=== PATIENT | female | born 1955 | race Caucasian/White ===

== ENCOUNTER 2020-08-07 12:29 | Inpatient (IN) | payer MEDICAID ==
[2020-08-07] MEDS ORDERED: SODIUM CHLORIDE 0.9% 1,000 ML IV STA (12:50)
[2020-08-07 13:15] LABS: Basophils # (A) 0.1 k/uL (0-0.2); Basophils % (A) 1 %; Eosinophils # (A) 0.2 k/uL (0-0.7); Eosinophils % (A) 2 %; HCT 49.2 % (34.0-46.0); HGB 16.9 gm/dL (11.4-16.0); Lymphocytes # (A) 3.3 k/uL (1.0-4.8); Lymphocytes % (A) 33 %; MCH 30.6 pg (25.0-35.0); MCHC 34.4 g/dL (31.0-37.0); MCV 88.9 fL (80.0-100.0); Monocytes # (A) 0.4 k/uL (0-1.0); Monocytes % (A) 4 %; Neutrophils # (A) 6.1 k/uL (1.3-7.7); Neutrophils % (A) 60 %; Platelet Count 272 k/uL (150-450); RBC 5.53 m/uL (3.80-5.40); RDW 12.4 % (11.5-15.5); WBC 10.2 k/uL (3.8-10.6)
[2020-08-07 13:31] LABS: ALT 33 U/L (4-34); AST 26 U/L (14-36); African American GFR (CKD) >90 (>60 ml/min/1.73 sqM); Albumin 4.5 g/dL (3.5-5.0); Alkaline Phosphatase 103 U/L (38-126); Anion Gap 8 mmol/L; Blood Urea Nitrogen 23 mg/dL (7-17); Calcium 9.8 mg/dL (8.4-10.2); Carbon Dioxide 28 mmol/L (22-30); Chloride 100 mmol/L (98-107); Creatine Kinase 73 U/L (30-135); Glucose 439 mg/dL (74-99); Non-African American GFR(CKD) >90 (>60 ml/min/1.73 sqM); Potassium 4.5 mmol/L (3.5-5.1); Sodium 136 mmol/L (137-145); Total Bilirubin 0.7 mg/dL (0.2-1.3); Total Protein 7.6 g/dL (6.3-8.2)
--- NOTE | 2020-08-07 13:32 | ED ---
Neuro HPI - General Chief Complaint: Neuro Symptoms/Deficit Stated Complaint: rt sided numbness Time Seen by Provider: 08/07/20 12:50 Source: patient, RN notes reviewed Mode of arrival: ambulatory Limitations: no limitations - History of Present Illness Is the patient presenting with stroke symptoms?: Yes Initial Comments: This is a 64-year-old female with a history of coronary artery bypass 3 and thoroughly 1999 and also history of stents in both legs history of TIA 2011 and also a left carotid artery occlusion. He has had 2 days ago of right arm numbness yesterday she had right arm numbness and today she has right facial numbness. She has some decreased strength in the extremities also. He states he woke up this way this morning with the facial aspect. She denies any headache dizziness blurry vision nausea vomiting some difficulty with ambulation no palpitations no other complaints or modifying factors - Related Data Home Medications: Home Medications Medication Instructions Recorded Confirmed Aspirin 81 mg PO DAILY 06/18/13 06/18/13 Atorvastatin [Lipitor] 20 mg PO HS 06/18/13 06/18/13 Carvedilol [Coreg] 3.125 mg PO BID 06/18/13 06/18/13 Clopidogrel Bisulfate [Plavix] 75 mg PO DAILY 06/18/13 06/18/13 Insulin Glargine [Lantus] 0 unit SQ HS 06/18/13 06/18/13 Pregabalin [Lyrica] 75 mg PO BID 06/18/13 06/18/13 lisinopriL [Prinivil] 20 mg PO DAILY 06/18/13 06/18/13 Previous Rx's Medication Instructions Recorded Ibuprofen [Motrin] 600 mg PO Q6HR PRN #20 tab 06/18/13 Allergies/Adverse Reactions: Allergies Allergy/AdvReac Type Severity Reaction Status Date / Time No Known Allergies Allergy Verified 08/07/20 12:37 Review of Systems ROS Statement: Those systems with pertinent positive or pertinent negative responses have been documented in the HPI. ROS Other: All systems not noted in ROS Statement are negative. General Exam - General Exam Comments Initial Comments: This a well-developed well-nourished awake alert oriented 3 female Limitations: no limitations General appearance: alert, in no apparent distress Head exam: Present: atraumatic, normocephalic, normal inspection Eye exam: Present: normal appearance, PERRL, EOMI. Absent: scleral icterus, conjunctival injection, periorbital swelling ENT exam: Present: normal exam, mucous membranes moist Neck exam: Present: normal inspection. Absent: tenderness, meningismus, lymphadenopathy Respiratory exam: Present: normal lung sounds bilaterally. Absent: respiratory distress, wheezes, rales, rhonchi, stridor Cardiovascular Exam: Present: regular rate, normal rhythm, normal heart sounds. Absent: systolic murmur, diastolic murmur, rubs, gallop, clicks GI/Abdominal exam: Present: soft, normal bowel sounds. Absent: distended, tenderness, guarding, rebound, rigid Extremities exam: Present: normal inspection, full ROM, normal capillary refill. Absent: tenderness, pedal edema, joint swelling, calf tenderness Back exam: Present: normal inspection Neurological exam: Present: alert, oriented X3, CN II-XII intact, motor sensory deficit (Leg weakness right upper and lower extremity compared to the left facial droop seen) Psychiatric exam: Present: normal affect, normal mood Skin exam: Present: warm, dry, intact, normal color. Absent: rash Stroke MDM - Lab Data Result diagrams: 08/07/20 13:00 08/07/20 13:00 Lab Results 08/07/20 08/07/20 08/07/20 Range/Units 13:00 13:00 13:00 WBC 10.2 (3.8-10.6) k/uL RBC 5.53 H (3.80-5.40) m/uL Hgb 16.9 H (11.4-16.0) gm/dL Hct 49.2 H (34.0-46.0) % MCV 88.9 (80.0-100.0) fL MCH 30.6 (25.0-35.0) pg MCHC 34.4 (31.0-37.0) g/dL RDW 12.4 (11.5-15.5) % Plt Count 272 (150-450) k/uL MPV 8.0 Neutrophils % 60 % Lymphocytes % 33 % Monocytes % 4 % Eosinophils % 2 % Basophils % 1 % Neutrophils # 6.1 (1.3-7.7) k/uL Lymphocytes # 3.3 (1.0-4.8) k/uL Monocytes # 0.4 (0-1.0) k/uL Eosinophils # 0.2 (0-0.7) k/uL Basophils # 0.1 (0-0.2) k/uL PT 10.3 (9.0-12.0) sec INR 1.0 (<1.2) APTT 20.2 L (22.0-30.0) sec Sodium 136 L (137-145) mmol/L Potassium 4.5 (3.5-5.1) mmol/L Chloride 100 (98-107) mmol/L Carbon Dioxide 28 (22-30) mmol/L Anion Gap 8 mmol/L BUN 23 H (7-17) mg/dL Creatinine 0.69 (0.52-1.04) mg/dL Est GFR (CKD-EPI)AfAm >90 (>60 ml/min/1.73 sqM) Est GFR (CKD-EPI)NonAf >90 (>60 ml/min/1.73 sqM) Glucose 439 H (74-99) mg/dL Calcium 9.8 (8.4-10.2) mg/dL Total Bilirubin 0.7 (0.2-1.3) mg/dL AST 26 (14-36) U/L ALT 33 (4-34) U/L Alkaline Phosphatase 103 (38-126) U/L Creatine Kinase 73 (30-135) U/L Troponin I (0.000-0.034) ng/mL Total Protein 7.6 (6.3-8.2) g/dL Albumin 4.5 (3.5-5.0) g/dL 08/07/20 Range/Units 13:00 WBC (3.8-10.6) k/uL RBC (3.80-5.40) m/uL Hgb (11.4-16.0) gm/dL Hct (34.0-46.0) % MCV (80.0-100.0) fL MCH (25.0-35.0) pg MCHC (31.0-37.0) g/dL RDW (11.5-15.5) % Plt Count (150-450) k/uL MPV Neutrophils % % Lymphocytes % % Monocytes % % Eosinophils % % Basophils % % Neutrophils # (1.3-7.7) k/uL Lymphocytes # (1.0-4.8) k/uL Monocytes # (0-1.0) k/uL Eosinophils # (0-0.7) k/uL Basophils # (0-0.2) k/uL PT (9.0-12.0) sec INR (<1.2) APTT (22.0-30.0) sec Sodium (137-145) mmol/L Potassium (3.5-5.1) mmol/L Chloride (98-107) mmol/L Carbon Dioxide (22-30) mmol/L Anion Gap mmol/L BUN (7-17) mg/dL Creatinine (0.52-1.04) mg/dL Est GFR (CKD-EPI)AfAm (>60 ml/min/1.73 sqM) Est GFR (CKD-EPI)NonAf (>60 ml/min/1.73 sqM) Glucose (74-99) mg/dL Calcium (8.4-10.2) mg/dL Total Bilirubin (0.2-1.3) mg/dL AST (14-36) U/L ALT (4-34) U/L Alkaline Phosphatase (38-126) U/L Creatine Kinase (30-135) U/L Troponin I 0.061 H* (0.000-0.034) ng/mL Total Protein (6.3-8.2) g/dL Albumin (3.5-5.0) g/dL - NIH Stroke Scale 1a. Level of Consciousness: (0) alert 1b. LOC Questions: (0) answers correctly 1c. LOC Commands: (0) performs tasks correctly 2. Best Gaze: (0) normal 3. Visual: (0) no visual loss 4. Facial Palsy: (0) normal symmetrical movement 5a. Motor Arm Left: (0) no drift 5b. Motor Arm Right: (0) no drift 6a. Motor Leg Left: (0) no drift 6b. Motor Leg Right: (0) no drift 7. Limb Ataxia: (0) absent 8. Sensory: (0) normal 9. Best Language: (0) no aphasia 10. Dysarthria: (0) normal 11. Extinction/Inattention: (0) no abnormality - Medical Decision Making I did discuss the findings with the patient and family as well as with Dr. Verma patient will be admitted with neurological and cardiology consultation patient does have an elevated troponin. - Radiology Data Radiology results: report reviewed (Image reviewed evidence of a hypodensity in the left frontal lobe which may represent a subacute infarct. CAT scan with contrast shows evidence of a occluded left carotid artery this is chronic and no apparent acute findings are seen here.), image reviewed - EKG Data -: EKG Interpreted by Me EKG shows normal: sinus rhythm (Sinus rhythm 80. Interval 128 QRS duration 84 QT since QTC 380/442 possible left atrial enlargement nonspecific septal change s) Past Medical History Past Medical History: Coronary Artery Disease (CAD), Diabetes Mellitus, Hyperlipidemia, Hypertension, Vascular Disorder Additional Past Medical History / Comment(s): neuropathy History of Any Multi-Drug Resistant Organisms: None Reported Past Surgical History: Coronary Bypass/CABG, Heart Catheterization Additional Past Surgical History / Comment(s): triple bypass Past Psychological History: No Psychological Hx Reported Smoking Status: Current every day smoker Past Alcohol Use History: None Reported Past Drug Use History: Marijuana Course Vital Signs 08/07/20 08/07/20 08/07/20 12:30 13:37 14:00 Temperature 98.3 F Pulse Rate 82 60 61 Respiratory 20 18 18 Rate Blood Pressure 187/85 138/92 O2 Sat by Pulse 95 95 95 Oximetry Disposition Clinical Impression: Cerebrovascular accident (CVA), Transient cerebral ischemia, Elevated troponin Disposition: ADMITTED IP TO THIS HOSP Condition: Stable Referrals: Amish Verma DO [Primary Care Provider] - 1-2 days
--- NOTE | 2020-08-07 13:39 | CT ---
EXAMINATION TYPE: CT brain wo con for TPA DATE OF EXAM: 08/07/2020 COMPARISON: INDICATION: CODE STROKE. Right sided numbness, progressively worsening since Wednesday DLP: 1096.8 mGycm, Automated exposure control for dose reduction was used. CONTRAST: None CT of the brain is performed utilizing 3 mm thick sections through the posterior fossa and 3 mm thick sections through the remaining calvarium. Study is performed within 24 hours of arrival to the hosp ital. No abnormal hyperdensity is present to suggest an acute intracranial hemorrhage. No mass lesion is evident. No acute infarcts are evident. There is hypodensity within the subcortical frontal lobe. This is age indeterminate. Subcortical infarct or chronic white matter change may be present. Consider MRI for ad ditional evaluation. Ventricles and sulci are appropriate for the patient age. Paranasal sinuses and mastoid air cells within the [id number] are clear. IMPRESSIONS: 1. Subcortical hypodensity within the left frontal lobe could be subacute or chronic. Consider MRI for additional evaluation. 2. No definite acute changes identified. MRI can further evaluate the brain.
[2020-08-07 13:41] LABS: Prothrombin Time 10.3 sec (9.0-12.0)
--- NOTE | 2020-08-07 13:42 | XR ---
EXAMINATION TYPE: XR chest 2V DATE OF EXAM: 08/07/2020 COMPARISON: Chest x-ray 06/18/2013 HISTORY: Altered mental status TECHNIQUE: Frontal and lateral views of the chest are obtained. FINDINGS: There is no focal air space opacity, pleural effusion, or pneumothorax seen. The cardiac silhouette size is within normal limits. Patient is post median sternotomy. The osseous structures a re intact, there is thoracic spondylosis, the aorta is dense. IMPRESSION: No acute cardiopulmonary process.
[2020-08-07 13:45] LABS: Partial Thromboplastin Time 20.2 sec (22.0-30.0)
--- NOTE | 2020-08-07 14:55 | CT ---
EXAMINATION TYPE: CT angio head neck DATE OF EXAM: 08/07/2020 HISTORY: Code stroke COMPARISON: None CT DLP: 585.8 mGycm. Automated Exposure Control for Dose Reduction was Utilized. TECHNIQUE: CTA scan of the neck is performed without and with IV Contrast, patient injected with 65 ml mL of Isovue 370, axial images are obtained, coronal and sagittal reformatted images are reviewed. Three-D reconstructed images are created on an independent workstation and reviewed. Source images are reviewed. FINDINGS: Carotid/Vascular Structures: There is a four-vessel arch. Right vertebral artery is not identified on reconstructed images but is evident and codominant on the source images. These extend to the skull b ase. Intracranial vertebral arteries combine the basilar artery normally. Atherosclerotic calcification at the bilateral carotid bifurcations. Significant flow-limiting stenos is is not evident on the right. Narrowing is estimated at 30% based on measurement. Atherosclerotic calcification is at the left carotid bifurcation. Contrast extends into external [place] arteries. No contrast within the internal carotid artery is evident. Some retrograde fill of the foramen Lacerum may be present. Cervical of [place]: Vertebral basilar system appears normal. Posterior cerebral vasculature is unrema rkable. Internal carotid arteries bifurcate normally into A1 and M1 segments. The left A1 segment courtney ears hypoplastic. There may be retrograde flow of the distal left internal carotid artery. A2 segment s are normal. The anterior communicating artery is patent. Left Posterior communicating artery is pat ent. Right posterior communicating artery is patent. IMPRESSION: 1. Atheromatous plaquing bilateral carotid bifurcations. There appears to be obstruction of the left internal carotid artery at its origin. Atheromatous plaquing without significant stenosis at the rig ht internal carotid artery origin. 2. Normal lower [place] of [place]
[2020-08-07] MEDS ORDERED: ASPIRIN 325 MG TAB PO STA (15:15)
[2020-08-07] MEDS: SODIUM CHLORIDE 0.9% 1,000 ML IV SCH (15:28)
[2020-08-07] MEDS: carvediloL 3.125 MG TAB PO SCH (19:12)
[2020-08-07 20:25] LABS: Glucose,Whole Blood 390 mg/dL (75-99)
[2020-08-07] MEDS ORDERED: PREGABALIN 75 MG CAP PO SCH (21:00)
[2020-08-07] MEDS ORDERED: ATORVASTATIN 20 MG TAB PO SCH (21:00)
[2020-08-07] MEDS: GABAPENTIN 100 MG CAP PO SCH (21:33)
[2020-08-07] MEDS: INSULIN DETEMIR (LEVEMIR) 100 UNIT/ML SYR SQ SCH (21:33)
[2020-08-08] MEDS: SODIUM CHLORIDE 0.9% 1,000 ML IV SCH ×3 (04:35→20:25)
[2020-08-08 05:28] LABS: Hemoglobin A1C 11.1 % (4.0-6.0)
[2020-08-08 06:22] LABS: Glucose,Whole Blood 104 mg/dL (75-99)
[2020-08-08] MEDS: INSULIN ASPART (NovoLOG) 100 UNIT/ML VIAL SQ SCH ×4 (06:28→20:22)
[2020-08-08] MEDS: carvediloL 3.125 MG TAB PO SCH ×2 (06:32→17:05)
[2020-08-08] MEDS: GABAPENTIN 100 MG CAP PO SCH ×2 (08:02→20:22)
[2020-08-08] MEDS: lisinopriL 20 MG TAB PO SCH (08:03)
[2020-08-08] MEDS ORDERED: ASPIRIN 325 MG TAB PO SCH (09:00)
[2020-08-08] MEDS ORDERED: CLOPIDOGREL 75 MG TAB PO SCH (09:00)
[2020-08-08] MEDS: MAGNESIUM OXIDE 400 MG TAB PO SCH (09:38)
[2020-08-08] MEDS: CHOLECALCIFEROL 25 MCG (1000 IU) TABLET PO SCH (09:38)
[2020-08-08] MEDS: PANTOPRAZOLE 40 MG/10 ML VIAL IVP SCH (09:38)
[2020-08-08 09:43] LABS: Chol/HDL Ratio 7.74; LDL Cholesterol,Calculated 171.2 mg/dL (0.0-131.0); VLDL Calculation 57.8 mg/dL (5.00-40.00)
--- NOTE | 2020-08-08 11:29 | P.CNNES ---
History of Present Illness Consult date: 08/08/20 Requesting physician: Steve Seay Reason for Consult: TIA vs stroke History of Present Illness: This is a 64-year-old woman with medical history of transient ischemic attack in 2011, left carotid occlusion, right carotid stenosis, coronary artery disease status post CABG who presented to the emergency department on 08/07/2020 for right sided numbness and tingling. She initially had right arm numbness and tingling for the last 2 days prior to presentation then noticed progressing to right lower extremity then day prior to that presented to the hospital it involved the right face. He denies of any focal weakness, any difficulty getting words out, and difficulty walking, any visual disturbance, denies of any headache. She stated that she already has a known diagnosis of left carotid occlusion and she has right carotid stenosis and she follows up with Dr. Pena (concrete mixer operator over [facility]) and has survielance ultrasound. He smokes one half pack which last for about a week and she's been smoking for years. Denies any illicit drug use. Social drinks alcohol. Her medication consist of aspirin 81, Lipitor 80 mg, carvedilol, Plavix 75, gabapentin 100 mg 1 tablet twice a day, insulin, lispro pill. Some of the workup in the hospital consisted of: Initial vital signs: Blood pressure of 187/85, heart rate of 82, respiratory of 20, temperature of 98.3 Fahrenheit oral and pulse ox of 95% room air. CT of the head is reported as subcortical hypodensity within the left frontal lobe could be subacute or chronic. Consider MRI for additional evaluation. No definite acute changes identified. MRI can further evaluate the the brain. CT angiography of the head and neck was reported as atheromatous plaque in bilateral carotid bifurcation. There appears to be obstruction of the left internal carotid artery at its origin. Atheromatous plaquing without significant stenosis at the right internal carotid artery origin. Normal [place] of [place]. EKG is reported as normal sinus rhythm. Possible left atrial enlargement. Septal infarct, age undetermined. Abnormal EKG. Initial sodium is 136 which is mildly low and the glucose is 439 which is elevated. The hemoglobin A1c is 11.1 which patient's diabetes was uncontrolled AST is 26 and ALT of 33, creatinine is 0.69 and all within normal limits Troponin is 0.061 repeated 0.074 which are elevated. Review of Systems Review of system: The 12 point system was reviewed and apparent positive and negative per HPI. Past Medical History Past Medical History: Coronary Artery Disease (CAD), Diabetes Mellitus, Hyperlipidemia, Hypertension, Vascular Disorder Additional Past Medical History / Comment(s): neuropathy, stents in bilat legs History of Any Multi-Drug Resistant Organisms: None Reported Past Surgical History: Coronary Bypass/CABG, Heart Catheterization Additional Past Surgical History / Comment(s): triple bypass 2013 Past Anesthesia/Blood Transfusion Reactions: No Reported Reaction Past Psychological History: No Psychological Hx Reported Smoking Status: Current every day smoker Past Alcohol Use History: None Reported Past Drug Use History: Marijuana Medications and Allergies Home Medications Medication Instructions Recorded Confirmed Type Aspirin 81 mg PO DAILY 06/18/13 08/07/20 History Carvedilol [Coreg] 3.125 mg PO BID 06/18/13 08/07/20 History Clopidogrel Bisulfate [Plavix] 75 mg PO DAILY 06/18/13 08/07/20 History Atorvastatin [Lipitor] 80 mg PO HS 08/07/20 08/07/20 History Cholecalciferol (Vitamin D3) 125 mcg PO DAILY 08/07/20 08/07/20 History [Vitamin D3 (5000 Iu)] Citrical(Max +) 1 tab PO DAILY 08/07/20 08/07/20 History Gabapentin [Neurontin] 100 mg PO BID 08/07/20 08/07/20 History Insulin Glargine,Hum.rec.anlog 80 unit SQ HS 08/07/20 08/07/20 History [Basaglar Kwikpen U-100] Lisinopril [Prinivil] 10 mg PO DAILY 08/07/20 08/07/20 History Magnesium Oxide 400 mg PO DAILY 08/07/20 08/07/20 History Turmeric/Turmeric Root Extract 1 cap PO BID 08/07/20 08/07/20 History [Turmeric 450-50 mg Capsule] Allergies Allergy/AdvReac Type Severity Reaction Status Date / Time No Known Allergies Allergy Verified 08/07/20 15:27 Physical Examination - Vital Signs Vital Signs: Vital Signs Temp Pulse Pulse Resp BP BP Pulse Ox 08/08/20 08:00 16 08/08/20 07:57 96.1 F L 68 16 132/58 95 08/08/20 04:00 97.4 F L 68 17 116/65 93 L 08/07/20 23:14 65 16 117/73 96 08/07/20 20:00 98.5 F 58 L 16 130/67 96 08/07/20 19:06 97.5 F L 77 16 142/74 95 08/07/20 17:18 98.3 F 61 18 156/75 95 08/07/20 17:00 61 18 156/75 95 08/07/20 16:00 63 18 140/85 95 08/07/20 15:17 61 18 95 08/07/20 15:00 97 18 135/62 95 08/07/20 14:00 61 18 133/63 95 08/07/20 13:37 60 18 138/92 95 08/07/20 12:30 98.3 F 82 20 187/85 95 Intake and Output 08/07/20 08/08/20 08/08/20 22:59 06:59 14:59 Other: # Voids 1 Weight 88.18 kg 87.8 kg GENERAL: The patient is lying in bed and is not in acute distress. CHEST: The heart rate is regular rate rhythm. No murmurs to auscultation. No carotid bruit noted bilaterally. LUNG: Clear to auscultation bilaterally no wheezing noted throughout. Not labored breathing. ABDOMEN/GI: Bowel sounds present in all 4 quadrants. No tenderness to palpation throughout. NEUROLOGICAL: Higher mental function: The patient is awake, alert, oriented to self, place and time. Patient is following commands. No aphasia and no neglect. Cranial nerves: The pupils are round, equal and reactive to light and accommodation. Visual melvin are full to confrontation throughout. Extraocular movement is intact no nystagmus is noted. Facial sensation is normal to touch throughout. The facial strength is right nasolabial flattening (she stated old). Hearing is normal bilaterally to hand rub. Tongue is midline and moved [id number] without any difficulty. No dysarthria is noted. Shoulder shrug is normal bilaterally. Motor: Gait is deferred. The strength is 5 over 5 throughout. Normal tone and bulk. Cerebellum: Normal finger to nose heel to phipps bilaterally. Sensation: Sensation is normal to touch throughout but feels her entire right side is tingling. Reflexes (right/left): 2+ Plantars are downgoing bilaterally. Results Agustin virus PCR was not detected. - Laboratory Findings CBC and BMP: 08/07/20 13:00 08/07/20 13:00 Abnormal Lab Findings: Abnormal Labs 08/07/20 08/07/20 08/07/20 13:00 13:00 13:00 RBC 5.53 H Hgb 16.9 H Hct 49.2 H APTT 20.2 L Sodium 136 L BUN 23 H Glucose 439 H POC Glucose (mg/dL) Hemoglobin A1c Troponin I 08/07/20 08/07/20 08/07/20 13:00 16:53 20:22 RBC Hgb Hct APTT Sodium BUN Glucose POC Glucose (mg/dL) 390 H Hemoglobin A1c Troponin I 0.061 H* 0.074 H* 08/07/20 08/07/20 08/08/20 20:24 20:24 06:18 RBC Hgb Hct APTT Sodium BUN Glucose POC Glucose (mg/dL) 104 H Hemoglobin A1c 11.1 H Troponin I 0.057 H* Assessment and Plan Assessment: Entire right sided paresthesia, Seems subacute to chronic ischemic stroke (over the subcortical left frontal). Likely etiology is embolic and seems artery to artery. Known history of Left internal carotid artery obstruction (and is confirmed by our CTA) Atheromatous plaquing without significant stenosis at the right internal carotid artery origin. Elevated troponin History of transient ischemic attack 2011 Uncontrolled diabetes mellitus (with HbA1c 11.1) Coronary artery disease status post CABG Nicotine dependence Plan: CT of the head is reported as subcortical hypodensity within the left frontal lobe could be subacute or chronic. Consider MRI for additional evaluation. No definite acute changes identified. MRI can further evaluate the the brain. CT angiography of the head and neck was reported as atheromatous plaque in bilateral carotid bifurcation. There appears to be obstruction of the left internal carotid artery at its origin. Atheromatous plaquing without significant stenosis at the right internal carotid artery origin. Normal [place]. The hemoglobin A1c is 11.1 which patient's diabetes was uncontrolled She was continued to her home dose of aspirin 81 and Plavix 75 mg. I stopped the Plavix and I started the patient on Brilinta 90 mg 1 tablet twice a day. Continue Lipitor 80mg qhs for secondary stroke prophylaxis. I ordered MRI of the brain, TSH, 2-D echo. Ordered carotid duplex. Lipid panel is ordered and is pending PT, OT and INSURANCE ANALYST are consulted History patient on cardiac monitoring and every 4 hours neuro checks. Consulted vascular surgery team. Cardiology is consulted for elevated troponin We'll defer the rest of the medical management to primary team. The patient is counseled on smoking cessation. Thank you for the consultation Jae Phelps M.D. Neuro-hospitalist Time with Patient: Greater than 30
--- NOTE | 2020-08-08 11:55 | P.CRDCN ---
History of Present Illness History of present illness: HISTORY OF PRESENTING ILLNESS This is a pleasant 64-year-old female past medical history significant for coronary artery disease status post three-vessel coronary artery bypass graft in 03/2012, TIA, left carotid occlusion, hypertension, hyperlipidemia, diabetes, chronic nicotine dependence. She follows with Dr. Ton Pena at [facility]. She follows with him reguarly states she sees him every 6 months. We have been asked to see in consultation for elevated troponin. Patient presents to the emergency department with worsening right-sided numbness and tingling. She states it initially started her right arm about 2-3 days and progressively progressed to her right lower extremity and her right face. She denies chest pain, shortness of breath, palpitations, lightheadedness, dizziness, nausea, abdominal pain, weakness, visual disturbances, headache, difficulty walking. No symptoms of orthopnea or PND. She states that when she had her TIA in 2011, they told her she also had a myocardial infarction. At that time she did not have any symptoms. She underwent cardiac catheterization which was abnormal and was recommended for a CABG which was done 03/2012. She chronic smoker he smokes one half to one full pack a day, she denies illicit drug use, she denies alcohol use, she occasionally smokes marijuana. She denies history of atrial fibrillation. She states she is compliant with medications. Family history includes father having an ME in his 60s, mother had a stroke in her late 60s. Troponin trend is 0.06,0.07, 0.05 DIAGNOSTICS EKG reveals sinus rhythm, heart rate afebrile, T wave inversions in lead I, aVL, V2. Prior EKG in 2013 with similar findings. No significant ST-T wave abnormalities Telemetry tracings indicate sinus mechanism HR 50-60s NO atrial fibrillation or arrhythmia noted Chest xray no acute cardiopulmonary process CT brain- revealed solid cortical hypodensity in the left frontal lobe could be subacute versus chronic. No acute changes. CT angiogram revealed obstruction of the left internal carotid artery. Atheromatous plaque without significant stenosis at the right internal carotid artery. Laboratory reviewed, Troponin trend is 0.06,0.07, 0.05, WBC 10.2, 16.9, platelets 272, sodium 136, potassium 4.5, troponin 23, serum creatinine 0.69, triglycerides 289, cholesterol 263, LDL 171, HD 34 Current home cardiac medications include lisinopril 10 mg daily, Plavix 75 mg daily, Coreg 3.125 mg twice a day, atorvastatin 80 mg nightly, aspirin [address] [facility] -Cardiac catheterization shows severe diffuse triple-vessel disease. -ASIA was done showed an EF 30% with significant anterior wall hypokinesis and mild inferior wall hypokinesis -CABG x 3, GARCIA to LAD, 1.25 mm vessel distal disease. GARCIA to plan this is low. Aorta reverse saphenous vein graft to an OM 1.25 mm vessel with severe distal disease. Aorta reverse saphenous vein graft to PDA 1.25 mm vessel severe distal disease. REVIEW OF SYSTEMS At the time of my exam: CONSTITUTIONAL: Denies fever or chills. CARDIOVASCULAR: Denies chest pain, shortness of breath, orthopnea, PND or palpitations. RESPIRATORY: Denies cough. GASTROINTESTINAL: Denies abdominal pain, diarrhea, constipation, nausea or vomiting. MUSCULOSKELETAL: Denies myalgias. NEUROLOGIC: +tingling right sided- arm, leg and right facial +numbness right s ided Denies headache or weakness. ENDOCRINE: Denies fatigue, weight change, polydipsia or polyurina. GENITOURINARY: Denies burning, hematuria or urgency with micturation. HEMATOLOGIC: Denies history of anemia or bleeding. PHYSICAL EXAMINATION Blood pressure 132/58 heart rate 68 afebrile and maintaining oxygen saturation 95% room air CONSTITUTIONAL: No apparent distress. HEENT: Head is normocephalic. Pupils are equal, round. Sclerae anicteric. Mucous membranes of the mouth are moist. No JVD. No carotid bruit. CHEST EXAMINATION: Lungs are clear to auscultation. No chest wall tenderness is noted on palpation or with deep breathing. HEART EXAMINATION: Regular rate and rhythm. S1, S2 heard. No murmurs, gallops or rub. ABDOMEN: Soft, nontender. Positive bowel sounds. EXTREMITIES: 2+ peripheral pulses, no lower extremity edema and no calf tenderness. NEUROLOGIC EXAMINATION: Patient is awake, alert and oriented x3. ASSESSMENT Elevated troponin, not indicative of acute coronary syndrome Right sided paresthesia - per neurology seems subacute to chronic ischemic stroke Coronary artery disease status post three-vessel CABG 03/2012 Ischemic Cardiomyopathy Hypertension Type 2 diabetes Dyslipidemia PLAN -Elevated troponin, not indicative of acute coronary syndrome -2D echocardiogram ordered, will follow up with results -Continue aspirin, statin, beta trisha and lisinopril -Patient switched to Brilinta from Plavix -Smoking cessation discussed with the patient and highly recommended Nurse Practitioner note has been reviewed, I agree with a documented findings and plan of care. Patient was seen and examined. Past Medical History Past Medical History: Coronary Artery Disease (CAD), Diabetes Mellitus, Hyperlipidemia, Hypertension, Vascular Disorder Additional Past Medical History / Comment(s): neuropathy, stents in bilat legs History of Any Multi-Drug Resistant Organisms: None Reported Past Surgical History: Coronary Bypass/CABG, Heart Catheterization Additional Past Surgical History / Comment(s): triple bypass 2012 Past Anesthesia/Blood Transfusion Reactions: No Reported Reaction Past Psychological History: No Psychological Hx Reported Smoking Status: Current every day smoker Past Alcohol Use History: None Reported Past Drug Use History: Marijuana Medications and Allergies Home Medications Medication Instructions Recorded Confirmed Type Aspirin 81 mg PO DAILY 06/18/13 08/07/20 History Carvedilol [Coreg] 3.125 mg PO BID 06/18/13 08/07/20 History Clopidogrel Bisulfate [Plavix] 75 mg PO DAILY 06/18/13 08/07/20 History Atorvastatin [Lipitor] 80 mg PO HS 08/07/20 08/07/20 History Cholecalciferol (Vitamin D3) 125 mcg PO DAILY 08/07/20 08/07/20 History [Vitamin D3 (5000 Iu)] Citrical(Max +) 1 tab PO DAILY 08/07/20 08/07/20 History Gabapentin [Neurontin] 100 mg PO BID 08/07/20 08/07/20 History Insulin Glargine,Hum.rec.anlog 80 unit SQ HS 08/07/20 08/07/20 History [Basaglar Kwikpen U-100] Lisinopril [Prinivil] 10 mg PO DAILY 08/07/20 08/07/20 History Magnesium Oxide 400 mg PO DAILY 08/07/20 08/07/20 History Turmeric/Turmeric Root Extract 1 cap PO BID 08/07/20 08/07/20 History [Turmeric 450-50 mg Capsule] Allergies Allergy/AdvReac Type Severity Reaction Status Date / Time No Known Allergies Allergy Verified 08/07/20 15:27 Physical Exam Vitals: Vital Signs Temp Pulse Pulse Resp BP BP Pulse Ox 08/08/20 04:00 97.4 F L 68 17 116/65 93 L 08/07/20 23:14 65 16 117/73 96 08/07/20 20:00 98.5 F 58 L 16 130/67 96 08/07/20 19:06 97.5 F L 77 16 142/74 95 08/07/20 17:18 98.3 F 61 18 156/75 95 08/07/20 17:00 61 18 156/75 95 08/07/20 16:00 63 18 140/85 95 08/07/20 15:17 61 18 95 08/07/20 15:00 97 18 135/62 95 08/07/20 14:00 61 18 133/63 95 08/07/20 13:37 60 18 138/92 95 08/07/20 12:30 98.3 F 82 20 187/85 95 Intake and Output 08/07/20 08/07/20 08/08/20 14:59 22:59 06:59 Other: # Voids 1 Weight 88.904 kg 88.18 kg 87.8 kg Results 08/07/20 13:00 08/07/20 13:00 Cardiac Enzymes 08/07/20 08/07/20 08/07/20 Range/Units 13:00 13:00 16:53 AST 26 (14-36) U/L Troponin I 0.061 H* 0.074 H* (0.000-0.034) ng/mL 08/07/20 Range/Units 20:24 AST (14-36) U/L Troponin I 0.057 H* (0.000-0.034) ng/mL Coagulation 08/07/20 Range/Units 13:00 PT 10.3 (9.0-12.0) sec APTT 20.2 L (22.0-30.0) sec CBC 08/07/20 Range/Units 13:00 WBC 10.2 (3.8-10.6) k/uL RBC 5.53 H (3.80-5.40) m/uL Hgb 16.9 H (11.4-16.0) gm/dL Hct 49.2 H (34.0-46.0) % Plt Count 272 (150-450) k/uL Comprehensive Metabolic Panel 08/07/20 Range/Units 13:00 Sodium 136 L (137-145) mmol/L Potassium 4.5 (3.5-5.1) mmol/L Chloride 100 (98-107) mmol/L Carbon Dioxide 28 (22-30) mmol/L BUN 23 H (7-17) mg/dL Creatinine 0.69 (0.52-1.04) mg/dL Glucose 439 H (74-99) mg/dL Calcium 9.8 (8.4-10.2) mg/dL AST 26 (14-36) U/L ALT 33 (4-34) U/L Alkaline Phosphatase 103 (38-126) U/L Total Protein 7.6 (6.3-8.2) g/dL Albumin 4.5 (3.5-5.0) g/dL Current Medications Generic Name Dose Route Start Last Admin Trade Name Freq PRN Reason Stop Dose Admin Aspirin 325 mg 08/08/20 09:00 Aspirin 325 Mg Tab PO DAILY TU Atorvastatin Calcium 20 mg 08/07/20 21:00 08/07/20 21:33 Atorvastatin 20 Mg Tab PO 20 mg HS TU Administration Carvedilol 3.125 mg 08/07/20 17:30 08/08/20 06:32 Carvedilol 3.125 Mg Tab PO 3.125 mg BID-W/MEALS TU Administration Clopidogrel Bisulfate 75 mg 08/08/20 09:00 Clopidogrel 75 Mg Tab PO DAILY TU Gabapentin 100 mg 08/07/20 21:30 08/07/20 21:33 Gabapentin 100 Mg Cap PO 100 mg BID TU Administration Sodium Chloride 1,000 mls @ 100 mls/hr 08/07/20 15:15 08/08/20 04:35 Saline 0.9% IV Not Given .Q10H [facility] Insulin Aspart 0 unit 08/08/20 07:30 08/08/20 06:28 Insulin Aspart (Novolog) 100 Unit/Ml Vial SQ Not Given ACHS [facility] Protocol Insulin Detemir 80 unit 08/07/20 21:30 08/07/20 21:33 Insulin Detemir (Levemir) 100 Unit/Ml Syr SQ 80 unit HS TU Administration Lisinopril 20 mg 08/08/20 09:00 Lisinopril 20 Mg Tab PO DAILY TU Intake and Output 08/07/20 08/07/20 08/08/20 14:59 22:59 06:59 Other: # Voids 1 Weight 88.904 kg 88.18 kg 87.8 kg Patient Weight 08/08/20 06:59 Weight 87.8 kg 08/07/20 13:00 08/07/20 13:00
[2020-08-08 12:05] LABS: Glucose,Whole Blood 134 mg/dL (75-99)
--- NOTE | 2020-08-08 12:08 | ECHOF ---
Referral Reason:stroke. MEASUREMENTS -------- HEIGHT: 162.6 cm WEIGHT: 87.5 kg BP: 132/58 RVIDd: 2.2 cm (< 3.3) IVSd: 1.3 cm (0.6 - 1.1) LVIDd: 3.5 cm (3.9 - 5.3) LVPWd: 1.2 cm (0.6 - 1.1) IVSs: 1.5 cm LVIDs: 2.6 cm LVPWs: 1.6 cm LA Diam: 3.8 cm (2.7 - 3.8) LAESV Index (A-L): 25.56 ml/m Ao Diam: 2.7 cm (2.0 - 3.7) AV Cusp: 1.6 cm (1.5 - 2.6) MV EXCURSION: 16.356 mm (> 18.000) MV EF SLOPE: 73 mm/s (70 - 150) EPSS: 0.4 cm MV E Jimmy: 0.77 m/s MV DecT: 282 ms MV A Jimmy: 1.02 m/s MV E/A Ratio: 0.75 FINDINGS -------- Sinus rhythm. This was a technically adequate study. The left ventricular size is normal. There is mild concentric left ventricular hypertrophy. Overa ll left ventricular systolic function is normal with, an EF between 55 - 60 %. Basal anteroseptal L V wall motion is hypokinetic. The right ventricle is normal in size. Normal LA size by volume 22+/-6 ml/m2. The right atrium is normal in size. Interatrial and interventricular septum intact. There is mild aortic valve sclerosis. Trace amount of aortic regurgitation. The mitral valve leaflets are mildly thickened. Mild mitral annular calcification present. There is trace to mild mitral regurgitation. The tricuspid valve appears structurally normal. There is no pulmonic regurgitation present. The aortic root size is normal. Normal inferior vena cava with normal inspiratory collapse consistent with estimated right atrial pre ssure of 5 mmHg. There is no pericardial effusion. CONCLUSIONS -------- 1. The left ventricular size is normal. 2. There is mild concentric left ventricular hypertrophy. 3. Overall left ventricular systolic function is normal with, an EF between 55 - 60 %. 4. Basal anteroseptal LV wall motion is hypokinetic. 5. There is mild aortic valve sclerosis. 6. Trace amount of aortic regurgitation. 7. The mitral valve leaflets are mildly thickened. 8. Mild mitral annular calcification present. 9. There is trace to mild mitral regurgitation. 10. There is no pericardial effusion. SPA ASSOCIATE: Mally Stinson RDCS
[2020-08-08] MEDS: TICAGRELOR 90 MG TAB PO SCH ×2 (12:18→20:21)
--- NOTE | 2020-08-08 12:26 | US ---
EXAMINATION TYPE: US carotid duplex BILAT DATE OF EXAM: 08/08/2020 COMPARISON: CTA 08/07/2020 CLINICAL HISTORY: carotid stenosis. EXAM MEASUREMENTS: RIGHT: Peak Systolic Velocity (PSV) cm/sec ----- Right CCA: 71.1 ----- Right ICA: 203.2 ----- Right ECA: 155.4 ICA/CCA ratio: 2.9 RIGHT: End Diastole cm/sec ----- Right CCA: 18.8 ----- Right ICA: 49.9 ----- Right ECA: 13.7 LEFT: Peak Systolic Velocity (PSV) cm/sec ----- Left CCA: 58.1 ----- Left ICA: 0.0 ----- Left ECA: 172.5 ICA/CCA ratio: 0 LEFT: End Diastole cm/sec ----- Left CCA: 8.9 ----- Left ICA: 0.0 ----- Left ECA: 10.9 VERTEBRALS (direction of flow): Right Vertebral: Antegrade Left Vertebral: Antegrade Rhythm: Arrhythmia Severe plaque visualized bilaterally. Unable to obtain doppler in left ICA. Elevated velocities right ICA, right ECA, left ECA IMPRESSION: 1. Complete versus near complete occlusion throughout the left internal carotid artery. 2. 50-69% stenosis of the right internal carotid artery by peak systolic velocity criteria. Criteria for Assigning % of Stenosis / Diameter reduction (Estimation based on the indirect measurements of the internal carotid artery velocities (ICA PSV). 1. Normal (no stenosis)=ICA PSV < 125 cm/s: ratio < 2.0: ICA EDV<40 cm/s. 2. Less than 50% stenosis=ICA PSV < 125 cm/s: ratio < 2.0: ICA EDV<40 cm/s. 3. 50 to 69% stenosis=ICA PSV of 125 to 230 cm/s: ration 2.0 ? 4.0: ICA EDV 40-100 cm/s. 4. Greater than 70% stenosis to near occlusion= ICA PSV > 230 cm/s: ratio > 4.0: ICA EDV > 100 cm/s. 5. Near occlusion= ICA PSV velocities may be low or undetectable: variable ratio and ICA EDV. 6. Total occlusion=unable to detect flow.
--- NOTE | 2020-08-08 12:36 | P.HPIM ---
History of Present Illness H&P Date: 08/08/20 Chief Complaint: Right-sided weakness This is a 64-year-old female with past medical history of TIA 2012 ,CAD, history of CABG, diabetes mellitus, hyperlipidemia, hypertension, left carotid occlusion ,vascular disorder/neuropathy with stents of bilateral legs, ongoing nicotine dependence presented to the ER with complaints of worsening right-sided numbness/tingling for the last 3 days. Patient reports 3 days ago, initially developed right arm numbness, followed by right leg numbness the following day, with further progression yesterday into the right side of her face with no facial droop . Reports did not lose motor strength. Denied any focal deficits, lightheadedness or dizziness. Denies headache. Reports no difficulties with speech or swallowing.Denies nausea vomiting or diarrhea. Denies abdominal pain. Denies chest pain, palpitations or shortness of breath. Troponin 0.061, 0.074, 0.057. EKG reported sinus rhythm, possible left atrial enlargement septal inf arct, age undetermined.Brain CT reported subcortical hypodensity within the left frontal lobe could be subacute or chronic, no definite acute changes identified, MRI recommended. CT angiography of the head and neck reported as atheromatous plaque in bilateral carotid bifurcation. There appears to be obstruction of the left internal carotid artery at its origin. Atheromatous plaquing without sign ificant stenosis at the right internal carotid artery origin. Normal [place]. Chest x-ray reported no acute pulmonary process. Afebrile, normal WBC. Hemoglobin 16.9, platelets 272, INR 1. Sodium 136, potassium 4.5, BUN 23, creatinine 0.69. Glucose 439 on admission with A1c of 11.1. Lipid panel pending. Review of Systems ROS Statement: Those systems with pertinent positive or pertinent negative responses have been documented in the HPI. ROS Other: All systems not noted in ROS Statement are negative. Past Medical History Past Medical History: Coronary Artery Disease (CAD), Diabetes Mellitus, Hyperlipidemia, Hypertension, Vascular Disorder Additional Past Medical History / Comment(s): neuropathy, stents in bilat legs History of Any Multi-Drug Resistant Organisms: None Reported Past Surgical History: Coronary Bypass/CABG, Heart Catheterization Additional Past Surgical History / Comment(s): triple bypass 2012 Past Anesthesia/Blood Transfusion Reactions: No Reported Reaction Past Psychological History: No Psychological Hx Reported Smoking Status: Current every day smoker Past Alcohol Use History: None Reported Past Drug Use History: Marijuana Medications and Allergies Home Medications Medication Instructions Recorded Confirmed Type Aspirin 81 mg PO DAILY 06/18/13 08/07/20 History Carvedilol [Coreg] 3.125 mg PO BID 06/18/13 08/07/20 History Clopidogrel Bisulfate [Plavix] 75 mg PO DAILY 06/18/13 08/07/20 History Atorvastatin [Lipitor] 80 mg PO HS 08/07/20 08/07/20 History Cholecalciferol (Vitamin D3) 125 mcg PO DAILY 08/07/20 08/07/20 History [Vitamin D3 (5000 Iu)] Citrical(Max +) 1 tab PO DAILY 08/07/20 08/07/20 History Gabapentin [Neurontin] 100 mg PO BID 08/07/20 08/07/20 History Insulin Glargine,Hum.rec.anlog 80 unit SQ HS 08/07/20 08/07/20 History [Basaglar Kwikpen U-100] Lisinopril [Prinivil] 10 mg PO DAILY 08/07/20 08/07/20 History Magnesium Oxide 400 mg PO DAILY 08/07/20 08/07/20 History Turmeric/Turmeric Root Extract 1 cap PO BID 08/07/20 08/07/20 History [Turmeric 450-50 mg Capsule] Allergies Allergy/AdvReac Type Severity Reaction Status Date / Time No Known Allergies Allergy Verified 08/07/20 15:27 Physical Exam Vitals: Vital Signs Temp Pulse Pulse Resp BP BP Pulse Ox 08/08/20 08:00 16 08/08/20 07:57 96.1 F L 68 16 132/58 95 08/08/20 04:00 97.4 F L 68 17 116/65 93 L 08/07/20 23:14 65 16 117/73 96 08/07/20 20:00 98.5 F 58 L 16 130/67 96 08/07/20 19:06 97.5 F L 77 16 142/74 95 08/07/20 17:18 98.3 F 61 18 156/75 95 08/07/20 17:00 61 18 156/75 95 08/07/20 16:00 63 18 140/85 95 08/07/20 15:17 61 18 95 08/07/20 15:00 97 18 135/62 95 08/07/20 14:00 61 18 133/63 95 08/07/20 13:37 60 18 138/92 95 08/07/20 12:30 98.3 F 82 20 187/85 95 Intake and Output 08/07/20 08/08/20 08/08/20 22:59 06:59 14:59 Other: # Voids 1 Weight 88.18 kg 87.8 kg PHYSICAL EXAM: VITAL SIGNS: [As above] GENERAL: Sitting up in bed, no acute distress HEENT: Conjunctivae normal. eyes normal. NECK: No JVD. No carotid bruits bilaterally.No thyroid enlargement. No LNs CARDIOVASCULAR: S1, S2 regular.. No murmur RESPIRATION: Breath sounds diminished in the bases. No rhonchi or crackles. No bronchial breathing. ABDOMEN: Soft, nontender . No guarding. no masses palpable. No ascites, No hepatosplenomegaly.Bowel sounds heard. LEGS: No edema. no swelling PSYCHIATRY: Alert and oriented X3, mood and affect normal. NERVOUS SYSTEM: Cranial N 2-12 grossly normal. Moves all 4 limbs. No focal deficits. Strength and sensation grossly intact. Skin: Warm and dry, no rash Lymphatic system. No LN neck axilla. Results CBC & Chem 7: 08/07/20 13:00 08/07/20 13:00 Labs: Abnormal Lab Results - Last 24 Hours (Table) 08/07/20 08/07/20 08/07/20 Range/Units 13:00 13:00 13:00 RBC 5.53 H (3.80-5.40) m/uL Hgb 16.9 H (11.4-16.0) gm/dL Hct 49.2 H (34.0-46.0) % APTT 20.2 L (22.0-30.0) sec Sodium 136 L (137-145) mmol/L BUN 23 H (7-17) mg/dL Glucose 439 H (74-99) mg/dL POC Glucose (mg/dL) (75-99) mg/dL Hemoglobin A1c (4.0-6.0) % Troponin I (0.000-0.034) ng/mL 08/07/20 08/07/20 08/07/20 Range/Units 13:00 16:53 20:22 RBC (3.80-5.40) m/uL Hgb (11.4-16.0) gm/dL Hct (34.0-46.0) % APTT (22.0-30.0) sec Sodium (137-145) mmol/L BUN (7-17) mg/dL Glucose (74-99) mg/dL POC Glucose (mg/dL) 390 H (75-99) mg/dL Hemoglobin A1c (4.0-6.0) % Troponin I 0.061 H* 0.074 H* (0.000-0.034) ng/mL 08/07/20 08/07/20 08/08/20 Range/Units 20:24 20:24 06:18 RBC (3.80-5.40) m/uL Hgb (11.4-16.0) gm/dL Hct (34.0-46.0) % APTT (22.0-30.0) sec Sodium (137-145) mmol/L BUN (7-17) mg/dL Glucose (74-99) mg/dL POC Glucose (mg/dL) 104 H (75-99) mg/dL Hemoglobin A1c 11.1 H (4.0-6.0) % Troponin I 0.057 H* (0.000-0.034) ng/mL Thrombosis Risk Factor Assmnt - Choose All That Apply Each Risk Factor Represents 2 Points: Age 61-74 years Thrombosis Risk Factor Assessment Total Risk Factor Score: 2 Thrombosis Risk Factor Assessment Level: Low Risk Assessment and Plan Assessment: Subacute CVA with right-sided paresthesia, in a patient with history of TIA 2011, Diabetes mellitus, uncontrolled, hyperglycemic with blood sugars in the 400s on admission. Hemoglobin A1c 11.1 History of left-sided carotid occlusion ,100%, right-sided without significant stenosis, follows regularly every [address] Clint lopez, [facility]. Elevated troponin CAD with history of CABG Hypertension Hyperlipidemia Vascular disorder, neuropathy, stents Ongoing nicotine dependence Occasional THC use Plan: Continue on current medication regime ,monitoring and symptomatic treatment. Lipid panel/Brain MRI, echo pending. Maintained on statin, aspirin ,Brilenta. Evaluated by neurology with recommendations noted and appreciated. Cardiology, vascular surgery, speech therapy consults in place, recommendations pending. telehealth nurse educator consulted, hemoglobin A1c of 11.1. PT/OT. Smoking cessation reinforced. The impression and plan of care has been dictated as directed. : I performed a history and examination of this patient, discussed the same with the dictator. I agree with the dictator's note ,documented as a scribe. Any additional findings or plans will be noted.
[2020-08-08 12:50] VITALS: BMI 33.2
--- NOTE | 2020-08-08 15:24 | P.GSCN ---
History of Present Illness Consult date: 08/08/20 Reason for Consult: Carotid stenosis Requesting physician: Jae Phelps History of present illness: This is a 64-year-old female with a past medical history including diabetes mellitus, coronary artery disease with bypass, peripheral arterial disease with bilateral lower extremity stents in 2013, previous TIA 2011, and "carotid occlusion. She has also a current smoker, 1-2 packs a week. Patient states she follows with Dr. Bauman at [facility] and has been watching her carotid since 2011. She gets regular ultrasounds of her carotid arteries and legs every 6 months. The patient presented to the emergency room after experiencing waking up on Wednesday with right arm numbness which she attributed to sleeping wrong. Wednesday she woke up and stated that her right leg was numb and then yesterday the right side of her face was numb. She denies any other focal deficits or weakness in her extremities. She states she still has right arm and leg and face tingling. She was currently taking aspirin, Plavix, and Lipitor 80 mg. She denies any chest pain, shortness of breath, abdominal pain, nausea or vomiting. CT angiogram of head and neck shows left internal carotid artery obstruction at its origin and right ICA without significant plaque. CT of brain showed subcortical hypodensity within the left frontal lobe could be subacute or chronic. Consider MRI for additional evaluation. No definite acute changes identified. MRI can further evaluate brain. Carotid ultrasound shows complete versus near complete occlusion throughout the left internal carotid artery. 50- 69% stenosis of the right internal carotid artery by peak systolic velocity criteria. Review of Systems A 14 point review of systems was completed all pertinent positives and negatives as stated in the HPI. Past Medical History Past Medical History: Coronary Artery Disease (CAD), Diabetes Mellitus, Hyperlipidemia, Hypertension, Vascular Disorder Additional Past Medical History / Comment(s): neuropathy, stents in bilat legs History of Any Multi-Drug Resistant Organisms: None Reported Past Surgical History: Coronary Bypass/CABG, Heart Catheterization Additional Past Surgical History / Comment(s): triple bypass 2012 Past Anesthesia/Blood Transfusion Reactions: No Reported Reaction Past Psychological History: No Psychological Hx Reported Smoking Status: Current every day smoker Past Alcohol Use History: None Reported Past Drug Use History: Marijuana Medications and Allergies Home Medications Medication Instructions Recorded Confirmed Type Aspirin 81 mg PO DAILY 06/18/13 08/07/20 History Carvedilol [Coreg] 3.125 mg PO BID 06/18/13 08/07/20 History Clopidogrel Bisulfate [Plavix] 75 mg PO DAILY 06/18/13 08/07/20 History Atorvastatin [Lipitor] 80 mg PO HS 08/07/20 08/07/20 History Cholecalciferol (Vitamin D3) 125 mcg PO DAILY 08/07/20 08/07/20 History [Vitamin D3 (5000 Iu)] Citrical(Max +) 1 tab PO DAILY 08/07/20 08/07/20 History Gabapentin [Neurontin] 100 mg PO BID 08/07/20 08/07/20 History Insulin Glargine,Hum.rec.anlog 80 unit SQ HS 08/07/20 08/07/20 History [Basaglar Kwikpen U-100] Lisinopril [Prinivil] 10 mg PO DAILY 08/07/20 08/07/20 History Magnesium Oxide 400 mg PO DAILY 08/07/20 08/07/20 History Turmeric/Turmeric Root Extract 1 cap PO BID 08/07/20 08/07/20 History [Turmeric 450-50 mg Capsule] Allergies Allergy/AdvReac Type Severity Reaction Status Date / Time No Known Allergies Allergy Verified 08/07/20 15:27 Surgical - Exam Vital Signs Temp Pulse Resp BP Pulse Ox 98.3 F 82 20 187/85 95 08/07/20 12:30 08/07/20 12:30 08/07/20 12:30 08/07/20 12:30 08/07/20 12:30 General appearance: The patient is alert, oriented, in no acute distress. HET: Head is normocephalic and atraumatic. Pupils are equal and reactive. Orop harynx is clear without lesions. Neck: Supple without lymphadenopathy. Trachea midline. Heart: S1 S2. Regular rate and rhythm. Lungs: Clear to auscultation. Abdomen: Soft, nontender, nondistended with bowel sounds. No peritoneal signs. No palpable organomegaly or masses. Extremities: Normal skin color and turgor. No cyanosis, rash, ulceration, clubbing, or edema. Positive bilateral femoral, popliteal, posterior tibialis, and dorsalis pedis Doppler signals. Neurological: No focal deficits. Strength and sensation are grossly intact. Results - Labs 08/07/20 13:00 08/07/20 13:00 Abnormal Lab Results - Last 24 Hours (Table) 08/07/20 08/07/20 08/07/20 Range/Units 13:00 13:00 13:00 RBC 5.53 H (3.80-5.40) m/uL Hgb 16.9 H (11.4-16.0) gm/dL Hct 49.2 H (34.0-46.0) % APTT 20.2 L (22.0-30.0) sec Sodium 136 L (137-145) mmol/L BUN 23 H (7-17) mg/dL Glucose 439 H (74-99) mg/dL POC Glucose (mg/dL) (75-99) mg/dL Hemoglobin A1c (4.0-6.0) % Troponin I (0.000-0.034) ng/mL Triglycerides (0.0-149.0) mg/dL Cholesterol (0-200) mg/dL LDL Cholesterol, Calc (0.0-131.0) mg/dL VLDL Cholesterol, Calc (5.00-40.00) mg/dL HDL Cholesterol (40.0-60.0) mg/dL 08/07/20 08/07/20 08/07/20 Range/Units 13:00 13:00 16:53 RBC (3.80-5.40) m/uL Hgb (11.4-16.0) gm/dL Hct (34.0-46.0) % APTT (22.0-30.0) sec Sodium (137-145) mmol/L BUN (7-17) mg/dL Glucose (74-99) mg/dL POC Glucose (mg/dL) (75-99) mg/dL Hemoglobin A1c (4.0-6.0) % Troponin I 0.061 H* 0.074 H* (0.000-0.034) ng/mL Triglycerides 289.0 H (0.0-149.0) mg/dL Cholesterol 263 H (0-200) mg/dL LDL Cholesterol, Calc 171.2 H (0.0-131.0) mg/dL VLDL Cholesterol, Calc 57.80 H (5.00-40.00) mg/dL HDL Cholesterol 34.0 L (40.0-60.0) mg/dL 08/07/20 08/07/20 08/07/20 Range/Units 20:22 20:24 20:24 RBC (3.80-5.40) m/uL Hgb (11.4-16.0) gm/dL Hct (34.0-46.0) % APTT (22.0-30.0) sec Sodium (137-145) mmol/L BUN (7-17) mg/dL Glucose (74-99) mg/dL POC Glucose (mg/dL) 390 H (75-99) mg/dL Hemoglobin A1c 11.1 H (4.0-6.0) % Troponin I 0.057 H* (0.000-0.034) ng/mL Triglycerides (0.0-149.0) mg/dL Cholesterol (0-200) mg/dL LDL Cholesterol, Calc (0.0-131.0) mg/dL VLDL Cholesterol, Calc (5.00-40.00) mg/dL HDL Cholesterol (40.0-60.0) mg/dL 08/08/20 Range/Units 06:18 RBC (3.80-5.40) m/uL Hgb (11.4-16.0) gm/dL Hct (34.0-46.0) % APTT (22.0-30.0) sec Sodium (137-145) mmol/L BUN (7-17) mg/dL Glucose (74-99) mg/dL POC Glucose (mg/dL) 104 H (75-99) mg/dL Hemoglobin A1c (4.0-6.0) % Troponin I (0.000-0.034) ng/mL Triglycerides (0.0-149.0) mg/dL Cholesterol (0-200) mg/dL LDL Cholesterol, Calc (0.0-131.0) mg/dL VLDL Cholesterol, Calc (5.00-40.00) mg/dL HDL Cholesterol (40.0-60.0) mg/dL Diabetes panel 08/07/20 08/07/20 08/07/20 Range/Units 13:00 13:00 20:24 Sodium 136 L (137-145) mmol/L Potassium 4.5 (3.5-5.1) mmol/L Chloride 100 (98-107) mmol/L Carbon Dioxide 28 (22-30) mmol/L BUN 23 H (7-17) mg/dL Creatinine 0.69 (0.52-1.04) mg/dL Glucose 439 H (74-99) mg/dL Hemoglobin A1c 11.1 H (4.0-6.0) % Calcium 9.8 (8.4-10.2) mg/dL AST 26 (14-36) U/L ALT 33 (4-34) U/L Alkaline Phosphatase 103 (38-126) U/L Total Protein 7.6 (6.3-8.2) g/dL Albumin 4.5 (3.5-5.0) g/dL Triglycerides 289.0 H (0.0-149.0) mg/dL HDL Cholesterol 34.0 L (40.0-60.0) mg/dL Calcium panel 08/07/20 Range/Units 13:00 Calcium 9.8 (8.4-10.2) mg/dL Albumin 4.5 (3.5-5.0) g/dL Pituitary panel 08/07/20 Range/Units 13:00 Sodium 136 L (137-145) mmol/L Potassium 4.5 (3.5-5.1) mmol/L Chloride 100 (98-107) mmol/L Carbon Dioxide 28 (22-30) mmol/L BUN 23 H (7-17) mg/dL Creatinine 0.69 (0.52-1.04) mg/dL Glucose 439 H (74-99) mg/dL Calcium 9.8 (8.4-10.2) mg/dL Adrenal panel 08/07/20 Range/Units 13:00 Sodium 136 L (137-145) mmol/L Potassium 4.5 (3.5-5.1) mmol/L Chloride 100 (98-107) mmol/L Carbon Dioxide 28 (22-30) mmol/L BUN 23 H (7-17) mg/dL Creatinine 0.69 (0.52-1.04) mg/dL Glucose 439 H (74-99) mg/dL Calcium 9.8 (8.4-10.2) mg/dL Total Bilirubin 0.7 (0.2-1.3) mg/dL AST 26 (14-36) U/L ALT 33 (4-34) U/L Alkaline Phosphatase 103 (38-126) U/L Total Protein 7.6 (6.3-8.2) g/dL Albumin 4.5 (3.5-5.0) g/dL - Imaging Comments: CT brain: Subcortical hypodensity within the left frontal lobe could be subacute or chronic. Consider MRI for additional evaluation. No definite acute changes identified. MRI can further evaluate brain CTA head and neck: Artheromatous plaquing bilateral carotid bifurcations. There appears to be obstruction of the left internal carotid artery at its origin. Arthermatous plaquing without significant stenosis at the right internal carotid artery origin. Normal [place]. Carotid ultrasound: Complete versus near complete occlusion throughout the left internal carotid artery. 50-69% stenosis of the right internal carotid artery by peak systolic velocity Assessment and Plan Assessment: 1. Right upper and lower extremity numbness 2. Right facial numbness 3. Left ICA occlusion, known since 2011 4. History TIA 5. History coronary artery disease status post CABG 6. Peripheral arterial disease status post stenting 2013 7. Diabetes mellitus 8. Current tobacco use Plan: 1. Recommend smoking cessation 2. Await MRI results 3. Cardiology following 4. Neurology following 5. Neurology changed Plavix to Brilinta, continue statin 6. Further recommendations to follow Thank you for this consultation and allowing us to take part in the plan of care of your patient The impression and plan of care has been dictated as directed. Dr. Davies I performed a history and examination of this patient, discussed the same with the dictator. I agree with the dictator's note ,documented as a scribe. Any additional findings or plans will be noted.
[2020-08-08 16:53] LABS: Glucose,Whole Blood 186 mg/dL (75-99)
[2020-08-08 20:15] LABS: Glucose,Whole Blood 238 mg/dL (75-99)
[2020-08-08] MEDS: INSULIN DETEMIR (LEVEMIR) 100 UNIT/ML SYR SQ SCH (20:21)
[2020-08-08] MEDS: ATORVASTATIN 80 MG TAB PO SCH (20:22)
[2020-08-08] MEDS ORDERED: ATORVASTATIN 80 MG TAB PO SCH (21:00)
[2020-08-09 05:46] LABS: Glucose,Whole Blood 100 mg/dL (75-99)
[2020-08-09] MEDS: SODIUM CHLORIDE 0.9% 1,000 ML IV SCH ×2 (05:46→17:18)
[2020-08-09] MEDS: INSULIN ASPART (NovoLOG) 100 UNIT/ML VIAL SQ SCH ×4 (05:47→20:48)
[2020-08-09] MEDS: carvediloL 3.125 MG TAB PO SCH ×2 (06:44→17:19)
[2020-08-09] MEDS: GABAPENTIN 100 MG CAP PO SCH ×2 (09:08→21:00)
[2020-08-09] MEDS: ASPIRIN 81 MG PO SCH (09:08)
[2020-08-09] MEDS: lisinopriL 20 MG TAB PO SCH (09:08)
[2020-08-09] MEDS: PANTOPRAZOLE 40 MG/10 ML VIAL IVP SCH (09:08)
[2020-08-09] MEDS: MAGNESIUM OXIDE 400 MG TAB PO SCH (09:08)
[2020-08-09] MEDS: CHOLECALCIFEROL 25 MCG (1000 IU) TABLET PO SCH (09:08)
[2020-08-09] MEDS: TICAGRELOR 90 MG TAB PO SCH ×2 (09:08→21:00)
--- NOTE | 2020-08-09 10:19 | P.PN ---
Subjective Progress Note Date: 08/09/20 Principal diagnosis: Left carotid occlusion Patient is seen and examined sitting up at the bedside. She is without any acute changes through the night. States she still has numbness to the right side of her face, right upper extremity, and right lower extremity. No focal deficits. She's been up and ambulating with physical therapy today without any difficulty. Denies any weakness. MRI ordered, not completed. Neurology following. Objective - Vital Signs Vital signs: Vital Signs Temp 97.9 F 08/09/20 08:16 Pulse 72 08/09/20 08:16 Resp 20 08/09/20 08:16 BP 110/61 08/09/20 08:16 Pulse Ox 97 08/09/20 08:16 Intake & Output 08/08/20 08/09/20 08/09/20 18:59 06:59 18:59 Intake Total 420 120 Balance 420 120 Weight 87.8 kg 88.5 kg Intake: Oral 420 120 Other: # Voids 1 2 - Exam General appearance: The patient is alert, oriented, in no acute distress. HET: Head is normocephalic and atraumatic. Pupils are equal and reactive. Oropharynx is clear without lesions. Neck: Supple without lymphadenopathy. Trachea midline. Heart: S1 S2. Regular rate and rhythm. Lungs: Clear to auscultation. Abdomen: Soft, nontender, nondistended. Extremities: Normal skin color and turgor. No cyanosis, rash, ulceration, clubbing, or edema. Pulses +2 bilaterally. Good capillary refill and lower extremities and warm to touch. Neurological: No focal deficits. Strength and sensation are grossly intact. - Labs CBC & Chem 7: 08/07/20 13:00 08/07/20 13:00 Labs: Abnormal Lab Results - Last 24 Hours (Table) 08/08/20 08/08/20 08/08/20 Range/Units 11:59 16:52 20:07 POC Glucose (mg/dL) 134 H 186 H 238 H (75-99) mg/dL 08/09/20 Range/Units 05:38 POC Glucose (mg/dL) 100 H (75-99) mg/dL Assessment and Plan Assessment: 1. Right upper and lower extremity numbness 2. Right facial numbness 3. Left ICA occlusion, known since 2011 4. History TIA 5. History coronary artery disease status post CABG 6. Peripheral arterial disease status post stenting 2013 7. Diabetes mellitus 8. Current tobacco use Plan: 1. Recommend smoking cessation 2. Await MRI results 3. Cardiology following 4. Neurology following 5. Neurology changed Plavix to Brilinta, continue statin 6. Patient may be discharged home from a vascular surgical standpoint. Patient can follow-up in 1-2 weeks. Thank you for this consultation and allowing us to take part in the plan of care of your patient The impression and plan of care has been dictated as directed. Dr. Davies I performed a history and examination of this patient, discussed the same with the dictator. I agree with the dictator's note ,documented as a scribe. Any additional findings or plans will be noted.
--- NOTE | 2020-08-09 11:46 | PN ---
PROGRESS NOTE HISTORY: Mrs. Burch suffered from what seems to be a TIA type picture. However, she is feeling better. Has no chest pain or shortness of breath. Her neurological symptoms have improved. Tingling has improved. PHYSICAL EXAM: Vitals are stable. No JVD. S1, S2 heard normally short systolic murmur noted lungs revealed decent air entry abdomen looks exam unchanged. IMPRESSION: 1. CAD with prior bypass surgery. 2. CVA with a known left internal carotid occlusion, has a right-sided symptoms which have improved. 3. No clear-cut evidence to suggest any acute new stroke. RECOMMENDATIONS: I am recommending an event monitor to rule out any atrial fibrillation, although patient does not show any such evidence. Upon discharge, she should have an event monitor and follow up with her [facility] in the [place] area. MMAMBROSE / ALEXANDRAN: [id number] /
--- NOTE | 2020-08-09 12:11 | P.PN ---
Subjective Progress Note Date: 08/09/20 This is a 64-year-old female with past medical history of TIA 2011 ,CAD, history of CABG, diabetes mellitus, hyperlipidemia, hypertension, left carotid occlusion ,vascular disorder/neuropathy with stents of bilateral legs, ongoing nicotine dependence presented to the ER with complaints of worsening right-sided numbness/tingling for the last 3 days. Patient reports 3 days ago, initially developed right arm numbness, followed by right leg numbness the following day, with further progression yesterday into the right side of her face with no facial droop . Reports did not lose motor strength. Denied any focal deficits, lightheadedness or dizziness. Denies headache. Reports no difficulties with speech or swallowing.Denies nausea vomiting or diarrhea. Denies abdominal pain. Denies chest pain, palpitations or shortness of breath. Troponin 0.061, 0.074, 0.057. EKG reported sinus rhythm, possible left atrial enlargement septal infarct, age undetermined.Brain CT reported subcortical hypodensity within the left frontal lobe could be subacute or chronic, no definite acute changes identified, MRI recommended. CT angiography of the head and neck reported as atheromatous plaque in bilateral carotid bifurcation. There appears to be obstruction of the left internal carotid artery at its origin. Atheromatous plaquing without significant stenosis at the right internal carotid artery origin. Normal [place]. Chest x-ray reported no acute pulmonary process. Afebrile, normal WBC. Hemoglobin 16.9, platelets 272, INR 1. Sodium 136, potassium 4.5, BUN 23, creatinine 0.69. Glucose 439 on admission with A1c of 11.1. Lipid panel pending. 08/09/2020 sitting up in chair, eating breakfast, using right hand without difficulty. Reports ongoing tingling of right side, head to toe. She ambulated with PT, tolerated exertion well. Denies lightheadedness, dizziness or focal deficits. Neurology evaluation in progress. MRI pending; reports sought regarding vascular stents of lower extremities. Denies chest pain, palpitations or shortness of breath. Echo reported normal LV function, EF 55-60%, basal anterior septal LV wall motion hypokinetic. Objective - Vital Signs Vital signs: Vital Signs Temp 97.9 F 08/09/20 08:16 Pulse 72 08/09/20 08:16 Resp 20 08/09/20 08:16 BP 110/61 06/25/21 08:16 Pulse Ox 97 08/09/20 08:16 Intake & Output 08/08/20 08/09/20 08/09/20 18:59 06:59 18:59 Intake Total 420 120 Balance 420 120 Weight 87.8 kg 88.5 kg Intake: Oral 420 120 Other: # Voids 1 2 - Exam PHYSICAL EXAM: VITAL SIGNS: [As above] GENERAL: Sitting up in chair, no acute distress HEENT: Conjunctivae normal. eyes normal. NECK: No JVD. No carotid bruits bilaterally. CARDIOVASCULAR: S1, S2 regular. No murmur RESPIRATION: Breath sounds diminished in the bases. ABDOMEN: Soft, nontender . No guarding. no masses palpable. Positive bowel sounds. LEGS: No edema. no swelling PSYCHIATRY: Alert and oriented X3, mood and affect normal. NERVOUS SYSTEM: Cranial N 2-12 grossly normal. Moves all 4 limbs. No focal deficits. Strength grossly intact. (Patient reporting numbness of right-side, head to toe) Skin: Warm and dry, no rash - Labs CBC & Chem 7: 08/07/20 13:00 08/07/20 13:00 Labs: Abnormal Lab Results - Last 24 Hours (Table) 08/08/20 08/08/20 08/08/20 Range/Units 11:59 16:52 20:07 POC Glucose (mg/dL) 134 H 186 H 238 H (75-99) mg/dL 08/09/20 Range/Units 05:38 POC Glucose (mg/dL) 100 H (75-99) mg/dL Assessment and Plan Assessment: Subacute CVA with right-sided paresthesia, in a patient with history of TIA 2011, Diabetes mellitus, uncontrolled, hyperglycemic with blood sugars in the 400s on admission. Hemoglobin A1c 11.1 History of left-sided carotid occlusion ,100%, right-sided without significant stenosis, follows regularly every [address] Clint lopez, [facility] Munroe. Elevated troponin CAD with history of CABG Hypertension Hyperlipidemia Vascular disorder, neuropathy, stents Ongoing nicotine dependence Occasional THC use Plan: Continue on current medication regime ,monitoring and symptomatic treatment. Continues on statin, aspirin ,Brilenta. Neurology following , workup in progress .MRI pending. PT/OT. Smoking cessation reinforced. At discharge patient will also require further diabetic teaching at PCPs office. Event monitor at discharge as per cardiology. Discharge planning in progress for tomorrow. The impression and plan of care has been dictated as directed. : I performed a history and examination of this patient, discussed the same with the dictator. I agree with the dictator's note ,documented as a scribe. Any additional findings or plans will be noted.
[2020-08-09 12:12] LABS: Glucose,Whole Blood 249 mg/dL (75-99)
--- NOTE | 2020-08-09 14:28 | P.PN ---
Subjective Progress Note Date: 08/09/20 The patient is seen at bedside and feels about the same today compared to yesterday. She denies of any weakness, visual disturbance, slurring speech. She continues to have numbness over right face and arm. Objective - Vital Signs Vital signs: Vital Signs Temp 97.9 F 08/09/20 08:16 Pulse 66 08/09/20 12:00 Resp 16 08/09/20 12:00 BP 128/72 08/09/20 12:00 Pulse Ox 96 08/09/20 12:00 Intake & Output 08/08/20 08/09/20 08/09/20 18:59 06:59 18:59 Intake Total 420 120 Balance 420 120 Weight 87.8 kg 88.5 kg Intake: Oral 420 120 Other: # Voids 1 2 - Exam GENERAL: The patient is lying in bed and is not in acute distress. NEUROLOGICAL: Higher mental function: The patient is awake, alert, oriented to self, place and time. Patient is following commands. No aphasia and no neglect. Cranial nerves: The pupils are round, equal and reactive to light and accommodation. Visual melvin are full to confrontation throughout. Extraocular movement is intact no nystagmus is noted. Facial sensation is normal to touch throughout. The facial strength is right nasolabial flattening (she stated old). Hearing is normal bilaterally to hand rub. Tongue is midline and moved [id number] without any difficulty. No dysarthria is noted. Shoulder shrug is normal bilaterally. Motor: Gait is deferred. The strength is 5 over 5 throughout. Normal tone and bulk. Cerebellum: Normal finger to nose heel to phipps bilaterally. Sensation: Sensation is normal to touch throughout but feels her entire right side is tingling. Reflexes (right/left): 2+ Plantars are downgoing bilaterally. WORK-UP: * CT of the head is reported as subcortical hypodensity within the left frontal lobe could be subacute or chronic. Consider MRI for additional evaluation. No definite acute changes identified. MRI can further evaluate the the brain. * CT angiography of the head and neck was reported as atheromatous plaque in bilateral carotid bifurcation. There appears to be obstruction of the left internal carotid artery at its origin. Atheromatous plaquing without significant stenosis at the right internal carotid artery origin. Normal [place] of [place]. * The hemoglobin A1c is 11.1 which patient's diabetes was uncontrolled. * 2-D echo was reported as mild concentric left ventricle atrophy. Ejection fraction of 55-60%. Basilar anterior septal left ventricle wall motion is hypokinetic. Normal left atrial size by volume. * Carotid duplex was reported as completely versus near complete occlusion throughout the left internal carotid artery. 50-69% stenosis of the right internal carotid artery by peak systolic velocity criteria. * Lipid panel: Triglyceride is 289, cholesterol 263, LDLs 171, HDL 34. * TSH is 1.570 which is within normal limits. - Labs CBC & Chem 7: 08/07/20 13:00 08/07/20 13:00 Labs: Abnormal Lab Results - Last 24 Hours (Table) 08/08/20 08/08/20 08/09/20 Range/Units 16:52 20:07 05:38 POC Glucose (mg/dL) 186 H 238 H 100 H (75-99) mg/dL 08/09/20 Range/Units 12:10 POC Glucose (mg/dL) 249 H (75-99) mg/dL Assessment and Plan Assessment: * Entire right sided paresthesia, Seems subacute to chronic ischemic stroke (over the subcortical left frontal). Likely etiology is embolic and seems artery to artery. * Left internal carotid artery occlusion (since 2011) (and is confirmed by our CTA and per carotid duplex it is reported as occlusion or near occlusion) * Right ICA stenosis (50-69% per ultrasound and is she known to have stenosis). * Dyslipidemia * Elevated troponin * History of transient ischemic attack 2011 * Uncontrolled diabetes mellitus (with HbA1c 11.1) * Coronary artery disease status post CABG * Nicotine dependence Plan: * Continue ASA 81mg daily (home dose) and Brlinita 90mg 1 tab bid (was on Plavix as home dose). Continue Lipitor 80mg qhs for secondary stroke prophylaxis (LDL goal in stroke is <70). * Pending MRI of the brain (pending clearance since she had stent in past). Patient stated that she does not want to wait for MRI. MRI will not foreign exchange position clerk. * PT, OT and CERTIFIED DRIVER EXAMINER are consulted * On cardiac monitoring and on every 4 hours neuro checks. On cardiac telemonitoring no Atrial fibrillation or flutter is reported. * Vascular surgery team is on board * Cardiology is consulted for elevated troponin * We'll defer the rest of the medical management to primary team. * The patient is counseled on smoking cessation. * Upon discharge, the patient needs to follow-up with a neurologist as outpatient within 1-2 weeks. If we cannot get MRI then she clear from neurological stand point. Notified nurse to notify vascular surgery team as well. The plan is discussed with the patient and her nurse. Jae Phelps M.D. Neuro-hospitalist Time with Patient: Less than 30
[2020-08-09 16:44] LABS: Glucose,Whole Blood 235 mg/dL (75-99)
[2020-08-09 20:20] LABS: Glucose,Whole Blood 271 mg/dL (75-99)
[2020-08-09] MEDS: ATORVASTATIN 80 MG TAB PO SCH (21:00)
[2020-08-09] MEDS: INSULIN DETEMIR (LEVEMIR) 100 UNIT/ML SYR SQ SCH (21:20)
[2020-08-10] MEDS: SODIUM CHLORIDE 0.9% 1,000 ML IV SCH (04:38)
[2020-08-10] MEDS: carvediloL 3.125 MG TAB PO SCH ×2 (06:10→17:20)
[2020-08-10 06:30] LABS: Glucose,Whole Blood 205 mg/dL (75-99)
[2020-08-10] MEDS: INSULIN ASPART (NovoLOG) 100 UNIT/ML VIAL SQ SCH ×3 (06:48→17:20)
[2020-08-10] MEDS ORDERED: PANTOPRAZOLE 40 MG TABLET PO SCH (07:30)
[2020-08-10] MEDS: lisinopriL 20 MG TAB PO SCH (10:07)
[2020-08-10] MEDS: CHOLECALCIFEROL 25 MCG (1000 IU) TABLET PO SCH (10:07)
[2020-08-10] MEDS: TICAGRELOR 90 MG TAB PO SCH (10:07)
[2020-08-10] MEDS: MAGNESIUM OXIDE 400 MG TAB PO SCH (10:07)
[2020-08-10] MEDS: GABAPENTIN 100 MG CAP PO SCH (10:07)
[2020-08-10] MEDS: ASPIRIN 81 MG PO SCH (10:07)
--- NOTE | 2020-08-10 10:23 | P.PN ---
Subjective Progress Note Date: 08/10/20 Patient seen at bedside and she stated that she is about the same today compared to her initial presentation. She continues to have some numbness over the face on the right side as well as the right upper extremity but denies any worsening of her condition, difficulty getting her words out, difficult to swallowing, any weakness. She got clearance of getting MRI and and that is pending to be done today. Objective - Vital Signs Vital signs: Vital Signs Temp 98.1 F 08/10/20 04:00 Pulse 72 08/10/20 04:00 Resp 17 08/10/20 04:00 BP 150/58 08/10/20 04:00 Pulse Ox 96 08/10/20 04:00 Intake & Output 08/09/20 08/10/20 08/10/20 18:59 06:59 18:59 Intake Total 840 120 Balance 840 120 Weight 89.1 kg Intake: Oral 840 120 Other: # Voids 2 2 1 - Exam GENERAL: The patient is lying in bed and is not in acute distress. NEUROLOGICAL: Higher mental function: The patient is awake, alert, oriented to self, place and time. Patient is following commands. No aphasia and no neglect. Cranial nerves: The pupils are round, equal and reactive to light and accommodation. Visual melvin are full to confrontation throughout. Extraocular movement is intact no nystagmus is noted. Facial sensation is normal to touch throughout. The facial strength is right nasolabial flattening (she stated old). Hearing is normal bilaterally to hand rub. Tongue is midline and moved [id number] without any difficulty. No dysarthria is noted. Shoulder shrug is normal bilaterally. Motor: Gait is deferred. The strength is 5 over 5 throughout. Normal tone and bulk. Cerebellum: Normal finger to nose heel to phipps bilaterally. Sensation: Sensation is normal to touch throughout but feels her entire right side is tingling. Reflexes (right/left): 2+ Plantars are downgoing bilaterally. WORK-UP: * CT of the head is reported as subcortical hypodensity within the left frontal lobe could be subacute or chronic. Consider MRI for additional evaluation. No definite acute changes identified. MRI can further evaluate the the brain. * CT angiography of the head and neck was reported as atheromatous plaque in bilateral carotid bifurcation. There appears to be obstruction of the left internal carotid artery at its origin. Atheromatous plaquing without significant stenosis at the right internal carotid artery origin. Normal [place]. * The hemoglobin A1c is 11.1 which patient's diabetes was uncontrolled. * 2-D echo was reported as mild concentric left ventricle atrophy. Ejection fraction of 55-60%. Basilar anterior septal left ventricle wall motion is hypokinetic. Normal left atrial size by volume. * Carotid duplex was reported as completely versus near complete occlusion throughout the left internal carotid artery. 50-69% stenosis of the right internal carotid artery by peak systolic velocity criteria. * Lipid panel: Triglyceride is 289, cholesterol 263, LDLs 171, HDL 34. * TSH is 1.570 which is within normal limits. * MRI of the brain is reported as multiple lesion probably related to microvascular ischemia. There is evidence of an acute infarct in the left posterior thalamus. I personally reviewed the MRI and I do not feel it acute but rather it subacute since there are FLAIR changes seen and second she had MRI couples days after her symptoms which would go with subacute. - Labs CBC & Chem 7: 08/07/20 13:00 08/07/20 13:00 Labs: Abnormal Lab Results - Last 24 Hours (Table) 08/09/20 08/09/20 08/09/20 Range/Units 12:10 16:42 20:18 POC Glucose (mg/dL) 249 H 235 H 271 H (75-99) mg/dL 08/10/20 Range/Units 05:47 POC Glucose (mg/dL) 205 H (75-99) mg/dL Assessment and Plan Assessment: * Subacute stroke over the left thalamus (with symptoms of right sided paresthesia). Seem likely due small vessel disease. (MRI is reported as acute but I felt it is subacute. Has FLAIR changes on MRI). * Left internal carotid artery occlusion (since 2011) (and is confirmed by our CTA and per carotid duplex it is reported as occlusion or near occlusion) * Right ICA stenosis (50-69% per ultrasound and is she known to have stenosis). * Dyslipidemia * Elevated troponin * History of transient ischemic attack 2011 * Uncontrolled diabetes mellitus (with HbA1c 11.1) * Coronary artery disease status post CABG * Nicotine dependence Plan: * Continue ASA 81mg daily (home dose) and Brlinita 90mg 1 tab bid (was on Plavix as home dose). Continue Lipitor 80mg qhs for secondary stroke prophylaxis (LDL goal in stroke is <70). * PT, OT and GLASSWARE SELECTOR are consulted * On cardiac monitoring and on every 4 hours neuro checks. On cardiac telemonitoring no Atrial fibrillation or flutter is reported. * Vascular surgery team is on board * Cardiology is on board and will place an event monitor and will follow-up with cardiology team. * We'll defer the rest of the medical management to primary team. * The patient is counseled on smoking cessation. * Upon discharge, the patient needs to follow-up with a neurologist as outpatient within 1-2 weeks. The plan is discussed with the patient and her nurse. There is no further work-up. Jae Phelps M.D. Neuro-hospitalist Time with Patient: Less than 30
[2020-08-10 10:57] VITALS: RESP 18; TEMP 98.4
[2020-08-10 11:59] LABS: Glucose,Whole Blood 267 mg/dL (75-99)
--- NOTE | 2020-08-10 14:30 | MR ---
EXAMINATION TYPE: MR brain wo con DATE OF EXAM: 08/10/2020 COMPARISON: None HISTORY: Numbness of left side of face, left arm, and left leg. Multiplanar multiecho imaging of the brain was performed with no contrast. There is mild cerebral atrophy. There is no mass effect nor midline shift. There is no sign of intrac ranial hemorrhage. Diffusion images show 7 mm area of increased signal in the posterior left thalamus consistent with an acute infarct. There is a 10 mm focus of increased signal on the T2 and FLAIR images in the goodwin-white matter juncti on left posterior frontal lobe. There is also minimal gyriform increased signal on the FLAIR images i n the left posterior frontal lobe cortex. There is similar 5 mm focus in the right temporal lobe. The re are a few small areas of increased signal up to 3 mm in the right posterior temporal lobe white ma tter adjacent to the lateral ventricle. There is rounded 5 mm focus increased signal at the goodwin-whit e matter junction left parietal lobe. The corpus callosum is intact. Sella turcica is intact. Brainstem shows tiny areas of increased signa l in the carmelita measuring 1 to 2 mm. IMPRESSION: Multiple lesions probably related to microvascular ischemia. There is evidence of an acute infarct i n the left posterior thalamus.
[2020-08-10 16:45] LABS: Glucose,Whole Blood 314 mg/dL (75-99)
[2020-08-10 17:28] VITALS: BP 178/77; PULSE 75
--- NOTE | 2020-08-10 20:05 | PN ---
PROGRESS NOTE DATE OF SERVICE: 08/10/2020. HISTORY: Mrs. Burch is doing well. She is going to have an MRI today. She had probably a very a recurrent TIA or a CVA, but neurologically she is doing much better. MRI today. Possible discharge soon. 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 She has history of CAD prior bypass surgery. PHYSICAL EXAM: Vital signs stable. No JVD. S1, S2 heard normally. Short systolic murmur. Clear lungs. Abdomen and lower extremity exam unchanged. MMODL / IJN: [id number] /
--- NOTE | 2020-08-17 01:16 | P.DS ---
Providers Date of admission: 08/07/20 15:16 Expected date of discharge: 08/10/20 Attending physician: Amish Verma Consults: 08/07/20 15:16 Consult Physician Routine Consulting Provider: Jae Phelps Consult Reason/Comments: TIA versus CVA Do you want consulting provider notified?: Yes Consult Physician Routine Consulting Provider: Katie Huff Consult Reason/Comments: Elevated troponin Do you want consulting provider notified?: Yes 08/08/20 08:18 Consult Physician Urgent Consulting Provider: Maine Davies Consult Reason/Comments: carotid stenosis Do you want consulting provider notified?: Yes Primary care physician: Amish Verma [facility] Course: 64-year-old female with past medical history of TIA 2011 ,CAD, history of CABG, diabetes mellitus, hyperlipidemia, hypertension, left carotid occlusion ,vascular disorder/neuropathy with stents of bilateral legs, ongoing nicotine dependence presented to the ER with complaints of worsening right-sided numbness/tingling for the last 3 days. Patient reports 3 days ago, initially developed right arm numbness, followed by right leg numbness the following day, with further progression yesterday into the right side of her face with no facial droop . Reports did not lose motor strength. Denied any focal deficits, lightheadedness or dizziness. Denies headache. Reports no difficulties with speech or swallowing.Denies nausea vomiting or diarrhea. Denies abdominal pain. Denies chest pain, palpitations or shortness of breath. Troponin 0.061, 0.074, 0.057. EKG reported sinus rhythm, possible left atrial enlargement septal infarct, age undetermined.Brain CT reported subcortical hypodensity within the left frontal lobe could be subacute or chronic, no definite acute changes identified, MRI recommended. CT angiography of the head and neck reported as atheromatous plaque in bilateral carotid bifurcation. There appears to be obstruction of the left internal carotid artery at its origin. Atheromatous plaquing without significant stenosis at the right internal carotid artery origin. Normal [place]. Chest x-ray reported no acute pulmonary process. Afebrile, normal WBC. Hemoglobin 16.9, platelets 272, INR 1. Sodium 136, potassium 4.5, BUN 23, creatinine 0.69. Glucose 439 on admission with A1c of 11.1. Lipid panel pending. * Subacute stroke over the left thalamus (with symptoms of right sided paresthesia). Seem likely due small vessel disease. (MRI is reported as acute but I felt it is subacute. Has FLAIR changes on MRI). * Left internal carotid artery occlusion (since 2011) (and is confirmed by our CTA and per carotid duplex it is reported as occlusion or near occlusion) * Right ICA stenosis (50-69% per ultrasound and is she known to have stenosis). * Dyslipidemia * Elevated troponin * History of transient ischemic attack 2011 * Uncontrolled diabetes mellitus (with HbA1c 11.1) * Coronary artery disease status post CABG * Nicotine dependence Plan: * Continue ASA 81mg daily (home dose) and Brlinita 90mg 1 tab bid (was on Plavix as home dose). Continue Lipitor 80mg qhs for secondary stroke prophylaxis (LDL goal in stroke is <70). * PT, OT and CLIENT TECHNOLOGIES ANALYST are consulted * On cardiac monitoring and on every 4 hours neuro checks. On cardiac telemonitoring no Atrial fibrillation or flutter is reported. * Vascular surgery team is on board * Cardiology is on board and will place an event monitor and will follow-up with cardiology team. * We'll defer the rest of the medical management to primary team. * The patient is counseled on smoking cessation. * Upon discharge, the patient needs to follow-up with a neurologist as outpatient within 1-2 weeks. Patient Condition at Discharge: Stable Plan - Discharge Summary Discharge Rx Participant: No New Discharge Prescriptions: No Action Clopidogrel Bisulfate [Plavix] 75 mg PO DAILY Carvedilol [Coreg] 3.125 mg PO BID Aspirin 81 mg PO DAILY Citrical(Max +) 1 tab PO DAILY Lisinopril [Prinivil] 10 mg PO DAILY Atorvastatin [Lipitor] 80 mg PO HS Cholecalciferol (Vitamin D3) [Vitamin D3 (5000 Iu)] 125 mcg PO DAILY Gabapentin [Neurontin] 100 mg PO BID Insulin Glargine,Hum.rec.anlog [Basaglar Kwikpen U-100] 80 unit SQ HS Magnesium Oxide 400 mg PO DAILY Turmeric/Turmeric Root Extract [Turmeric 450-50 mg Capsule] 1 cap PO BID Discharge Medication List Aspirin 81 mg PO DAILY 06/18/13 [History] Carvedilol [Coreg] 3.125 mg PO BID 06/18/13 [History] Clopidogrel Bisulfate [Plavix] 75 mg PO DAILY 06/18/13 [History] Atorvastatin [Lipitor] 80 mg PO HS 06/23/21 [History] Cholecalciferol (Vitamin D3) [Vitamin D3 (5000 Iu)] 125 mcg PO DAILY 08/07/20 [History] Citrical(Max +) 1 tab PO DAILY 08/07/20 [History] Gabapentin [Neurontin] 100 mg PO BID 08/07/20 [History] Insulin Glargine,Hum.rec.anlog [Basaglar Kwikpen U-100] 80 unit SQ HS 08/07/20 [History] Lisinopril [Prinivil] 10 mg PO DAILY 08/07/20 [History] Magnesium Oxide 400 mg PO DAILY 08/07/20 [History] Turmeric/Turmeric Root Extract [Turmeric 450-50 mg Capsule] 1 cap PO BID 08/07/20 [History] Follow up Appointment(s)/Referral(s): Amish Verma DO [Primary Care Provider] - 1-2 days (Please call office to make a follow-up appointment when open) Patient Instructions/Handouts: Transient Ischemic Attack (DC) Activity/Diet/Wound Care/Special Instructions: Patient will need a script for outpatient physical therapy from Dr. Verma. Please follow-up with a neurologist Discharge Disposition: HOME SELF-CARE
== END 2020-08-10 17:46 | disposition home or self-care (01) | DRG 66 ==
LOC: EC 12:29 → 3SCARD 15:16
PROVIDERS: ADMIT Family Medicine; ATTEND Family Medicine
DX: I63.40 Cerebral infarction due to embolism of unspecified cerebral artery (principal); F17.210 Nicotine dependence, cigarettes, uncomplicated; Z71.6 Tobacco abuse counseling; R77.8 Other specified abnormalities of plasma proteins; E11.51 Type 2 diabetes mellitus with diabetic peripheral angiopathy without gangrene; E11.65 Type 2 diabetes mellitus with hyperglycemia; E11.40 Type 2 diabetes mellitus with diabetic neuropathy, unspecified; E78.5 Hyperlipidemia, unspecified; I10 Essential (primary) hypertension; I25.10 Atherosclerotic heart disease of native coronary artery without angina pectoris; I25.2 Old myocardial infarction; I25.5 Ischemic cardiomyopathy; I65.22 Occlusion and stenosis of left carotid artery; Z79.02 Long term (current) use of antithrombotics/antiplatelets; Z79.4 Long term (current) use of insulin; Z79.82 Long term (current) use of aspirin; Z79.899 Other long term (current) drug therapy; Z82.3 Family history of stroke; Z86.73 Personal history of transient ischemic attack (TIA), and cerebral infarction without residual deficits; Z95.1 Presence of aortocoronary bypass graft; Z95.820 Peripheral vascular angioplasty status with implants and grafts; Z20.822 Contact with and (suspected) exposure to COVID-19
CPT/HCPCS: 36415; 70450; 70496; 70498; 70551; 71046; 80053; 80061; 82550; 83036; 84443; 84484; 85025; 85610; 85730; 87635; 93005; 93270; 93306; 93880; 99285

== ENCOUNTER 2021-07-18 20:23 | Emergency (ER) | payer MEDICARE, BC ==
[2021-07-18 20:30] VITALS: BP 117/70; PULSE 61; RESP 20; TEMP 98.6
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
[2021-07-18 20:43] LABS: Glucose,Whole Blood 205 mg/dL (75-99)
[2021-07-18] MEDS ORDERED: ONDANSETRON 4 MG/2 ML VIAL IVP STA (20:58)
--- NOTE | 2021-07-18 20:59 | XR ---
EXAMINATION TYPE: XR pelvis AP view DATE OF EXAM: 07/18/2021 8:41 PM INDICATION: Patient age:Female; 65 years old; Reason for study: Trauma; COMPARISON: None TECHNIQUE: The pelvis was examined in a single projection. FINDINGS: Comminuted bilateral proximal femur fractures through the intertrochanteric regions. There are multiple fragments including lesser trochanter fragment bilaterally. No definitive intra-articula r extension. There is atherosclerosis throughout the arterial vasculature. Nonobstructive bowel gas p attern. Multilevel disc degeneration changes throughout the spine. IMPRESSION: Comminuted proximal femur fractures through the intertrochanteric regions.
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
[2021-07-18] MEDS ORDERED: MORPHINE SULFATE 4 MG/ML SYRINGE IV STA ×2 (21:05→22:37)
[2021-07-18 21:18] LABS: Basophils # (A) 0.1 k/uL (0-0.2); Basophils % (A) 0 %; Eosinophils # (A) 0.1 k/uL (0-0.7); Eosinophils % (A) 1 %; HCT 44.4 % (34.0-46.0); HGB 14.3 gm/dL (11.4-16.0); Lymphocytes # (A) 3.3 k/uL (1.0-4.8); Lymphocytes % (A) 26 %; MCH 30.5 pg (25.0-35.0); MCHC 32.3 g/dL (31.0-37.0); MCV 94.3 fL (80.0-100.0); Mean Platelet Volume 7.9; Monocytes # (A) 0.7 k/uL (0-1.0); Monocytes % (A) 6 %; Neutrophils # (A) 8.2 k/uL (1.3-7.7); Neutrophils % (A) 65 %; Platelet Count 257 k/uL (150-450); RBC 4.71 m/uL (3.80-5.40); RDW 14.1 % (11.5-15.5); WBC 12.6 k/uL (3.8-10.6)
[2021-07-18 21:24] LABS: ALT 18 U/L (4-34); AST 26 U/L (14-36); African American GFR (CKD) 74 (>60 ml/min/1.73 sqM); Albumin 4.2 g/dL (3.5-5.0); Alcohol <10 mg/dL; Alkaline Phosphatase 67 U/L (38-126); Anion Gap 4 mmol/L; Blood Urea Nitrogen 25 mg/dL (7-17); Calcium 9.3 mg/dL (8.4-10.2); Carbon Dioxide 29 mmol/L (22-30); Chloride 103 mmol/L (98-107); Glucose 239 mg/dL (74-99); Non-African American GFR(CKD) 64 (>60 ml/min/1.73 sqM); Potassium 4.3 mmol/L (3.5-5.1); Sodium 136 mmol/L (137-145); Total Bilirubin 0.7 mg/dL (0.2-1.3)
[2021-07-18 21:33] LABS: Partial Thromboplastin Time 21.8 sec (22.0-30.0)
[2021-07-18] MEDS ORDERED: SODIUM CHLORIDE 0.9% 1,000 ML IV STA (21:43)
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
[2021-07-18] MEDS ORDERED: ONDANSETRON 4 MG TAB PO PRN (22:28)
[2021-07-18] MEDS ORDERED: HYDROmorphone 0.5 MG/0.5 ML SYRINGE IVP STA (23:00)
[2021-07-18 23:24] LABS: Appearance,Urine Clear (Clear); Bilirubin,Urine Negative (Negative); Blood,Urine Negative (Negative); Color,Urine Yellow; Glucose,Urine (UA) 4+ (Negative); Ketones,Urine Negative (Negative); Leukocyte Esterase,Urine Negative (Negative); Nitrite,Urine Negative (Negative); PH, Urine 5.5 (5.0-8.0); Protein,Urine Trace (Negative); Urobilinogen,Urine <2.0 mg/dL (<2.0)
[2021-07-18 23:38] LABS: Amphetamine Screen,Urine Not Detected (NotDetected); Barbiturate Screen,Urine Not Detected (NotDetected); Benzodiazepines Screen,Urine Not Detected (NotDetected); Cocaine Screen,Urine Not Detected (NotDetected); Methadone Screen, Urine Not Detected (NotDetected); Opiate Screen,Urine Detected (NotDetected); Oxycodone Screen, Urine Not Detected (NotDetected); Phencyclidine Screen,Urine Not Detected (NotDetected); Tricyclic Antidepressant,Urine Not Detected (NotDetected); Urn Cannabinoid Scrn Detected (NotDetected)
== END 2021-07-18 23:18 | disposition other institution (70) ==
LOC: EC 20:23
DX: S72.002A Fracture of unspecified part of neck of left femur, initial encounter for closed fracture (principal); S72.001A Fracture of unspecified part of neck of right femur, initial encounter for closed fracture; I25.10 Atherosclerotic heart disease of native coronary artery without angina pectoris; E11.9 Type 2 diabetes mellitus without complications; I10 Essential (primary) hypertension; E78.5 Hyperlipidemia, unspecified; F17.200 Nicotine dependence, unspecified, uncomplicated; V86.59XA Driver of other special all-terrain or other off-road motor vehicle injured in nontraffic accident, initial encounter
CPT/HCPCS: 36415; 86900; 86901; 80053; 84484; 85025; 85610; 85730; 86850; 81003; 80306; 87635; 72170; 71045; 72125; 70450; 71260; 74177; 99285; 96374; 96375; 96376; 96361; G0480; J2270; J2405; J1170; Q9967; 80320

== ENCOUNTER → 2021-10-02 | Outpatient (CLI) | payer MEDICARE, BC ==
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
== END | disposition home or self-care (01) ==
LOC: RADBDWWP 09:10
PROVIDERS: ATTEND Family Medicine
DX: M81.0 Age-related osteoporosis without current pathological fracture (principal)
CPT/HCPCS: 77080

== ENCOUNTER 2022-02-27 11:23 | Inpatient (IN) | payer MEDICARE, BC ==
[2022-02-27] MEDS ORDERED: SODIUM CHLORIDE 0.9% 1,000 ML IV STA (11:36)
[2022-02-27 12:18] LABS: Basophils % (A) 1 %; Eosinophils # (A) 0.1 k/uL (0-0.7); Eosinophils % (A) 1 %; HCT 48.2 % (34.0-46.0); HGB 15.7 gm/dL (11.4-16.0); Lymphocytes # (A) 2.3 k/uL (1.0-4.8); Lymphocytes % (A) 28 %; MCH 30.5 pg (25.0-35.0); MCHC 32.6 g/dL (31.0-37.0); MCV 93.7 fL (80.0-100.0); Mean Platelet Volume 8.6; Monocytes # (A) 0.4 k/uL (0-1.0); Monocytes % (A) 4 %; Neutrophils # (A) 5.3 k/uL (1.3-7.7); Neutrophils % (A) 65 %; Platelet Count 237 k/uL (150-450); RBC 5.15 m/uL (3.80-5.40); RDW 12.4 % (11.5-15.5); WBC 8.2 k/uL (3.8-10.6)
--- NOTE | 2022-02-27 12:21 | XR ---
EXAMINATION TYPE: XR chest 2V DATE OF EXAM: 02/27/2022 12:16 PM COMPARISON: Chest radiographs from 07/18/2021 TECHNIQUE: XR chest 2V Frontal and lateral views of the chest. CLINICAL INDICATION:Female, 66 years old with history of SOB, left arm pain; FINDINGS: Lungs/Pleura: There is no evidence of pleural effusion, focal consolidation, or pneumothorax. Pulmonary vascularity: Unremarkable. Heart/mediastinum: Cardiomediastinal silhouette is prominent in size and stable. Atherosclerotic cristina cifications are seen in the aorta. Post-CABG changes. Musculoskeletal: Multiple level degenerative disc disease changes seen throughout the spine. Midline sternotomy wires are noted and stable. IMPRESSION: No acute cardiopulmonary disease/process. No significant change from prior examination.
[2022-02-27] MEDS: NITROGLYCERIN SL TABS 0.4 MG TAB SUBLINGUAL PRN ×2 (12:24→12:44)
[2022-02-27 12:34] LABS: ALT 28 U/L (4-34); AST 33 U/L (14-36); African American GFR (CKD) >90 (>60 ml/min/1.73 sqM); Albumin 4.1 g/dL (3.5-5.0); Alkaline Phosphatase 117 U/L (38-126); Anion Gap 10 mmol/L; Blood Urea Nitrogen 16 mg/dL (7-17); Calcium 9.1 mg/dL (8.4-10.2); Carbon Dioxide 26 mmol/L (22-30); Chloride 97 mmol/L (98-107); Non-African American GFR(CKD) >90 (>60 ml/min/1.73 sqM); Sodium 133 mmol/L (137-145); Total Bilirubin 0.8 mg/dL (0.2-1.3)
[2022-02-27 12:36] LABS: Glucose 512 mg/dL (74-99)
[2022-02-27 12:37] LABS: Potassium 5.4 mmol/L (3.5-5.1)
[2022-02-27] MEDS ORDERED: INSULIN REGULAR 100 UNIT/ML VIAL (IV) IV ONE (12:46)
[2022-02-27] MEDS ORDERED: ACETAMINOPHEN TAB 500 MG TAB PO STA (12:48)
[2022-02-27 12:49] LABS: INR 0.9 (<1.2); Prothrombin Time 9.8 sec (9.0-12.0)
[2022-02-27] MEDS ORDERED: KETOROLAC 15 MG/ML 1 ML VIAL IVP STA (12:49)
[2022-02-27 12:52] LABS: Partial Thromboplastin Time 20.4 sec (22.0-30.0)
[2022-02-27 13:29] LABS: VBG PH 7.34 (7.31-7.41)
--- NOTE | 2022-02-27 13:48 | XR ---
EXAMINATION TYPE: XR scapula LT DATE OF EXAM: 02/27/2022 CLINICAL HISTORY: Pain TECHNIQUE: Two views of the left shoulder are obtained. COMPARISON: None. FINDINGS: There is no acute fracture/dislocation evident in the left scapula. The acromioclavicular and glenohumeral joint spaces appear within normal limits. The visualized ribs are intact and unrem arkable. IMPRESSION: There is no acute fracture or dislocation in the left scapula.
--- NOTE | 2022-02-27 13:49 | ED ---
Extremity Problem HPI - General Chief complaint: Extremity Problem,Nontraumatic Stated complaint: shoulder & arm pain Time Seen by Provider: 02/27/22 11:33 Source: patient Mode of arrival: ambulatory Limitations: no limitations - History of Present Illness Initial comments: Patient is a 66-year-old female who presents to the emergency department with a chief complaint of left scapular pain. Patient started 3 days ago, she denies injury. Pain is a consistent stabbing in nature originating from the scapula and radiating down into the left arm. Patient taking [place] with little relief. This morning patient had nausea with one episode of vomiting. She also started to have some numbness in her left fingertips which brought her to the emergency department. She denies chest pain, shortness of breath, lightheadedness, dizziness. She has history of coronary artery disease s/p CABG in 2012, diabetes mellitus, hyperlipidemia, hypertension, PAD. Patient is a chronic smoker, smoking > 1 pack daily for the past 40 years. - Related Data Home Medications Medication Instructions Recorded Confirmed Aspirin 81 mg PO DAILY 06/18/13 08/07/20 Carvedilol [Coreg] 3.125 mg PO BID 06/18/13 08/07/20 Clopidogrel Bisulfate [Plavix] 75 mg PO DAILY 06/18/13 08/07/20 Atorvastatin [Lipitor] 80 mg PO HS 08/07/20 08/07/20 Cholecalciferol (Vitamin D3) 125 mcg PO DAILY 08/07/20 08/07/20 [Vitamin D3 (5000 Iu)] Citrical(Max +) 1 tab PO DAILY 08/07/20 08/07/20 Gabapentin [Neurontin] 100 mg PO BID 08/07/20 08/07/20 Insulin Glargine,Hum.rec.anlog 80 unit SQ HS 08/07/20 08/07/20 [Basaglar Kwikpen U-100] Magnesium Oxide 400 mg PO DAILY 08/07/20 08/07/20 Turmeric/Turmeric Root Extract 1 cap PO BID 08/07/20 08/07/20 [Turmeric 450-50 mg Capsule] lisinopriL [Prinivil] 10 mg PO DAILY 08/07/20 08/07/20 Allergies Allergy/AdvReac Type Severity Reaction Status Date / Time No Known Allergies Allergy Verified 01/13/23 11:32 Review of Systems ROS Statement: Those systems with pertinent positive or pertinent negative responses have been documented in the HPI. ROS Other: All systems not noted in ROS Statement are negative. Past Medical History Past Medical History: Coronary Artery Disease (CAD), Diabetes Mellitus, Hyperlipidemia, Hypertension, Vascular Disorder Additional Past Medical History / Comment(s): neuropathy, stents in bilat legs History of Any Multi-Drug Resistant Organisms: None Reported Past Surgical History: Coronary Bypass/CABG, Heart Catheterization, Orthopedic Surgery Additional Past Surgical History / Comment(s): triple bypass 2013 Past Anesthesia/Blood Transfusion Reactions: No Reported Reaction Past Psychological History: No Psychological Hx Reported Smoking Status: Current every day smoker Past Alcohol Use History: Occasional Past Drug Use History: Marijuana General Exam Limitations: no limitations General appearance: alert, in no apparent distress Head exam: Present: atraumatic, normocephalic, normal inspection Eye exam: Present: normal appearance, PERRL, EOMI. Absent: scleral icterus, conjunctival injection, periorbital swelling Respiratory exam: Present: normal lung sounds bilaterally. Absent: respiratory distress, wheezes, rales, rhonchi, stridor Cardiovascular Exam: Present: regular rate, normal rhythm, normal heart sounds. Absent: systolic murmur, diastolic murmur, rubs, gallop, clicks GI/Abdominal exam: Present: soft, normal bowel sounds. Absent: distended, tenderness, guarding, rebound, rigid Neurological exam: Present: alert, oriented X3, CN II-XII intact Psychiatric exam: Present: normal affect, normal mood Skin exam: Present: warm, dry, intact, normal color. Absent: rash Course Vital Signs 02/27/22 11:29 Temperature 98.4 F Pulse Rate 77 Respiratory 20 Rate Blood Pressure 164/88 Medical Decision Making - Medical Decision Making Was pt. sent in by a medical professional or institution (, PA, MEDICAL LANGUAGE SPECIALIST, urgent care, hospital, or residential...) When possible be specific @ -[No] Did you speak to anyone other than the patient for history (EMS, parent, family, police, friend...)? What history was obtained from this source @ -[No] Did you review nursing and triage notes (agree or disagree)? Why? @ -[I reviewed and agree with nursing and triage notes] Were old charts reviewed (outside hosp., previous admission, EMS record, old EKG, old radiological studies, urgent care reports/EKG's, residential records)? Report findings @ -Yes, new EKG changes today when compared with previous. Differential Diagnosis (chest pain, altered mental status, abdominal pain women, abdominal pain men, vaginal bleeding, weakness, fever, dyspnea, syncope, headache, dizziness, GI bleed, back pain, seizure, CVA, palpatations, mental health)? @ -NSTEMI, STEMI, MSK pain EKG interpreted by me (3pts min.). @ -Yes, sinus rhythm with new T-wave inversions in V4, V5, aVL X-rays interpreted by me (1pt min.). @ -Yes, chest x-ray shows no acute process. Left scapular x-ray shows no acute process. Left shoulder x-ray shows calcification along the humeral head that could be associated with calcific tendinosis of the rotator cuff CT interpreted by me (1pt min.). @ -[None done] U/S interpreted by me (1pt. min.). @ -[None done] What testing was considered but not performed or refused? (CT, X-rays, U/S, labs)? Why? @ -[None] What meds were considered but not given or refused? Why? @ -[None] Did you discuss the management of the patient with other professionals (professionals i.e. , PA, MEDICAL LANGUAGE SPECIALIST, lab, RT, psych nurse, social work instructor, logistics research engineer, teacher, parking officer, case liner)? Give summary @ -[No] Was smoking cessation discussed for >3mins.? @ -[No] Was critical care preformed (if so, how long)? @ -[No] Were there social determinants of health that impacted care today? How? (Homelessness, low income, unemployed, alcoholism, drug addiction, transportati on, low edu. Level, literacy, decrease access to med. care, penitentiary, rehab)? @ -[No] Was there de-escalation of care discussed even if they declined (Discuss DNR or withdrawal of care, Hospice)? DNR status @ -[No] What co-morbidities impacted this encounter? (DM, HTN, Smoking, COPD, CAD, Cancer, CVA, ARF, Chemo, Hep., AIDS, mental health diagnosis, sleep apnea, morbid obesity)? @ -Diabetes mellitus, hypertension, hyperlipidemia CAD, PAD, smoking Was patient admitted / discharged? Hospital course, mention meds given and route, prescriptions, significant lab abnormalities, going to OR and other pertinent info. @ -This is a 66-year-old female presenting with left scapular pain. Patient well-appearing and in no apparent distress. EKG shows sinus rhythm with non specific T-wave inversions.Troponin normal limits. There is hyperglycemia at 512. Chest x-ray negative for acute process. Left shoulder x-ray does show calcification along the humeral head that could be associated with calcific tendinosis of the rotator cuff. Insulin and saline bolus given. Results discussed with patient and daughter. Scapular pain is not reproducible with palpation or movement. Patient has significant cardiac history and new EKG changes. Acute coronary event cannot be ruled out. Patient admitted to Dr. Verma. Cardiology consulted. Will trend troponin. Undiagnosed new problem with uncertain prognosis? @ -[No] Drug Therapy requiring intensive monitoring for toxicity (Heparin, Nitro, Insulin, Cardizem)? @ -[No] Were any procedures done? @ -[No] Diagnosis/symptom? @ -left scapular pain Acute, or Chronic, or Acute on Chronic? @ -acute Uncomplicated (without systemic symptoms) or Complicated (systemic symptoms)? @ -uncomplicated Side effects of treatment? @ -[No] Exacerbation, Progression, or Severe Exacerbation? @ -[No] Poses a threat to life or bodily function? How? (Chest pain, [place], [place], pneumonia, PE, COPD, DKA, ARF, appy, cholecystitis, CVA, Diverticulitis, Homicidal, Suicidal, threat to staff... and all critical care pts) @ -possibly Diagnosis/symptom? @ -nausea and vomiting Acute, or Chronic, or Acute on Chronic? @ -acute Uncomplicated (without systemic symptoms) or Complicated (systemic symptoms)? @ -uncomplicated Side effects of treatment? @ -[none] Exacerbation, Progression, or Severe Exacerbation] @ -[no] Poses a threat to life or bodily function? @ -[no] Diagnosis/symptom? @ -hyperglycemia Acute, or Chronic, or Acute on Chronic? @ -acute Uncomplicated (without systemic symptoms) or Complicated (systemic symptoms)? @ -uncomplicated Side effects of treatment? @ -[none] Exacerbation, Progression, or Severe Exacerbation] @ -[no] Poses a threat to life or bodily function? @ -[no] - Lab Data Result diagrams: 02/27/22 12:02 02/27/22 12:02 Lab Results 02/27/22 02/27/22 02/27/22 Range/Units 12:02 12:02 12:02 WBC 8.2 (3.8-10.6) k/uL RBC 5.15 (3.80-5.40) m/uL Hgb 15.7 (11.4-16.0) gm/dL Hct 48.2 H (34.0-46.0) % MCV 93.7 (80.0-100.0) fL MCH 30.5 (25.0-35.0) pg MCHC 32.6 (31.0-37.0) g/dL RDW 12.4 (11.5-15.5) % Plt Count 237 (150-450) k/uL MPV 8.6 Neutrophils % 65 % Lymphocytes % 28 % Monocytes % 4 % Eosinophils % 1 % Basophils % 1 % Neutrophils # 5.3 (1.3-7.7) k/uL Lymphocytes # 2.3 (1.0-4.8) k/uL Monocytes # 0.4 (0-1.0) k/uL Eosinophils # 0.1 (0-0.7) k/uL Basophils # 0.0 (0-0.2) k/uL PT 9.8 (9.0-12.0) sec INR 0.9 (<1.2) APTT 20.4 L (22.0-30.0) sec D-Dimer 0.58 (<0.60) mg/L FEU VBG pH (7.31-7.41) VBG pCO2 (37-51) mmHg VBG HCO3 (24-28) mmol/L Sodium 133 L (137-145) mmol/L Potassium 5.4 H (3.5-5.1) mmol/L Chloride 97 L (98-107) mmol/L Carbon Dioxide 26 (22-30) mmol/L Anion Gap 10 mmol/L BUN 16 (7-17) mg/dL Creatinine 0.60 (0.52-1.04) mg/dL Est GFR (CKD-EPI)AfAm >90 (>60 ml/min/1.73 sqM) Est GFR (CKD-EPI)NonAf >90 (>60 ml/min/1.73 sqM) Glucose 512 H* (74-99) mg/dL POC Glucose (mg/dL) (70-110) mg/dL POC Glu Correspondence Specialist ID Calcium 9.1 (8.4-10.2) mg/dL Magnesium 2.0 (1.6-2.3) mg/dL Total Bilirubin 0.8 (0.2-1.3) mg/dL AST 33 (14-36) U/L ALT 28 (4-34) U/L Alkaline Phosphatase 117 (38-126) U/L Troponin I (0.000-0.034) ng/mL Total Protein 7.0 (6.3-8.2) g/dL Albumin 4.1 (3.5-5.0) g/dL Acetone, Qual (Negative) 02/27/22 02/27/22 02/27/22 Range/Units 12:02 12:02 13:10 WBC (3.8-10.6) k/uL RBC (3.80-5.40) m/uL Hgb (11.4-16.0) gm/dL Hct (34.0-46.0) % MCV (80.0-100.0) fL MCH (25.0-35.0) pg MCHC (31.0-37.0) g/dL RDW (11.5-15.5) % Plt Count (150-450) k/uL MPV Neutrophils % % Lymphocytes % % Monocytes % % Eosinophils % % Basophils % % Neutrophils # (1.3-7.7) k/uL Lymphocytes # (1.0-4.8) k/uL Monocytes # (0-1.0) k/uL Eosinophils # (0-0.7) k/uL Basophils # (0-0.2) k/uL PT (9.0-12.0) sec INR (<1.2) APTT (22.0-30.0) sec D-Dimer (<0.60) mg/L FEU VBG pH 7.34 (7.31-7.41) VBG pCO2 53 H (37-51) mmHg VBG HCO3 28 (24-28) mmol/L Sodium (137-145) mmol/L Potassium (3.5-5.1) mmol/L Chloride (98-107) mmol/L Carbon Dioxide (22-30) mmol/L Anion Gap mmol/L BUN (7-17) mg/dL Creatinine (0.52-1.04) mg/dL Est GFR (CKD-EPI)AfAm (>60 ml/min/1.73 sqM) Est GFR (CKD-EPI)NonAf (>60 ml/min/1.73 sqM) Glucose (74-99) mg/dL POC Glucose (mg/dL) (70-110) mg/dL POC Glu Correspondence Specialist ID Calcium (8.4-10.2) mg/dL Magnesium (1.6-2.3) mg/dL Total Bilirubin (0.2-1.3) mg/dL AST (14-36) U/L ALT (4-34) U/L Alkaline Phosphatase (38-126) U/L Troponin I <0.012 (0.000-0.034) ng/mL Total Protein (6.3-8.2) g/dL Albumin (3.5-5.0) g/dL Acetone, Qual Positive (Negative) 02/27/22 Range/Units 14:05 WBC (3.8-10.6) k/uL RBC (3.80-5.40) m/uL Hgb (11.4-16.0) gm/dL Hct (34.0-46.0) % MCV (80.0-100.0) fL MCH (25.0-35.0) pg MCHC (31.0-37.0) g/dL RDW (11.5-15.5) % Plt Count (150-450) k/uL MPV Neutrophils % % Lymphocytes % % Monocytes % % Eosinophils % % Basophils % % Neutrophils # (1.3-7.7) k/uL Lymphocytes # (1.0-4.8) k/uL Monocytes # (0-1.0) k/uL Eosinophils # (0-0.7) k/uL Basophils # (0-0.2) k/uL PT (9.0-12.0) sec INR (<1.2) APTT (22.0-30.0) sec D-Dimer (<0.60) mg/L FEU VBG pH (7.31-7.41) VBG pCO2 (37-51) mmHg VBG HCO3 (24-28) mmol/L Sodium (137-145) mmol/L Potassium (3.5-5.1) mmol/L Chloride (98-107) mmol/L Carbon Dioxide (22-30) mmol/L Anion Gap mmol/L BUN (7-17) mg/dL Creatinine (0.52-1.04) mg/dL Est GFR (CKD-EPI)AfAm (>60 ml/min/1.73 sqM) Est GFR (CKD-EPI)NonAf (>60 ml/min/1.73 sqM) Glucose (74-99) mg/dL POC Glucose (mg/dL) 363 H (70-110) mg/dL POC Glu Correspondence Specialist YESENIA Romie Faustin Calcium (8.4-10.2) mg/dL Magnesium (1.6-2.3) mg/dL Total Bilirubin (0.2-1.3) mg/dL AST (14-36) U/L ALT (4-34) U/L Alkaline Phosphatase (38-126) U/L Troponin I (0.000-0.034) ng/mL Total Protein (6.3-8.2) g/dL Albumin (3.5-5.0) g/dL Acetone, Qual (Negative) Disposition Clinical Impression: Pain of left scapula, T wave inversion in EKG, Hyperglycemia, Nausea and vomiting Disposition: ADMITTED IP TO THIS [facility] Condition: Stable Referrals: Amish Verma DO [Primary Care Provider] - 1-2 days
--- NOTE | 2022-02-27 13:49 | XR ---
EXAMINATION TYPE: XR shoulder complete LT DATE OF EXAM: 02/27/2022 COMPARISON: NONE HISTORY: Pain TECHNIQUE: Three views are submitted. FINDINGS: The osseous structures are intact. There is no acute fracture or dislocation. AC joint maintained. C alcification along the humeral head. IMPRESSION: 1. Calcification along the humeral head could be associated with calcific tendinosis of the rotator c uff. Correlate clinically..
[2022-02-27 14:08] LABS: Glucose,Whole Blood 363 mg/dL (70-110)
[2022-02-27] MEDS ORDERED: NALOXONE 0.4 MG/ML 1 ML VIAL IV PRN (14:25)
[2022-02-27] MEDS: SODIUM CHLORIDE 0.9% 1,000 ML IV SCH (14:48)
[2022-02-27] MEDS ORDERED: DEXTROSE 50% SYRINGE 50 ML IVP PRN ×2 (17:21)
[2022-02-27] MEDS ORDERED: REPAGLINIDE 1 MG TAB PO SCH (17:30)
[2022-02-27 17:40] LABS: Glucose,Whole Blood 364 mg/dL (70-110)
[2022-02-27] MEDS: INSULIN ASPART (NovoLOG) 100 UNIT/ML VIAL SQ SCH ×2 (17:46→21:31)
[2022-02-27] MEDS: carvediloL 3.125 MG TAB PO SCH (17:47)
[2022-02-27] MEDS ORDERED: ACETAMINOPHEN TAB 325 MG TAB PO PRN (17:52)
[2022-02-27] MEDS: traMADol 50 MG TAB PO SCH ×2 (18:00→22:24)
[2022-02-27 20:29] LABS: Glucose,Whole Blood 292 mg/dL (70-110)
[2022-02-27] MEDS ORDERED: INSULIN DETEMIR (LEVEMIR) 100 UNIT/ML SYR SQ SCH (21:00)
[2022-02-27] MEDS: FAMOTIDINE 20 MG TAB PO SCH (21:31)
[2022-02-27] MEDS: GABAPENTIN 100 MG CAP PO SCH (21:31)
[2022-02-27] MEDS: APIXABAN 5 MG TAB PO SCH (21:31)
[2022-02-28] MEDS: SODIUM CHLORIDE 0.9% 1,000 ML IV SCH (05:14)
[2022-02-28 07:36] LABS: Glucose,Whole Blood 160 mg/dL (70-110)
[2022-02-28] MEDS: traMADol 50 MG TAB PO SCH ×2 (08:03→13:37)
[2022-02-28] MEDS: APIXABAN 5 MG TAB PO SCH (08:04)
[2022-02-28] MEDS: carvediloL 3.125 MG TAB PO SCH (08:04)
[2022-02-28] MEDS: GABAPENTIN 100 MG CAP PO SCH (08:05)
[2022-02-28] MEDS: FAMOTIDINE 20 MG TAB PO SCH (08:05)
[2022-02-28] MEDS: INSULIN ASPART (NovoLOG) 100 UNIT/ML VIAL SQ SCH ×4 (08:05→13:38)
[2022-02-28 08:21] VITALS: RESP 18
[2022-02-28 08:41] LABS: African American GFR (CKD) 110.1 (60.0-200.0); BUN/Creat Ratio 24.5 Ratio (12.00-20.00); Blood Urea Nitrogen 14.7 mg/dL (9.0-27.0); Calcium 9.2 mg/dL (8.7-10.3); Potassium 4.3 mmol/L (3.5-5.5)
[2022-02-28] MEDS ORDERED: ASPIRIN 81 MG PO SCH (09:00)
[2022-02-28] MEDS ORDERED: ATORVASTATIN 80 MG TAB PO SCH (09:00)
[2022-02-28] MEDS ORDERED: CLOPIDOGREL 75 MG TAB PO SCH (09:00)
[2022-02-28] MEDS ORDERED: DAPAGLIFLOZIN PROPANEDIOL 10 MG TABLET PO SCH (09:00)
[2022-02-28] MEDS ORDERED: PIOGLITAZONE 15 MG TAB PO SCH (09:00)
[2022-02-28] MEDS ORDERED: ISOSORBIDE MONONITRATE ER 30 MG TAB.ER.24H PO SCH (09:45)
--- NOTE | 2022-02-28 10:55 | P.DS ---
Providers Date of admission: 02/27/22 14:43 Attending physician: Amish Verma Consults: 02/27/22 14:25 Consult Physician Routine Consulting Provider: Michael Andre Consult Reason/Comments: ekg changes Do you want consulting provider notified?: Yes Primary care physician: Amish Verma [facility] Course: Please suffered a history of present illness for further details Patient Condition at Discharge: Stable Plan - Discharge Summary Discharge Rx Participant: No New Discharge Prescriptions: New INSULIN ASPART (NovoLOG) [NovoLOG (formulary)] 6 unit SQ AC-TID #5 pen Isosorbide Mononitrate ER [Imdur] 30 mg PO DAILY #30 tab Continue Clopidogrel Bisulfate [Plavix] 75 mg PO DAILY Carvedilol [Coreg] 3.125 mg PO BID Apixaban [Eliquis] 5 mg PO BID Dapagliflozin Propanediol [Farxiga] 10 mg PO DAILY Semaglutide [Ozempic] 1 mg SQ TU Zinc Gluconate [Zinc] 50 mg PO DAILY Cholecalciferol (Vitamin D3) [Vitamin D3 (5000 Iu)] 125 mcg PO DAILY Gabapentin [Neurontin] 100 mg PO BID Insulin Glargine,Hum.rec.anlog [Basaglar Kwikpen U-100] 35 unit SQ HS Magnesium Oxide 400 mg PO DAILY Aspirin EC [Ecotrin Low Dose] 81 mg PO DAILY lisinopriL [Zestril] 20 mg PO DAILY Pioglitazone [Actos] 15 mg PO DAILY Repaglinide [Prandin] 1 mg PO AC-SUPPER Rosuvastatin Calcium [Crestor] 40 mg PO DAILY Turmeric Root Extract [Turmeric] 500 mg PO DAILY Discharge Medication List Carvedilol [Coreg] 3.125 mg PO BID 06/18/13 [History] Clopidogrel Bisulfate [Plavix] 75 mg PO DAILY 06/18/13 [History] Cholecalciferol (Vitamin D3) [Vitamin D3 (5000 Iu)] 125 mcg PO DAILY 08/07/20 [History] Gabapentin [Neurontin] 100 mg PO BID 08/07/20 [History] Insulin Glargine,Hum.rec.anlog [Basaglar Kwikpen U-100] 35 unit SQ HS 08/07/20 [History] Magnesium Oxide 400 mg PO DAILY 08/07/20 [History] Apixaban [Eliquis] 5 mg PO BID 02/27/22 [History] Aspirin EC [Ecotrin Low Dose] 81 mg PO DAILY 02/27/22 [History] Dapagliflozin Propanediol [Farxiga] 10 mg PO DAILY 02/27/22 [History] Pioglitazone [Actos] 15 mg PO DAILY 02/27/22 [History] Repaglinide [Prandin] 1 mg PO AC-SUPPER 02/27/22 [History] Rosuvastatin Calcium [Crestor] 40 mg PO DAILY 02/27/22 [History] Semaglutide [Ozempic] 1 mg SQ TU 02/27/22 [History] Turmeric Root Extract [Turmeric] 500 mg PO DAILY 02/27/22 [History] Zinc Gluconate [Zinc] 50 mg PO DAILY 02/27/22 [History] lisinopriL [Zestril] 20 mg PO DAILY 02/27/22 [History] INSULIN ASPART (NovoLOG) [NovoLOG (formulary)] 6 unit SQ AC-TID #5 pen 02/28/22 [Rx] Isosorbide Mononitrate ER [Imdur] 30 mg PO DAILY #30 tab 02/28/22 [Rx] Follow up Appointment(s)/Referral(s): Amish Verma DO [Primary Care Provider] - 3 Days Mushtaq Baltazar MD [STAFF PHYSICIAN] - 1 Week Billy Johnson MD [STAFF PHYSICIAN] - 1 Week Discharge Disposition: HOME SELF-CARE
--- NOTE | 2022-02-28 10:55 | P.HPIM ---
History of Present Illness 66-year-old up as an female came in with the pain in the left scapula pain sharp in nature has been going on for 3 days constant improved with pain medication. Patient had some EKG changes nonspecific ST-T wave changes and T-wave inversions in multiple leads because of which cardiology was consulted and cardiology recommended an echo cardiac exam. Patient pain is improved patient came in with the highly elevated blood sugars of 600 which improved just with home regimen in addition of 6 units female insulin. Patient admitted that she has been noncompliant with her medications because of stress at home. 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 Patient had a shoulder x-ray on the left side which showed calcific tendinitis of the rotator cuff. REVIEW OF SYSTEMS: CONSTITUTIONAL: No fever, no malaise, no fatigue. HEENT: No recent visual problems or hearing problems. Denied any sore throat. CARDIOVASCULAR: No chest pain, orthopnea, PND, no palpitations, no syncope. PULMONARY: No shortness of breath, no cough, no hemoptysis. GASTROINTESTINAL: No diarrhea, no nausea, no vomiting, no abdominal pain. NEUROLOGICAL: No headaches, no weakness, no numbness. HEMATOLOGICAL: Denies any bleeding or petechiae. GENITOURINARY: Denies any burning micturition, frequency, or urgency. MUSCULOSKELETAL/RHEUMATOLOGICAL: As mentioned in HPI ENDOCRINE: Denies any polyuria or polydipsia. The rest of the 14-point review of systems is negative. PHYSICAL EXAMINATION: GENERAL: The patient is alert and oriented x3, not in any acute distress. Well developed, well nourished. HEENT: Pupils are round and equally reacting to light. EOMI. No scleral icterus. No conjunctival pallor. Normocephalic, atraumatic. No pharyngeal erythema. No thyromegaly. CARDIOVASCULAR: S1 and S2 present. No murmurs, rubs, or gallops. PULMONARY: Chest is clear to auscultation, no wheezing or crackles. ABDOMEN: Soft, nontender, nondistended, normoactive bowel sounds. No palpable organomegaly. MUSCULOSKELETAL: No joint swelling or deformity. EXTREMITIES: No cyanosis, clubbing, or pedal edema. NEUROLOGICAL: Gross neurological examination did not reveal any focal deficits. SKIN: No rashes. Assessment and plan -Left shoulder pain secondary to calcific tendinitis improved with nonsteroidal anti-inflammatories and tramadol, patient will be discharged on tramadol. -Nonspecific EKG changes: Cardiology evaluation echocardiac Sebas be up and if that's within normal limits patient will be discharged -Type 2 diabetes mellitus uncontrolled highly elevated blood sugars due to noncompliance with medications, patient will be discharged on home regimen plus pre-meal insulin -History of coronary artery disease with CABG in the past -Nicotine use: Counseling was provided excellent have him for vascular disease next and-hyperlipemia -Hypertension -Diabetic peripheral neuropathy Past Medical History Past Medical History: Coronary Artery Disease (CAD), Diabetes Mellitus, Hyperlipidemia, Hypertension, Vascular Disorder Additional Past Medical History / Comment(s): neuropathy, stents in bilat legs History of Any Multi-Drug Resistant Organisms: None Reported Past Surgical History: Coronary Bypass/CABG, Heart Catheterization, Orthopedic Surgery Additional Past Surgical History / Comment(s): triple bypass 2012 Past Anesthesia/Blood Transfusion Reactions: No Reported Reaction Past Psychological History: No Psychological Hx Reported Smoking Status: Current every day smoker Past Alcohol Use History: Occasional Past Drug Use History: Marijuana Medications and Allergies Home Medications Medication Instructions Recorded Confirmed Type Carvedilol [Coreg] 3.125 mg PO BID 06/18/13 02/27/22 History Clopidogrel Bisulfate [Plavix] 75 mg PO DAILY 06/18/13 02/27/22 History Cholecalciferol (Vitamin D3) 125 mcg PO DAILY 08/07/20 02/27/22 History [Vitamin D3 (5000 Iu)] Gabapentin [Neurontin] 100 mg PO BID 08/07/20 02/27/22 History Insulin Glargine,Hum.rec.anlog 35 unit SQ HS 08/07/20 02/27/22 History [Basaglar Kwikpen U-100] Magnesium Oxide 400 mg PO DAILY 08/07/20 02/27/22 History Apixaban [Eliquis] 5 mg PO BID 02/27/22 02/27/22 History Aspirin EC [Ecotrin Low Dose] 81 mg PO DAILY 02/27/22 02/27/22 History Dapagliflozin Propanediol [Farxiga] 10 mg PO DAILY 02/27/22 02/27/22 History Pioglitazone [Actos] 15 mg PO DAILY 02/27/22 02/27/22 History Repaglinide [Prandin] 1 mg PO AC-SUPPER 02/27/22 02/27/22 History Rosuvastatin Calcium [Crestor] 40 mg PO DAILY 02/27/22 02/27/22 History Semaglutide [Ozempic] 1 mg SQ TU 02/27/22 02/27/22 History Turmeric Root Extract [Turmeric] 500 mg PO DAILY 02/27/22 02/27/22 History Zinc Gluconate [Zinc] 50 mg PO DAILY 02/27/22 02/27/22 History lisinopriL [Zestril] 20 mg PO DAILY 02/27/22 02/27/22 History INSULIN ASPART (NovoLOG) [NovoLOG 6 unit SQ AC-TID #5 pen 02/28/22 Rx (formulary)] Isosorbide Mononitrate ER [Imdur] 30 mg PO DAILY #30 tab 02/28/22 Rx Allergies Allergy/AdvReac Type Severity Reaction Status Date / Time No Known Allergies Allergy Verified 02/27/22 14:54 Physical Exam Vitals: Vital Signs Temp Pulse Pulse Resp BP BP Pulse Ox 02/28/22 08:00 97.9 F 64 18 128/95 96 02/28/22 07:25 95 02/28/22 02:00 97.9 F 56 L 16 149/71 95 02/27/22 20:00 97.7 F 70 16 160/84 97 02/27/22 16:37 97.6 F 72 18 97 02/27/22 15:00 68 19 160/72 97 02/27/22 14:00 60 18 103/54 95 02/27/22 13:00 74 17 110/79 96 02/27/22 12:00 69 16 126/73 02/27/22 11:45 71 20 02/27/22 11:29 98.4 F 77 20 164/88 Intake and Output 02/27/22 02/28/22 02/28/22 22:59 06:59 14:59 Intake Total 590 Balance 590 Intake: Oral 590 Other: Voiding Method Toilet # Voids 1 2 Weight 79.379 kg Results CBC & Chem 7: 02/27/22 12:02 02/28/22 05:25 Labs: Abnormal Lab Results - Last 24 Hours (Table) 02/27/22 02/27/22 02/27/22 Range/Units 12:02 12:02 12:02 Hct 48.2 H (34.0-46.0) % APTT 20.4 L (22.0-30.0) sec VBG pCO2 (37-51) mmHg Sodium 133 L (137-145) mmol/L Potassium 5.4 H (3.5-5.1) mmol/L Chloride 97 L (98-107) mmol/L Anion Gap (10.00-18.00) mmol/L BUN/Creatinine Ratio (12.00-20.00) Ratio Glucose 512 H* (74-99) mg/dL POC Glucose (mg/dL) (70-110) mg/dL Hemoglobin A1c (0.0-6.0) % 02/27/22 02/27/22 02/27/22 Range/Units 12:02 13:10 14:05 Hct (34.0-46.0) % APTT (22.0-30.0) sec VBG pCO2 53 H (37-51) mmHg Sodium (137-145) mmol/L Potassium (3.5-5.1) mmol/L Chloride (98-107) mmol/L Anion Gap (10.00-18.00) mmol/L BUN/Creatinine Ratio (12.00-20.00) Ratio Glucose (74-99) mg/dL POC Glucose (mg/dL) 363 H (70-110) mg/dL Hemoglobin A1c 15.8 H (0.0-6.0) % 02/27/22 02/27/22 02/28/22 Range/Units 17:38 20:28 05:25 Hct (34.0-46.0) % APTT (22.0-30.0) sec VBG pCO2 (37-51) mmHg Sodium (137-145) mmol/L Potassium (3.5-5.1) mmol/L Chloride (98-107) mmol/L Anion Gap 9.00 L (10.00-18.00) mmol/L BUN/Creatinine Ratio 24.50 H (12.00-20.00) Ratio Glucose 159 H (74-99) mg/dL POC Glucose (mg/dL) 364 H 292 H (70-110) mg/dL Hemoglobin A1c (0.0-6.0) % 02/28/22 Range/Units 07:34 Hct (34.0-46.0) % APTT (22.0-30.0) sec VBG pCO2 (37-51) mmHg Sodium (137-145) mmol/L Potassium (3.5-5.1) mmol/L Chloride (98-107) mmol/L Anion Gap (10.00-18.00) mmol/L BUN/Creatinine Ratio (12.00-20.00) Ratio Glucose (74-99) mg/dL POC Glucose (mg/dL) 160 H (70-110) mg/dL Hemoglobin A1c (0.0-6.0) % Thrombosis Risk Factor Assmnt - Choose All That Apply Any of the Below Risk Factors Present?: Yes Each Factor Represents 1 point: Obesity (BMI >25) Other Risk Factors: Yes Each Risk Factor Represents 2 Points: Age 61-74 years Thrombosis Risk Factor Assessment Total Risk Factor Score: 3 Thrombosis Risk Factor Assessment Level: Moderate Risk
--- NOTE | 2022-02-28 11:39 | CONS ---
CONSULTATION HISTORY OF PRESENT ILLNESS: Candi is a 66-year-old lady, who came to hospital complaining of discomfort, primarily involving the interscapular area. It feels like a stabbing discomfort and radiates somewhat down the left arm. She has also had nausea, vomiting, and was found to be in diabetic ketoacidosis. She has known history of coronary artery disease for which she underwent bypass surgery in 2012, hypertension, diabetes, dyslipidemia, and peripheral arterial disease. At the time of my evaluation, she appears comfortable at rest. EKG shows sinus rhythm with nonspecific T-wave inversions in the precordial leads and poor R-wave progression. Troponin is negative. I believe, most of her symptoms are related to the diabetic ketoacidosis. EKG changes are nonspecific, and we can certainly need further evaluation probably with stress test unless symptoms persist. I will add Imdur and continue the beta trisha that she is currently on. The patient is on Eliquis because of history of pulmonary embolism. She is also on Plavix because of peripheral arterial disease and aspirin. I advised her to hold the Plavix until she gets off the Eliquis. PAST MEDICAL HISTORY: Significant for coronary artery disease status post CABG, pulmonary embolism, hypertension, diabetes, dyslipidemia, peripheral arterial disease. MEDICATIONS AT HOME: Included: 1. Zestril. 2. Zinc. 3. Turmeric. 4. Crestor. 5. Prandin. 6. Actos. 7. Farxiga. 8. Plavix. 9. Coreg. 10.Aspirin. 11.Eliquis. ALLERGIES: No known drug allergies. FAMILY HISTORY: Negative for premature coronary artery disease. SOCIAL HISTORY: Negative for current smoking, EtOH abuse, or drug abuse. REVIEW OF SYSTEMS: HEENT: Unremarkable. CARDIAC: As described above. RESPIRATORY: Negative. GI: Negative. GENITOURINARY: Negative. ALLERGY/IMMUNOLOGY: Negative. SKIN: Negative. MUSCULOSKELETAL: Negative. CONSTITUTIONAL: Significant for fatigue, tiredness, and not feeling well. ENDOCRINE: Significant for diabetic ketoacidosis. SH[employer]ER: Negative. Rest of the system review is not relevant. PHYSICAL EXAMINATION: GENERAL: Comfortable at rest. VITAL SIGNS: Stable. CHEST: Reveals good air entry bilaterally. HEART: Reveals first and second heart sounds. No gallop. Has a systolic murmur at the left lower sternal border. ABDOMEN: Soft. EXTREMITIES: Did not reveal any edema. Peripheral pulses are felt. LABORATORY DATA: Labs show that the troponin is negative, creatinine is normal at 0.6. Hemoglobin A1c is elevated. Blood sugars are elevated. Acetone was positive. EKG shows nonspecific ST-T wave changes in the precordial leads. ASSESSMENT: 1. Chest pain, myocardial infarction ruled out. 2. Abnormal EKG. 3. Coronary artery disease, status post coronary artery bypass graft. 4. Diabetic ketoacidosis. 5. Peripheral arterial disease. 6. History of pulmonary embolism. PLAN: I will obtain a 2D echo. Add nitrates. Continue rest of her medications. MMODL / IJN: [id number] /
[2022-02-28 13:07] LABS: Glucose,Whole Blood 174 mg/dL (70-110)
--- NOTE | 2022-02-28 13:20 | CA ---
Transthoracic Echo Report Name: Candi Burch Age: 66 Gender: F : 1955 Exam Date: 02/28/2022 11:34 Exam Location: [facility] Ht (in): 65 Wt (lb): 175 Ordering Physician: Billy Johnson MD ([id number]) Attending/Referring Phys: Alex TA [employer] Isabel Jackson RDCS Procedure CPT: Indications: Chest Pain Cardiac Hx: Technical Quality: Contrast 1: Total Dose (mL): Contrast 2: Total Dose (mL): MEASUREMENTS (Male / Female) Normal Values 2D ECHO LV Diastolic Diameter PLAX 4.8 cm 4.2 - 5.9 / 3.9 - 5.3 cm LV Systolic Diameter PLAX 3.8 cm IVS Diastolic Thickness 0.8 cm 0.6 - 1.0 / 0.6 - 0.9 cm LVPW Diastolic Thickness 1.4 cm 0.6 - 1.0 / 0.6 - 0.9 cm LV Relative Wall Thickness 0.5 RV Internal Dim ED PLAX 3.0 cm LA Systolic Diameter LX 5.0 cm 3.0 - 4.0 / 2.7 - 3.8 cm LV Diastolic Volume MOD BP 68.0 cm??? 67 - 155 / 56 - 104 cm??? LV Systolic Volume MOD BP 33.0 cm??? 22 - 58 / 19 - 49 cm??? LV Ejection Fraction MOD BP 51.5 % >= 55 % LV Diastolic Volume MOD 4C 67.3 cm??? LV Systolic Volume MOD 4C 23.9 cm??? LV Ejection Fraction MOD 4C 64.4 % LV Diastolic Length 4C 7.2 cm LV Systolic Length 4C 6.0 cm LV Diastolic Volume MOD 2C 66.5 cm??? LV Systolic Volume MOD 2C 42.5 cm??? LV Ejection Fraction MOD 2C 36.1 % LV Diastolic Length 2C 6.9 cm LV Systolic Length 2C 6.5 cm LA Volume 52.7 cm??? 18 - 58 / 22 - 52 cm??? M-MODE Aortic Root Diameter MM 3.1 cm LA Systolic Diameter MM 4.6 cm LA Ao Ratio MM 1.5 MV E Point Septal Separation 0.4 cm AV Cusp Separation MM 1.5 cm DOPPLER MV Area PHT 2.1 cm??? Mitral E Point Velocity 55.5 cm/s Mitral A Point Velocity 92.1 cm/s Mitral E to A Ratio 0.6 MV Deceleration Time 368.7 ms MV E' Velocity 4.4 cm/s Mitral E to MV E' Ratio 12.8 FINDINGS Left Ventricle Left ventricular ejection fraction is estimated at 55 %. Left ventricular cavity size normal. Right Ventricle Normal right ventricular size and function. Right ventricular systolic pressure within normal limits. Right Atrium Normal right atrial size. Left Atrium Severely increased left atrial diameter. Mitral Valve Structurally normal mitral valve. Mitral annular calcification. Mild mitral regurgitation. Aortic Valve Trileaflet aortic valve. Tricuspid Valve Structurally normal tricuspid valve. Mild tricuspid regurgitation. Pulmonic Valve Structurally normal pulmonic valve. Pericardium Normal pericardium. Aorta Normal size aortic root and proximal ascending aorta. CONCLUSIONS Normal LV function Mitral annular calcification with mild mitral regurgitation Previewed by: Dr. Billy Johnson MD (Electronically Signed) Final Date: 28 February 2022 13:19
[2022-02-28 14:46] VITALS: BP 136/65; PULSE 56; TEMP 98.3
== END 2022-02-28 16:38 | disposition home or self-care (01) | DRG 555 ==
LOC: EC 11:23 → 5NMEDONC 14:43
PROVIDERS: ADMIT Family Medicine; ATTEND Family Medicine
DX: M25.512 Pain in left shoulder (principal); E11.10 Type 2 diabetes mellitus with ketoacidosis without coma; E78.5 Hyperlipidemia, unspecified; E11.51 Type 2 diabetes mellitus with diabetic peripheral angiopathy without gangrene; E11.42 Type 2 diabetes mellitus with diabetic polyneuropathy; I10 Essential (primary) hypertension; I25.10 Atherosclerotic heart disease of native coronary artery without angina pectoris; Z95.1 Presence of aortocoronary bypass graft; F12.90 Cannabis use, unspecified, uncomplicated; F17.210 Nicotine dependence, cigarettes, uncomplicated; Z95.828 Presence of other vascular implants and grafts; Z79.82 Long term (current) use of aspirin; Z79.899 Other long term (current) drug therapy; Z79.02 Long term (current) use of antithrombotics/antiplatelets; Z79.4 Long term (current) use of insulin; Z79.01 Long term (current) use of anticoagulants; Z79.84 Long term (current) use of oral hypoglycemic drugs; Z86.711 Personal history of pulmonary embolism; Z91.14 Patient's other noncompliance with medication regimen
CPT/HCPCS: 36415; 71046; 80048; 80053; 82009; 82803; 83036; 83735; 84484; 85025; 85379; 85610; 85730; 93005; 93306; 94760

== ENCOUNTER → 2022-03-12 | Outpatient (CLI) | payer MEDICARE, BC ==
--- NOTE | 2022-03-12 13:43 | CT ---
EXAMINATION TYPE: CT soft tissue neck wo con DATE OF EXAM: 03/12/2022 COMPARISON: none HISTORY: pt states she was told her had a polyp in her esophagus CT DLP: [address] of the neck was performed from the skull base through the lung apices. Lack of cont rast limits evaluation. AIRWAY: The supraglottic, glottic, and subglottic portions of the airway appear patent and free of mass. SALIVARY GLANDS: The submandibular and parotid glands are free of mass or inflammatory process. THYROID GLAND: No nodules or masses seen. LYMPH NODES: No adenopathy seen greater than 1cm. LUNG APICES: No nodule or mass is seen. OTHER: Severe atheromatous change carotid vessels. 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 Moderate degenerative change of the cervical spine. No abscess seen. IMPRESSION: No significant abnormality the neck although as noted. 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
== END | disposition home or self-care (01) ==
LOC: RADCTMAIN 13:05
PROVIDERS: ATTEND Family Medicine
DX: M48.02 Spinal stenosis, cervical region (principal); K22.81 Esophageal polyp
CPT/HCPCS: 70490

== ENCOUNTER 2024-01-18 12:05 | Inpatient (IN) | payer MEDICARE, BC ==
--- NOTE | 2024-01-18 12:35 | ED ---
General Adult HPI - General Chief complaint: Fall Stated complaint: Weakness Time Seen by Provider: 01/18/24 12:06 Source: patient, EMS, RN notes reviewed Mode of arrival: EMS Limitations: no limitations - History of Present Illness Initial comments: Patient is a 68-year-old female presenting to the emergency department with concerns for weakness. Patient did have a fall 2 days ago, no other falls. Patient feels a little bit off balance and that her right side is weak. Patient denies any chest pain. No dyspnea. No head injury or loss of consciousness. - Related Data Home Medications Medication Instructions Recorded Confirmed Semaglutide [Ozempic] 1 mg SQ Q7D 02/27/22 01/18/24 lisinopriL [Zestril] 20 mg PO DAILY 02/27/22 01/18/24 Escitalopram [Lexapro] 10 mg PO DAILY 07/08/23 01/18/24 Aspirin EC [Ecotrin Low Dose] 81 mg PO DAILY 01/18/24 01/18/24 Cholecalciferol [Vitamin D3 (25 25 mcg PO DAILY 01/18/24 01/18/24 Mcg = 1000 Iu)] Dapagliflozin Propanediol [Farxiga] 10 mg PO DAILY 01/18/24 01/18/24 Insulin Glargine,Hum.rec.anlog 35 units SQ DAILY 01/18/24 01/18/24 [Tosarahi Solostmalu] Pioglitazone [Actos] 15 mg PO DAILY 01/18/24 01/18/24 Rosuvastatin Calcium [Crestor] 40 mg PO DAILY 01/18/24 01/18/24 carvediloL [Coreg] 12.5 mg PO BID 01/18/24 01/18/24 Previous Rx's Medication Instructions Recorded Clopidogrel [Plavix] 75 mg PO DAILY 30 Days #30 tab 07/10/23 Allergies Allergy/AdvReac Type Severity Reaction Status Date / Time No Known Allergies Allergy Verified 01/18/24 14:47 Review of Systems ROS Statement: Those systems with pertinent positive or pertinent negative responses have been documented in the HPI. ROS Other: All systems not noted in ROS Statement are negative. Constitutional: Denies: fever Eyes: Denies: eye pain ENT: Denies: ear pain Respiratory: Denies: dyspnea Cardiovascular: Denies: chest pain Neurological: Reports: as per HPI, weakness. Denies: headache, confusion Past Medical History Past Medical History: Coronary Artery Disease (CAD), Diabetes Mellitus, Hyperlipidemia, Hypertension, Vascular Disorder Additional Past Medical History / Comment(s): neuropathy, stents in bilat legs History of Any Multi-Drug Resistant Organisms: None Reported Past Surgical History: Coronary Bypass/CABG, Heart Catheterization, Orthopedic Surgery Additional Past Surgical History / Comment(s): triple bypass 2013 Past Anesthesia/Blood Transfusion Reactions: No Reported Reaction Past Psychological History: No Psychological Hx Reported Smoking Status: Current every day smoker Past Alcohol Use History: Occasional Past Drug Use History: Marijuana - Past Family History Father Family Medical History: Coronary Artery Disease (CAD) Mother Family Medical History: Diabetes Mellitus General Exam Limitations: no limitations General appearance: alert, in no apparent distress Eye exam: Present: normal appearance, PERRL, EOMI ENT exam: Present: normal oropharynx Neck exam: Present: normal inspection Respiratory exam: Present: normal lung sounds bilaterally Cardiovascular Exam: Present: regular rate, normal rhythm GI/Abdominal exam: Present: soft. Absent: tenderness Extremities exam: Present: normal inspection, full ROM. Absent: tenderness Neurological exam: Present: alert, oriented X3, CN II-XII intact. Absent: motor sensory deficit Expanded Neurological exam: Present: protecting the airway Patient oriented to: Present: person, place, time Speech: Present: fluid speech Cranial nerves: EOM's Intact: Normal Sensory exam: Upper Extremity Light Touch: Normal, Lower Extremity Light Touch: Normal Motor strength exam: RUE: 5, LUE: 5, RLE: 5, LLE: 5 Eye Response: (4) open spontaneously Motor Response: (6) obeys commands Verbal Response: (5) oriented Psychiatric exam: Present: normal affect, normal mood Skin exam: Present: normal color Course Vital Signs 01/18/24 01/18/24 01/18/24 12:06 13:30 14:35 Temperature 97.8 F Pulse Rate 65 67 67 Respiratory 18 18 18 Rate Blood Pressure 115/78 115/78 134/64 O2 Sat by Pulse 94 L 98 98 Oximetry EKG Findings - EKG Results: EKG: interpreted by ERMD (Waves V1 V2. Lateral T wave inversion.), sinus rhythm, normal axis Medical Decision Making - Medical Decision Making Was pt. sent in by a medical professional or institution (, PA, PARCEL CARRIER, urgent care, hospital, or senior living...) When possible be specific @ -No Did you speak to anyone other than the patient for history (EMS, parent, family, police, friend...)? What history was obtained from this source @ -Daughter arrives later and states patient's symptoms are actually on the left side Did you review nursing and triage notes (agree or disagree)? Why? @ -I reviewed and agree with nursing and triage notes Were old charts reviewed (outside hosp., previous admission, EMS record, old EKG, old radiological studies, urgent care reports/EKG's, senior living records)? Report findings @ -No old charts were reviewed Differential Diagnosis (chest pain, altered mental status, abdominal pain women, abdominal pain men, vaginal bleeding, weakness, fever, dyspnea, syncope, hea dache, dizziness, GI bleed, back pain, seizure, CVA, palpatations, mental health, musculoskeletal)? @ -Differential Weakness: Hypoglycemia, shock, sepsis, hyponatremia, anemia, infection, NC, ETOH, adverse medicine reaction, overdose, stroke, this is not meant to be an all-inclusive list. EKG interpreted by me (3pts min.). @ -As above X-rays interpreted by me (1pt min.). @ -Chest x-ray shows no acute process CT interpreted by me (1pt min.). @ -CT brain shows subacute infarct right frontal U/S interpreted by me (1pt. min.). @ -None done What testing was considered but not performed or refused? (CT, X-rays, U/S, labs)? Why? @ -None What meds were considered but not given or refused? Why? @ -Patient not considered candidate for thrombolytics secondary to last known well greater than 4.5 hours. Risks are felt to outweigh the benefits. Did you discuss the management of the patient with other professionals (professionals i.e. , PA, PARCEL CARRIER, lab, RT, psych nurse, social media content manager, anode crew supervisor, teacher, conservation officer, welfare case worker)? Give summary @ -Case was discussed with Dr. Verma who will admit his patient Was smoking cessation discussed for >3mins.? @ -No Was critical care preformed (if so, how long)? @ -No Were there social determinants of health that impacted care today? How? (H omelessness, low income, unemployed, alcoholism, drug addiction, transportation, low edu. Level, literacy, decrease access to med. care, [facility], rehab)? @ -No Was there de-escalation of care discussed even if they declined (Discuss DNR or withdrawal of care, Hospice)? DNR status @ -No What co-morbidities impacted this encounter? (DM, HTN, Smoking, COPD, CAD, Cancer, CVA, ARF, Chemo, Hep., AIDS, mental health diagnosis, sleep apnea, morbid obesity)? @ -None Was patient admitted / discharged? Hospital course, mention meds given and route, prescriptions, significant lab abnormalities, going to OR and other pertinent info. @ -Patient presents with weakness. No weakness on exam. CT scan concerning for subacute infarct. Patient will be admitted with neuro consult, admission orders written. Patient and family updated. Undiagnosed new problem with uncertain prognosis? @ -No Drug Therapy requiring intensive monitoring for toxicity (Heparin, Nitro, Insulin, Cardizem)? @ -No Were any procedures done? @ -No Diagnosis/symptom? @ -CVA Acute, or Chronic, or Acute on Chronic? @ -Acute Uncomplicated (without systemic symptoms) or Complicated (systemic symptoms)? @ -Default Side effects of treatment? @ -No Exacerbation, Progression, or Severe Exacerbation? @ -No Poses a threat to life or bodily function? How? (Chest pain, USA, NC, pneumonia, PE, COPD, DKA, ARF, appy, cholecystitis, CVA, Diverticulitis, Homicidal, Suicidal, threat to staff... and all critical care pts) @ -No - Lab Data Result diagrams: 01/18/24 12:37 01/18/24 12:37 Lab Results 01/18/24 01/18/24 01/18/24 Range/Units 12:37 12:37 12:37 WBC 12.5 H (3.8-10.6) k/uL RBC 5.57 H (3.80-5.40) m/uL Hgb 16.7 H (11.4-16.0) gm/dL Hct 49.9 H (34.0-46.0) % MCV 89.6 (80.0-100.0) fL MCH 30.1 (25.0-35.0) pg MCHC 33.5 (31.0-37.0) g/dL RDW 13.3 (11.5-15.5) % Plt Count 201 (150-450) k/uL MPV 8.9 Neutrophils % 63 % Lymphocytes % 28 % Monocytes % 6 % Eosinophils % 1 % Basophils % 0 % Neutrophils # 7.8 H (1.3-7.7) k/uL Lymphocytes # 3.5 (1.0-4.8) k/uL Monocytes # 0.8 (0-1.0) k/uL Eosinophils # 0.1 (0-0.7) k/uL Basophils # 0.0 (0-0.2) k/uL PT 10.1 (10.0-12.5) sec INR 0.9 (<1.2) APTT 19.7 L (22.0-30.0) sec Sodium 136 L (137-145) mmol/L Potassium 2.8 L (3.5-5.1) mmol/L Chloride 94 L (98-107) mmol/L Carbon Dioxide 34 H (22-30) mmol/L Anion Gap 8 mmol/L BUN 23 H (7-17) mg/dL Creatinine 0.68 (0.52-1.04) mg/dL Est GFR (CKD-EPI)AfAm >90 (>60 ml/min/1.73 sqM) Est GFR (CKD-EPI)NonAf >90 (>60 ml/min/1.73 sqM) Glucose 92 (74-99) mg/dL Plasma Lactic Acid Sixto (0.7-2.0) mmol/L Calcium 9.8 (8.4-10.2) mg/dL Phosphorus 4.3 (2.5-4.5) mg/dL Total Bilirubin 0.7 (0.2-1.3) mg/dL AST 24 (14-36) U/L ALT 19 (4-34) U/L Alkaline Phosphatase 88 (38-126) U/L Troponin I (0.000-0.034) ng/mL Total Protein 7.4 (6.3-8.2) g/dL Albumin 4.1 (3.5-5.0) g/dL TSH 0.847 (0.465-4.680) mIU/L Free T4 1.09 (0.78-2.19) ng/dL Urine Color Urine Appearance (Clear) Urine pH (5.0-8.0) Ur Specific [place] (1.001-1.035) Urine Protein (Negative) Urine Glucose (UA) (Negative) Urine Ketones (Negative) Urine Blood (Negative) Urine Nitrite (Negative) Urine Bilirubin (Negative) Urine Urobilinogen (<2.0) mg/dL Ur Leukocyte Esterase (Negative) Urine RBC (0-5) /hpf Urine WBC (0-5) /hpf Ur Squamous Epith Cells (0-4) /hpf Amorphous Sediment (None) /hpf Hyaline Casts (0-2) /lpf Urine Mucus (None) /hpf 01/18/24 01/18/24 01/18/24 Range/Units 12:37 12:37 12:37 WBC (3.8-10.6) k/uL RBC (3.80-5.40) m/uL Hgb (11.4-16.0) gm/dL Hct (34.0-46.0) % MCV (80.0-100.0) fL MCH (25.0-35.0) pg MCHC (31.0-37.0) g/dL RDW (11.5-15.5) % Plt Count (150-450) k/uL MPV Neutrophils % % Lymphocytes % % Monocytes % % Eosinophils % % Basophils % % Neutrophils # (1.3-7.7) k/uL Lymphocytes # (1.0-4.8) k/uL Monocytes # (0-1.0) k/uL Eosinophils # (0-0.7) k/uL Basophils # (0-0.2) k/uL PT (10.0-12.5) sec INR (<1.2) APTT (22.0-30.0) sec Sodium (137-145) mmol/L Potassium (3.5-5.1) mmol/L Chloride (98-107) mmol/L Carbon Dioxide (22-30) mmol/L Anion Gap mmol/L BUN (7-17) mg/dL Creatinine (0.52-1.04) mg/dL Est GFR (CKD-EPI)AfAm (>60 ml/min/1.73 sqM) Est GFR (CKD-EPI)NonAf (>60 ml/min/1.73 sqM) Glucose (74-99) mg/dL Plasma Lactic Acid Sixto 1.9 (0.7-2.0) mmol/L Calcium (8.4-10.2) mg/dL Phosphorus (2.5-4.5) mg/dL Total Bilirubin (0.2-1.3) mg/dL AST (14-36) U/L ALT (4-34) U/L Alkaline Phosphatase (38-126) U/L Troponin I 0.025 (0.000-0.034) ng/mL Total Protein (6.3-8.2) g/dL Albumin (3.5-5.0) g/dL TSH (0.465-4.680) mIU/L Free T4 (0.78-2.19) ng/dL Urine Color Yellow Urine Appearance Cloudy H (Clear) Urine pH 6.0 (5.0-8.0) Ur Specific [place] 1.025 (1.001-1.035) Urine Protein 3+ H (Negative) Urine Glucose (UA) 4+ H (Negative) Urine Ketones 1+ H (Negative) Urine Blood Trace H (Negative) Urine Nitrite Negative (Negative) Urine Bilirubin 1+ H (Negative) Urine Urobilinogen 2.0 (<2.0) mg/dL Ur Leukocyte Esterase Trace H (Negative) Urine RBC 3 (0-5) /hpf Urine WBC 10 H (0-5) /hpf Ur Squamous Epith Cells 15 H (0-4) /hpf Amorphous Sediment Rare H (None) /hpf Hyaline Casts 131 H (0-2) /lpf Urine Mucus Many H (None) /hpf Disposition Clinical Impression: CVA (cerebral vascular accident) Disposition: ADMITTED IP TO THIS HOSP Is patient prescribed a controlled substance at d/c from ED?: No Referrals: Amish Verma DO [Primary Care Provider] - 1-2 days Time of Disposition: 15:55
[2024-01-18 12:54] LABS: Basophils % (A) 0 %; Eosinophils # (A) 0.1 k/uL (0-0.7); Eosinophils % (A) 1 %; HCT 49.9 % (34.0-46.0); HGB 16.7 gm/dL (11.4-16.0); Lymphocytes # (A) 3.5 k/uL (1.0-4.8); Lymphocytes % (A) 28 %; MCH 30.1 pg (25.0-35.0); MCHC 33.5 g/dL (31.0-37.0); MCV 89.6 fL (80.0-100.0); Mean Platelet Volume 8.9; Monocytes # (A) 0.8 k/uL (0-1.0); Monocytes % (A) 6 %; Neutrophils # (A) 7.8 k/uL (1.3-7.7); Neutrophils % (A) 63 %; Platelet Count 201 k/uL (150-450); RBC 5.57 m/uL (3.80-5.40); RDW 13.3 % (11.5-15.5); WBC 12.5 k/uL (3.8-10.6)
[2024-01-18 13:14] LABS: INR 0.9 (<1.2); Prothrombin Time 10.1 sec (10.0-12.5)
[2024-01-18 13:19] LABS: Partial Thromboplastin Time 19.7 sec (22.0-30.0)
[2024-01-18 13:20] LABS: ALT 19 U/L (4-34); AST 24 U/L (14-36); African American GFR (CKD) >90 (>60 ml/min/1.73 sqM); Albumin 4.1 g/dL (3.5-5.0); Alkaline Phosphatase 88 U/L (38-126); Anion Gap 8 mmol/L; Blood Urea Nitrogen 23 mg/dL (7-17); Calcium 9.8 mg/dL (8.4-10.2); Carbon Dioxide 34 mmol/L (22-30); Chloride 94 mmol/L (98-107); Glucose 92 mg/dL (74-99); Non-African American GFR(CKD) >90 (>60 ml/min/1.73 sqM); Phosphorus 4.3 mg/dL (2.5-4.5); Potassium 2.8 mmol/L (3.5-5.1); Sodium 136 mmol/L (137-145); Total Bilirubin 0.7 mg/dL (0.2-1.3); Total Protein 7.4 g/dL (6.3-8.2)
--- NOTE | 2024-01-18 13:23 | CT ---
EXAMINATION TYPE: CT brain wo con CT DLP: 1125.4 mGycm, Automated exposure control for dose reduction was used. DATE OF EXAM: 01/18/2024 1:18 PM COMPARISON: CT brain 07/08/2023, CT brain C-spine 07/18/2021 CLINICAL INDICATION:Female, 68 years old with history of weakness, Weakness TECHNIQUE: Brain: Multiple axial CT images of the brain were obtained without IV contrast. . Coronal and sagitta l reformats reviewed. FINDINGS: Brain: Extra-axial spaces: No abnormal extra-axial fluid collections. Ventricular system: Within normal limits Cerebral parenchyma: No acute intraparenchymal hemorrhage or mass effect. Remote injury within the l eft frontal lobe. New region of low attenuation within the medial aspect of the right frontal lobe co mpared to prior CT. This demonstrates loss of goodwin-white differentiation. The remaining goodwin-white ju nction is well differentiated. Scattered hypoattenuating areas are seen within the periventricular wh ite matter. Cerebellum: Unremarkable. Mass effect: No evidence of midline shift. Intracranial vasculature: Atherosclerotic calcifications of the intracranial vessels. Soft tissues: Normal. Calvarium/osseous structures: No depressed skull fracture. Paranasal sinuses and mastoid air cells: The mastoid air cells are clear. Minimal mucosal thickening of the sphenoid sinuses. The remaining paranasal sinuses are clear. Visualized orbits: Bilateral aphakia IMPRESSION: 1. Findings suspicious for acute/subacute ischemia involving the medial aspect of the right frontal lobe in the SELENA distribution. 2. Remote injury to the left frontal lobe with encephalomalacia. 3. Nonspecific white matter changes likely related to chronic small vessel ischemic disease. Findings called to and discussed with Dr. Blair at 1:20 PM on 01/18/2024. [facility], , 01/18/2024 1:20 PM
--- NOTE | 2024-01-18 13:44 | XR ---
EXAMINATION TYPE: XR chest 2V DATE OF EXAM: 01/18/2024 1:11 PM COMPARISON: Chest radiographs from 07/08/2023 CLINICAL INDICATION: Female, 68 years old with history of Weakness; TECHNIQUE: XR chest 2V Frontal and lateral views of the chest. FINDINGS: Lungs/Pleura: There is no evidence of pleural effusion, focal consolidation, or pneumothorax. Pulmonary vascularity: Unremarkable. Heart/mediastinum: Cardiomediastinal silhouette is unremarkable. Musculoskeletal: No acute osseous pathology. Midline sternotomy wires are noted. IMPRESSION: No acute cardiopulmonary disease/process. [facility], , 01/18/2024 1:41 PM
[2024-01-18 13:56] LABS: Amorphous Sediment,Urine Rare /hpf; Appearance,Urine Cloudy (Clear); Bilirubin,Urine 1+ (Negative); Blood,Urine Trace (Negative); Color,Urine Yellow; Glucose,Urine (UA) 4+ (Negative); Hyaline Casts,Urine 131 /lpf (0-2); Ketones,Urine 1+ (Negative); Leukocyte Esterase,Urine Trace (Negative); Mucus,Urine Many /hpf; Nitrite,Urine Negative (Negative); Protein,Urine 3+ (Negative); RBC,Urine 3 /hpf (0-5); Specific Gravity,Urine 1.025 (1.001-1.035); Squamous Epithelial Cell,Urine 15 /hpf (0-4); WBC,Urine 10 /hpf (0-5)
[2024-01-18 14:03] LABS: T4, Free (Free Thyroxine) 1.09 ng/dL (0.78-2.19)
[2024-01-18] MEDS: ASPIRIN 325 MG TAB PO STA (16:57)
[2024-01-18] MEDS: SODIUM CHLORIDE 0.9% 1,000 ML IV SCH (16:59)
--- NOTE | 2024-01-18 17:34 | US ---
EXAMINATION TYPE: US carotid duplex BILAT DATE OF EXAM: 01/18/2024 COMPARISON: NONE CLINICAL INDICATION: Female, 68 years old with history of Stenosis; Stenosis per order. Additional History: .... TECHNIQUE: Grayscale, color Doppler and spectral Doppler evaluation of the bilateral carotid systems and vertebral arteries. Indirect Doppler criteria was utilized. FINDINGS: EXAM MEASUREMENTS: RIGHT: Peak Systolic Velocity (PSV) cm/sec ----- Right CCA: 80.1 ----- Right ICA: 176.6 ----- Right ECA: 111.8 ICA/CCA ratio: 2.2 RIGHT: End Diastole cm/sec ----- Right CCA: 21.9 ----- Right ICA: 48.5 ----- Right ECA: 0.0 LEFT: Peak Systolic Velocity (PSV) cm/sec ----- Left CCA: 55.4 ----- Left ICA: No flow seen in ICA ----- Left ECA: 9.7 ICA/CCA ratio: No flow seen in ICA LEFT: End Diastole cm/sec ----- Left CCA: 0.0 ----- Left ICA: No flow seen in ICA ----- Left ECA: 9.7 VERTEBRALS (direction of flow): Right Vertebral: Antegrade Left Vertebral: Antegrade Rhythm: Normal RETURNED MATERIALS INSPECTOR NOTES: Color flow not seen in left ICA, no change from prior. *Narrowing and color defect seen within right ICA. *Elevated velocity within right ICA and left ECA. The right ICA velocity is slightly diminished from the comparison study which could indicate progress ion from severe to critical stenosis. Plaque seen within bilateral carotid systems. IMPRESSION: Extensive atheromatous plaquing with severe stenosis. Right: Severe to critical stenosis right internal carotid artery Left: Left internal carotid artery occlusion, present previously. Criteria for Assigning % of Stenosis / Diameter reduction (Estimation based on the indirect measurements of the internal carotid artery velocities (ICA PSV). 1. Normal (no stenosis)=ICA PSV < 125 cm/s: ratio < 2.0: ICA EDV<40 cm/s. 2. Less than 50% stenosis=ICA PSV < 125 cm/s: ratio < 2.0: ICA EDV<40 cm/s. 3. 50 to 69% stenosis=ICA PSV of 125 to 230 cm/s: ration 2.0 ? 4.0: ICA EDV 40-100 cm/s. 4. Greater than 70% stenosis to near occlusion= ICA PSV > 230 cm/s: ratio > 4.0: ICA EDV > 100 cm/s. 5. Near occlusion= ICA PSV velocities may be low or undetectable: variable ratio and ICA EDV. 6. Total occlusion=unable to detect flow. [facility], Workstation: [facility], 01/18/2024 5:31 PM
[2024-01-18] MEDS: ACETAMINOPHEN TAB 325 MG TAB PO STA (17:36)
[2024-01-18] MEDS: carvediloL 12.5 MG TAB PO SCH (17:36)
--- NOTE | 2024-01-18 19:05 | P.CNNES ---
History of Present Illness Consult date: 01/18/24 Requesting physician: Asif Nguyen Reason for Consult: cva History of Present Illness: This is a 68-year-old woman with history of stroke who presented emergency department because of right sided weakness. Patient stated that her symptoms began yesterday at night and she felt like she was having mild right-sided weakness and today she felt her weakness was significant and she could hardly get up and she had to crawl. Patient states that she had multiple strokes in the past and she is on aspirin 81 mg, Plavix 75 mg and Lipitor. She does acknowledge that she has left ICA blockage and she states that she has no sten osis or blockages over the right side. Not sure who she follows up with regarding the carotid stenosis but she thinks is her torpedo man. She states regarding her old stroke she has no deficits. She denies any history of atrial fibrillation. Some of the workup during this hospital visit consisted of: I reviewed the labs CT of the head is reported as finding suspicious for acute/subacute ischemic involving the medial aspect of the right frontal lobe in the SELENA distribution. Remote injury in the left frontal lobe with encephalomalacia. I personally reviewed the CT and I agree it seems somewhat subacute to acute over the right frontal. Car duplex is reported as extensive atheromatous plaquing with severe stenosis. Right severe to critical stenosis over the right internal carotid artery. Left internal carotid artery occlusion, present previously. Review of Systems per HPI. Past Medical History Past Medical History: Coronary Artery Disease (CAD), Diabetes Mellitus, Hyperlipidemia, Hypertension, Vascular Disorder Additional Past Medical History / Comment(s): neuropathy, stents in bilat legs History of Any Multi-Drug Resistant Organisms: None Reported Past Surgical History: Coronary Bypass/CABG, Heart Catheterization, Orthopedic Surgery Additional Past Surgical History / Comment(s): triple bypass 2012 Past Anesthesia/Blood Transfusion Reactions: No Reported Reaction Past Psychological History: No Psychological Hx Reported Smoking Status: Current every day smoker Past Alcohol Use History: Occasional Past Drug Use History: Marijuana - Past Family History Father Family Medical History: Coronary Artery Disease (CAD) Mother Family Medical History: Diabetes Mellitus Medications and Allergies Home Medications Medication Instructions Recorded Confirmed Type Semaglutide [Ozempic] 1 mg SQ Q7D 02/27/22 01/18/24 History lisinopriL [Zestril] 20 mg PO DAILY 02/27/22 01/18/24 History Escitalopram [Lexapro] 10 mg PO DAILY 07/08/23 01/18/24 History Clopidogrel [Plavix] 75 mg PO DAILY 30 Days #30 tab 07/10/23 01/18/24 Rx Aspirin EC [Ecotrin Low Dose] 81 mg PO DAILY 01/18/24 01/18/24 History Cholecalciferol [Vitamin D3 (25 25 mcg PO DAILY 01/18/24 01/18/24 History Mcg = 1000 Iu)] Dapagliflozin Propanediol [Farxiga] 10 mg PO DAILY 01/18/24 01/18/24 History Insulin Glargine,Hum.rec.anlog 35 units SQ DAILY 01/18/24 01/18/24 History [Toujeo Solostar] Pioglitazone [Actos] 15 mg PO DAILY 01/18/24 01/18/24 History Rosuvastatin Calcium [Crestor] 40 mg PO DAILY 01/18/24 01/18/24 History carvediloL [Coreg] 12.5 mg PO BID 01/18/24 01/18/24 History Allergies Allergy/AdvReac Type Severity Reaction Status Date / Time No Known Allergies Allergy Verified 01/18/24 14:47 Physical Examination - Vital Signs Vital Signs: Vital Signs Temp Pulse Resp BP Pulse Ox 01/18/24 18:36 98.1 F 68 20 142/72 96 01/18/24 16:56 75 18 155/76 96 01/18/24 14:35 67 18 134/64 98 01/18/24 13:30 67 18 115/78 98 01/18/24 12:06 97.8 F 65 18 115/78 94 L Intake and Output 01/18/24 01/18/24 01/18/24 06:59 14:59 22:59 Other: Weight 62.596 kg GENERAL: The patient is lying in bed and is not in acute distress. NEUROLOGICAL: Higher mental function: The patient is awake, alert, oriented to self, place and time. Patient is following commands. No aphasia and no neglect. Cranial nerves: The pupils are round, equal and reactive to light and accomm odation. Visual melvin are full to confrontation throughout. Extraocular movement is intact no nystagmus is noted. Facial sensation is normal to touch throughout. The facial strength is normal throughout. Hearing is normal bilaterally to hand rub. Tongue is midline and moved [id number] without any difficulty. No dysarthria is noted. Shoulder shrug is normal bilaterally. Motor: The strength is right upper extremity is 5 out of 5, right lower extremity is about 5 - to 4+ out of 5. Left upper extremity is about a 4-4+ left lower extremity is also 4 to 4+ out of 5. Normal tone and bulk. Cerebellum: Normal finger to nose bilaterally. Sensation: Sensation is normal to touch throughout. Plantars are mute bilaterally. Results - Laboratory Findings CBC and BMP: 01/18/24 12:37 01/18/24 12:37 Abnormal Lab Findings: Abnormal Labs 01/18/24 01/18/24 01/18/24 12:37 12:37 12:37 WBC 12.5 H RBC 5.57 H Hgb 16.7 H Hct 49.9 H Neutrophils # 7.8 H APTT 19.7 L Sodium 136 L Potassium 2.8 L Chloride 94 L Carbon Dioxide 34 H BUN 23 H Urine Appearance Urine Protein Urine Glucose (UA) Urine Ketones Urine Blood Urine Bilirubin Ur Leukocyte Esterase Urine WBC Ur Squamous Epith Cells Amorphous Sediment Hyaline Casts Urine Mucus 01/18/24 12:37 WBC RBC Hgb Hct Neutrophils # APTT Sodium Potassium Chloride Carbon Dioxide BUN Urine Appearance Cloudy H Urine Protein 3+ H Urine Glucose (UA) 4+ H Urine Ketones 1+ H Urine Blood Trace H Urine Bilirubin 1+ H Ur Leukocyte Esterase Trace H Urine WBC 10 H Ur Squamous Epith Cells 15 H Amorphous Sediment Rare H Hyaline Casts 131 H Urine Mucus Many H Assessment and Plan Assessment: This is a 68-year-old woman with history of stroke, left carotid occlusion who presented emergency department because of right sided weakness that she noticed her weakness yesterday at night and that was mild but today she felt the weakness was severe and she had a hard time getting up. On examination I felt that the patient had left-sided weakness and she did acknowledge that the left side is weak and is new compared to the right. CT of the head shows acute to subacute ischemic stroke suspicious over the right frontal. Acute ischemic stroke and it seems over the right frontal and on examination she had left-sided weakness. No IV thrombolytic since outside the window and the risk with the benefit. Likely etiology of stroke is symptomatic carotid stenosis. Severe stenosis over the right ICA carotid duplex and this seems symptomatic History of left ICA occlusion History of old stroke Diabetes mellitus Hypertension Tobacco use Plan: Patient is on aspirin 81 mg, Plavix 75 mg at home and since the patient has strokelike symptoms she failed her medication and I will stop the Plavix and s tart her on Brilinta with 180 mg loading dose then after that 90 mg twice daily. Patient is on Lipitor 80 mg daily and that sufficient for secondary stroke prophylaxis I ordered MRI of the brain I ordered CT angiography of the neck. Consulted vascular surgery team for the carotid stenosis 2D echo, lipid panel are ordered and pending Continue neurochecks Cardiac monitoring PT OT and 3D SPECIALIST are consulted Patient was counseled on tobacco cessation Will defer the rest of the medical management to primary team and other specialist. For DVT prophylaxis I started the patient on subcu heparin Plan discussed with the patient. Thank you for the consultation. Time with Patient: Greater than 30
[2024-01-18] MEDS: TICAGRELOR 90 MG TAB PO STA (20:15)
[2024-01-18] MEDS: HEPARIN SODIUM,PORCINE 5,000 UNIT/ML 1 ML VIAL SQ SCH (20:15)
[2024-01-19] MEDS: cefTRIAXone IN SWFI 1,000 MG/10 ML SYRINGE IVP STA (05:48)
[2024-01-19] MEDS: ONDANSETRON 4 MG TAB PO PRN (05:49)
[2024-01-19 06:08] LABS: Basophils % (A) 0 %; Eosinophils # (A) 0.2 k/uL (0-0.7); Eosinophils % (A) 2 %; HCT 45.7 % (34.0-46.0); HGB 15.1 gm/dL (11.4-16.0); Lymphocytes # (A) 2.7 k/uL (1.0-4.8); Lymphocytes % (A) 30 %; MCV 90.9 fL (80.0-100.0); Mean Platelet Volume 7.9; Monocytes # (A) 0.7 k/uL (0-1.0); Monocytes % (A) 8 %; Neutrophils # (A) 5.3 k/uL (1.3-7.7); Neutrophils % (A) 58 %; Platelet Count 225 k/uL (150-450); RBC 5.03 m/uL (3.80-5.40); RDW 12.9 % (11.5-15.5); WBC 9.1 k/uL (3.8-10.6)
[2024-01-19 06:18] LABS: ALT 18 U/L (4-34); AST 33 U/L (14-36); African American GFR (CKD) >90 (>60 ml/min/1.73 sqM); Albumin 3.1 g/dL (3.5-5.0); Alkaline Phosphatase 76 U/L (38-126); Anion Gap 3 mmol/L; Blood Urea Nitrogen 23 mg/dL (7-17); Calcium 8.9 mg/dL (8.4-10.2); Carbon Dioxide 29 mmol/L (22-30); Chloride 103 mmol/L (98-107); Glucose 113 mg/dL (74-99); Non-African American GFR(CKD) >90 (>60 ml/min/1.73 sqM); Sodium 135 mmol/L (137-145); Total Bilirubin 0.6 mg/dL (0.2-1.3); Total Protein 5.8 g/dL (6.3-8.2)
[2024-01-19 06:20] LABS: Potassium 2.6 mmol/L (3.5-5.1)
[2024-01-19] MEDS ORDERED: Potassium Replacement Protocol 1 EACH MISC MISCELLANE PRN (06:22)
[2024-01-19] MEDS: POTASSIUM CHLORIDE 10 MEQ in WATER FOR INJECTION 1 100ML.BAG IVPB SCH (06:58)
[2024-01-19] MEDS: POTASSIUM CHLORIDE ER 20 MEQ TAB.ER PO STA ×2 (06:58→17:04)
[2024-01-19 07:45] LABS: Glucose,Whole Blood 106 mg/dL (70-110)
[2024-01-19] MEDS: PIOGLITAZONE 15 MG TAB PO SCH (08:52)
[2024-01-19] MEDS: lisinopriL 20 MG TAB PO SCH (08:53)
[2024-01-19] MEDS: INSULIN DETEMIR (LEVEMIR) 100 UNIT/ML SYR SQ SCH (08:53)
[2024-01-19] MEDS: ESCITALOPRAM 10 MG TAB PO SCH (08:53)
[2024-01-19] MEDS: ATORVASTATIN 80 MG TAB PO SCH (08:53)
[2024-01-19] MEDS: ASPIRIN 81 MG PO SCH (08:53)
[2024-01-19] MEDS: DAPAGLIFLOZIN PROPANEDIOL 10 MG TABLET PO SCH (08:53)
[2024-01-19] MEDS: CHOLECALCIFEROL 25 MCG (1000 IU) TABLET PO SCH (08:53)
[2024-01-19] MEDS: TICAGRELOR 90 MG TAB PO SCH (08:53)
[2024-01-19] MEDS ORDERED: ASPIRIN 325 MG TAB PO SCH (09:00)
[2024-01-19] MEDS ORDERED: CLOPIDOGREL 75 MG TAB PO SCH (09:00)
--- NOTE | 2024-01-19 11:19 | P.GSCN ---
History of Present Illness Consult date: 01/19/24 Reason for Consult: Carotid stenosis Requesting physician: Jae Phelps History of present illness: This is a pleasant 68-year-old female with past medical history including coronary artery disease status post CABG, diabetes mellitus, hypertension, hyperlipidemia, peripheral arterial disease status post stents, stroke with multiple TIAs, left carotid occlusion and current daily smoker who presented to the emergency department for reported fall. Patient is poor historian and is not sure why she came to the hospital or what symptoms she had. According to the patient's chart she had sustained a couple falls in the last few days and is reporting right sided weakness. Patient denies any difficulty with her speech, no difficulty swallowing and no visual changes. She is currently sitting up in bed eating without any difficulty. Speech therapist is at the bedside for evaluation. She denies any focal deficits at this time. She is right-hand dominant. She had a workup for stroke with a brain CT showing acute/subacute ischemic stroke of the right frontal lobe with remote injury to the left frontal lobe with encephalomalacia. Further workup included a carotid duplex that reported left ICA occlusion and severe right ICA stenosis. Vascular surgery was consulted for ICA stenosis. She had a CTA of the head and neck that is currently pending. Patient was maintained on aspirin 81 mg daily, Plavix 75 mg daily and rosuvastatin 40 mg daily, however patient's family was stating that she was not taking her medications for unclear duration. Review of Systems A 14 point review systems was completed all pertinent positives and negatives as stated in the HPI. Past Medical History Past Medical History: Coronary Artery Disease (CAD), Diabetes Mellitus, Hyperlipidemia, Hypertension, Vascular Disorder Additional Past Medical History / Comment(s): neuropathy, stents in bilat legs History of Any Multi-Drug Resistant Organisms: None Reported Past Surgical History: Coronary Bypass/CABG, Heart Catheterization, Orthopedic Surgery Additional Past Surgical History / Comment(s): triple bypass 2012 Past Anesthesia/Blood Transfusion Reactions: No Reported Reaction Past Psychological History: No Psychological Hx Reported Smoking Status: Current every day smoker Past Alcohol Use History: Occasional Past Drug Use History: Marijuana - Past Family History Father Family Medical History: Coronary Artery Disease (CAD) Mother Family Medical History: Diabetes Mellitus Medications and Allergies Home Medications Medication Instructions Recorded Confirmed Type Semaglutide [Ozempic] 1 mg SQ Q7D 02/27/22 01/18/24 History lisinopriL [Zestril] 20 mg PO DAILY 02/27/22 01/18/24 History Escitalopram [Lexapro] 10 mg PO DAILY 07/08/23 01/18/24 History Clopidogrel [Plavix] 75 mg PO DAILY 30 Days #30 tab 07/10/23 01/18/24 Rx Aspirin EC [Ecotrin Low Dose] 81 mg PO DAILY 01/18/24 01/18/24 History Cholecalciferol [Vitamin D3 (25 25 mcg PO DAILY 01/18/24 01/18/24 History Mcg = 1000 Iu)] Dapagliflozin Propanediol [Farxiga] 10 mg PO DAILY 01/18/24 01/18/24 History Insulin Glargine,Hum.rec.anlog 35 units SQ DAILY 01/18/24 01/18/24 History [Toujeo Solostar] Pioglitazone [Actos] 15 mg PO DAILY 01/18/24 01/18/24 History Rosuvastatin Calcium [Crestor] 40 mg PO DAILY 01/18/24 01/18/24 History carvediloL [Coreg] 12.5 mg PO BID 01/18/24 01/18/24 History Allergies Allergy/AdvReac Type Severity Reaction Status Date / Time No Known Allergies Allergy Verified 01/18/24 14:47 Surgical - Exam Vital Signs Temp Pulse Resp BP Pulse Ox 97.8 F 65 18 115/78 94 L 01/18/24 12:06 01/18/24 12:06 01/18/24 12:06 01/18/24 12:06 01/18/24 12:06 General appearance: The patient is alert, oriented, appears in no acute distress. HET: Head is normocephalic and atraumatic. Pupils are equal and reactive. Neck: Supple. No carotid bruit. Heart: Regular. Lungs: Equal expansion, normal respiratory effort. Abdomen: Soft, nontender, nondistended. Extremities: Normal skin color and turgor. Neurological: Patient has facial symmetry, speech is fluent, right hand dominant, left hand grasp 4/5 compared to right 5/5, same with left lower extremity strength 4/5 compared to 5/5 on right. Results - Labs 01/19/24 05:55 01/19/24 05:55 Abnormal Lab Results - Last 24 Hours (Table) 1201/18/24 01/18/24 Range/Units 12:37 12:37 12:37 WBC 12.5 H (3.8-10.6) k/uL RBC 5.57 H (3.80-5.40) m/uL Hgb 16.7 H (11.4-16.0) gm/dL Hct 49.9 H (34.0-46.0) % Neutrophils # 7.8 H (1.3-7.7) k/uL APTT 19.7 L (22.0-30.0) sec Sodium 136 L (137-145) mmol/L Potassium 2.8 L (3.5-5.1) mmol/L Chloride 94 L (98-107) mmol/L Carbon Dioxide 34 H (22-30) mmol/L BUN 23 H (7-17) mg/dL Glucose (74-99) mg/dL Total Protein (6.3-8.2) g/dL Albumin (3.5-5.0) g/dL Free T3 pg/mL 1.60 L (2.30-4.20) pg/mL Urine Appearance (Clear) Urine Protein (Negative) Urine Glucose (UA) (Negative) Urine Ketones (Negative) Urine Blood (Negative) Urine Bilirubin (Negative) Ur Leukocyte Esterase (Negative) Urine WBC (0-5) /hpf Ur Squamous Epith Cells (0-4) /hpf Amorphous Sediment (None) /hpf Hyaline Casts (0-2) /lpf Urine Mucus (None) /hpf 24 01/19/24 Range/Units 12:37 05:55 WBC (3.8-10.6) k/uL RBC (3.80-5.40) m/uL Hgb (11.4-16.0) gm/dL Hct (34.0-46.0) % Neutrophils # (1.3-7.7) k/uL APTT (22.0-30.0) sec Sodium 135 L (137-145) mmol/L Potassium 2.6 L* (3.5-5.1) mmol/L Chloride (98-107) mmol/L Carbon Dioxide (22-30) mmol/L BUN 23 H (7-17) mg/dL Glucose 113 H (74-99) mg/dL Total Protein 5.8 L (6.3-8.2) g/dL Albumin 3.1 L (3.5-5.0) g/dL Free T3 pg/mL (2.30-4.20) pg/mL Urine Appearance Cloudy H (Clear) Urine Protein 3+ H (Negative) Urine Glucose (UA) 4+ H (Negative) Urine Ketones 1+ H (Negative) Urine Blood Trace H (Negative) Urine Bilirubin 1+ H (Negative) Ur Leukocyte Esterase Trace H (Negative) Urine WBC 10 H (0-5) /hpf Ur Squamous Epith Cells 15 H (0-4) /hpf Amorphous Sediment Rare H (None) /hpf Hyaline Casts 131 H (0-2) /lpf Urine Mucus Many H (None) /hpf Diabetes panel 01/18/24 01/19/24 Range/Units 12:37 05:55 Sodium 136 L 135 L (137-145) mmol/L Potassium 2.8 L 2.6 L* (3.5-5.1) mmol/L Chloride 94 L 103 (98-107) mmol/L Carbon Dioxide 34 H 29 (22-30) mmol/L BUN 23 H 23 H (7-17) mg/dL Creatinine 0.68 0.66 (0.52-1.04) mg/dL Glucose 92 113 H (74-99) mg/dL Calcium 9.8 8.9 (8.4-10.2) mg/dL AST 24 33 (14-36) U/L ALT 19 18 (4-34) U/L Alkaline Phosphatase 88 76 (38-126) U/L Total Protein 7.4 5.8 L (6.3-8.2) g/dL Albumin 4.1 3.1 L (3.5-5.0) g/dL Thyroid panel 01/18/24 Range/Units 12:37 TSH 0.847 (0.465-4.680) mIU/L Calcium panel 01/18/24 01/19/24 Range/Units 12:37 05:55 Calcium 9.8 8.9 (8.4-10.2) mg/dL Phosphorus 4.3 (2.5-4.5) mg/dL Albumin 4.1 3.1 L (3.5-5.0) g/dL Pituitary panel 12/03/24 12/04/24 Range/Units 12:37 05:55 Sodium 136 L 135 L (137-145) mmol/L Potassium 2.8 L 2.6 L* (3.5-5.1) mmol/L Chloride 94 L 103 (98-107) mmol/L Carbon Dioxide 34 H 29 (22-30) mmol/L BUN 23 H 23 H (7-17) mg/dL Creatinine 0.68 0.66 (0.52-1.04) mg/dL Glucose 92 113 H (74-99) mg/dL Calcium 9.8 8.9 (8.4-10.2) mg/dL TSH 0.847 (0.465-4.680) mIU/L Adrenal panel 01/18/24 01/19/24 Range/Units 12:37 05:55 Sodium 136 L 135 L (137-145) mmol/L Potassium 2.8 L 2.6 L* (3.5-5.1) mmol/L Chloride 94 L 103 (98-107) mmol/L Carbon Dioxide 34 H 29 (22-30) mmol/L BUN 23 H 23 H (7-17) mg/dL Creatinine 0.68 0.66 (0.52-1.04) mg/dL Glucose 92 113 H (74-99) mg/dL Calcium 9.8 8.9 (8.4-10.2) mg/dL Total Bilirubin 0.7 0.6 (0.2-1.3) mg/dL AST 24 33 (14-36) U/L ALT 19 18 (4-34) U/L Alkaline Phosphatase 88 76 (38-126) U/L Total Protein 7.4 5.8 L (6.3-8.2) g/dL Albumin 4.1 3.1 L (3.5-5.0) g/dL - Imaging Comments: Carotid duplex right ICA PSV 176, ICA/CCA ratio 2.2 left ICA PSV no flow seen in ICA. Impression reports extensive arthromatous plaquing with severe stenosis. Right severe to critical stenosis right ICA. Left internal carotid artery occlusion, present previously. Per carotid updated recommendations according to ICA PSV and ICA/CCA ratio right ICA is 50 to 69% stenosis, with left ICA occlusion. Head and neck CT angiogram report was currently pending. Independently reviewed by Dr. Davies with an estimated 50 to 60% stenosis of the right ICA with left ICA occlusion. Brain CT reports findings suspicious for acute/subacute ischemia involving the medial aspect of the right frontal lobe in the SELENA distribution. Remote injury to the left frontal lobe with encephalomalacia. Nonspecific white matter changes likely related to chronic small vessel ischemic disease. Assessment and Plan Assessment: 1. Symptomatic right internal carotid artery stenosis 2. Acute/subacute stroke of right frontal lobe 3. Left-sided weakness 4. Chronic left ICA occlusion 5. Current every day smoker 6. Coronary artery disease status post CABG 7. Peripheral arterial disease status post stents 8. Hypertension 9. Hyperlipidemia 10. Diabetes mellitus Plan: 1. CT angiogram head and neck pending 2. Continue aspirin and statin. Plavix has been changed to Brilinta per neurology 3. Agree with PT/OT/ST 4. Recommend smoking cessation 5. Continue with recommendations from neurology 6. Patient has symptomatic right ICA stenosis and would recommend carotid intervention. Patient has followed with Dr. Bauman and Dr. Pena interventional cardiology in the past for CABG as well as peripheral arterial revascularizatio n. Patient thinks that she would like to continue to follow with them. However we would be available for carotid intervention if patient so chooses. Patient would need cardiology clearance prior to any vascular surgical intervention for carotid stenosis. Thank you for this consultation, we will continue to follow. The impression and plan of care has been dictated as directed. I performed a history and examination of this patient, discussed the same with the dictator. I agree with the dictator's note ,documented as a scribe. Any additional findings or plans will be noted.
--- NOTE | 2024-01-19 11:22 | MR ---
EXAMINATION TYPE: MR brain wo con DATE OF EXAM: 01/19/2024 10:47 AM COMPARISON: 01/18/2024. CLINICAL INDICATION: Female, 68 years old with history of stroke. right sided weakness; PHH, Rt side weakness TECHNIQUE: Multi planar, multi sequence imaging was performed through the brain including: T1, T2, In version recovery, Diffusion weighted imaging, and gradient echo imaging. No gadolinium was given. FINDINGS: Scattered areas of restricted diffusion predominantly along the right ECA cortex extending anterior to posterior. Severe left frontal lobe remote injury and/or white matter change. The goodwin-white junctions, ventricular system, basal cisterns appear unremarkable. Scattered foci of high T2 signal intensity are seen within the periventricular white matter. Midline structures show n o abnormality. The susceptibility weighted images do not reveal any evidence for micro-hemorrhage. The bone marrow signal is within normal limits. Paranasal sinuses and mastoid air cells: No significant paranasal sinus disease. Visualized orbits: Orbital contents are intact. IMPRESSION: 1. Restricted diffusion along the right SELENA territory predominantly in the cortex 2. No evidence of intracranial mass 3. Remote left frontal injury versus nonspecific white matter changes, likely secondary to small ves kacie ischemic disease. [facility], , 01/19/2024 11:20 AM
[2024-01-19 12:45] LABS: Glucose,Whole Blood 148 mg/dL (70-110)
--- NOTE | 2024-01-19 13:57 | CT ---
EXAMINATION TYPE: CT angio neck DATE OF EXAM: 01/18/2024 11:16 PM COMPARISON: None. CLINICAL INDICATION: Female, 68 years old with history of carotid stenosis, carotid stenosis. Pt had US carotid duplex bilat, report states: Extensive atheromatous plaquing with severe stenosis. Right: Severe to critical stenosis right internal carotid artery. Left: Left internal carotid artery occlusi on, present previously., TECHNIQUE: Contiguous axial scanning of the neck performed with IV Contrast, patient injected with 65 mL of Isovue 370. Coronal and sagittal reconstructions performed. 3-D reconstructions generated on a dedicated independent workstation. CT DLP: 306.8 mGycm, Automated exposure control for dose reduction was used. FINDINGS: Reversal of the normal cervical lordosis with disc osteophyte complexes at C5-C6 and C6-C7. These may contribute to a moderate focal spinal canal stenosis at C5-C6 and mild at C6-C7. Mild to moderate atherosclerotic calcifications aortic arch. There is bovine configuration to the aor tic arch as well as aberrant direct takeoff of the left vertebral artery directly from the aortic arc h. There may be moderate atherosclerotic narrowing at the origin of the bilateral vertebral arteries. Ad ditional scattered mild atherosclerotic calcifications throughout both vessels. Scattered mild atherosclerotic calcifications throughout the common carotid artery. Prominent atherosclerotic calcifications at the right bifurcation resulting in moderate, just under 7 0% stenosis proximal right ICA. Incidental persistent origin right posterior cerebral artery. Scattered mild irregular atherosclerotic narrowing throughout the left common carotid artery. There is left ICA occlusion at its origin. String-like reconstitution at the carotid siphon and more adequate reconstitution at the level of the carotid terminus likely due to retrograde flow from the c ommunicate arteries. Incidental hypoplastic A-1 segment left anterior cerebral artery. NASCET criteria is utilized. IMPRESSION: 1. MILD TO MODERATE ATHEROSCLEROTIC CALCIFICATIONS THROUGHOUT. CHANGES RESULT IN A MODERATE, JUST UND ER 70% PROXIMAL RIGHT ICA STENOSIS. 2. LEFT ICA OCCLUSION AT ITS ORIGIN. INTRACRANIAL LEFT ICA RECONSTITUTION BY THE LEVEL OF THE CAROTID TERMINUS. 3. ABERRANT DIRECT TAKEOFF OF THE LEFT VERTEBRAL ARTERY DIRECTLY FROM THE AORTIC ARCH. MODERATE ATHER OSCLEROTIC STENOSES AT THE ORIGIN OF BOTH VERTEBRAL ARTERIES. [facility], , 01/19/2024 1:55 PM
[2024-01-19] MEDS ORDERED: DEXTROSE 50% SYRINGE 50 ML IVP PRN ×2 (15:20)
--- NOTE | 2024-01-19 15:34 | P.HPIM ---
History of Present Illness H&P Date: 01/19/24 Chief Complaint: Right-sided weakness, fall This is a 68-year-old female with past medical history significant for noncompliance of medications, CAD, CABG, TIA x 2, left carotid occlusion, follows with Dr. Pena at [facility], hypertension, hyperlipidemia, PAD-post stents, diabetes mellitus type 2, nicotine dependence and multiple other medical issues. Patient is a vague historian, does not recall the event, family at bedside reports they were not home there at the time but patient fell while attempting to go to the bathroom. ER chart reports a couple falls over the last few days. Denies head trauma. Family at bedside reports patient had stopped taking her meds unsure of timeframe. Patient and family reported right- sided weakness and some confusion since her fall. Patient reports mild frontal headache, denies visual changes/blurry vision, denies chest pain, palpitations or shortness of breath. Denies any difficulty with speech, swallowing brain CT reported acute/subacute ischemic stroke of the right frontal lobe with remote injury to the left frontal lobe with encephalomalacia. Carotid Doppler reported left ICA occlusion and severe right ICA stenosis. Currently maintained on aspirin, Plavix-changed to Brilinta, statin. Review of Systems Constitutional: Denied any fatigue denied any fever. Cardio vascular: denied any chest pain, palpitations Gastrointestinal denied any nausea vomiting Pulmonary: Denied any shortness of breath cough Neurologic denied any new focal deficits ROS Statement: Those systems with pertinent positive or pertinent negative responses have been documented in the HPI. ROS Other: All systems not noted in ROS Statement are negative. Past Medical History Past Medical History: Coronary Artery Disease (CAD), CVA/TIA, Diabetes Mellitus, Hyperlipidemia, Hypertension, Vascular Disorder Additional Past Medical History / Comment(s): neuropathy, stents in bilat legs History of Any Multi-Drug Resistant Organisms: None Reported Past Surgical History: Coronary Bypass/CABG, Heart Catheterization, Orthopedic Surgery Additional Past Surgical History / Comment(s): triple bypass 2013 Past Anesthesia/Blood Transfusion Reactions: No Reported Reaction Past Psychological History: No Psychological Hx Reported Smoking Status: Current every day smoker Past Alcohol Use History: Occasional Past Drug Use History: Marijuana - Past Family History Father Family Medical History: Coronary Artery Disease (CAD) Mother Family Medical History: Diabetes Mellitus Medications and Allergies Home Medications Medication Instructions Recorded Confirmed Type Semaglutide [Ozempic] 1 mg SQ Q7D 02/27/22 01/18/24 History lisinopriL [Zestril] 20 mg PO DAILY 02/27/22 01/18/24 History Escitalopram [Lexapro] 10 mg PO DAILY 07/08/23 01/18/24 History Aspirin EC [Ecotrin Low Dose] 81 mg PO DAILY 01/18/24 01/18/24 History Cholecalciferol [Vitamin D3 (25 25 mcg PO DAILY 01/18/24 01/18/24 History Mcg = 1000 Iu)] Dapagliflozin Propanediol [Farxiga] 10 mg PO DAILY 01/18/24 01/18/24 History Insulin Glargine,Hum.rec.anlog 35 units SQ DAILY 01/18/24 01/18/24 History [Toujeo Solostar] Pioglitazone [Actos] 15 mg PO DAILY 01/18/24 01/18/24 History carvediloL [Coreg] 12.5 mg PO BID 01/18/24 01/18/24 History Atorvastatin [Lipitor] 80 mg PO DAILY #30 tab 01/20/24 Rx Ticagrelor [Brilinta] 90 mg PO BID #60 tab 01/20/24 Rx Allergies Allergy/AdvReac Type Severity Reaction Status Date / Time No Known Allergies Allergy Verified 01/18/24 14:47 Physical Exam Vitals: Vital Signs Temp Pulse Pulse Resp BP BP Pulse Ox 01/19/24 14:41 97.5 F L 65 17 131/74 99 01/19/24 13:41 97.6 F 64 21 134/57 96 01/19/24 12:00 65 16 140/78 96 01/19/24 10:53 98.1 F 67 20 145/70 99 01/19/24 08:46 69 16 175/85 96 01/19/24 05:55 97.6 F 62 14 151/77 94 L 01/19/24 02:42 64 18 158/70 96 01/19/24 00:00 64 18 139/76 95 01/18/24 22:00 65 18 152/72 95 01/18/24 18:36 98.1 F 68 20 142/72 96 01/18/24 16:56 75 18 155/76 96 Intake and Output 01/19/24 01/19/24 01/19/24 06:59 14:59 22:59 Other: Weight 62.596 kg GENERAL: The patient is alert and oriented x3, not in any acute distress. Well developed, well nourished. HEENT: Pupils are round and equally reacting to light. EOMI. No scleral icterus. No conjunctival pallor. Normocephalic, atraumatic. No pharyngeal erythema. No thyromegaly. CARDIOVASCULAR: S1 and S2 present. No murmurs, rubs, or gallops. PULMONARY: Chest is clear to auscultation, no wheezing or crackles. ABDOMEN: Soft, nontender, nondistended, normoactive bowel sounds. No palpable organomegaly. MUSCULOSKELETAL: No joint swelling or deformity. EXTREMITIES: No cyanosis, clubbing, or pedal edema. NEUROLOGICAL: Gross neurological examination did not reveal any focal deficits. Minimal left sided extremity weakness, left hand and left lower extremity 4+ /5, compared to 5/5 on the right SKIN: No rashes. Results CBC & Chem 7: 01/20/24 06:48 01/20/24 06:48 Labs: Abnormal Lab Results - Last 24 Hours (Table) 01/18/24 01/19/24 01/19/24 Range/Units 12:37 05:55 12:43 Sodium 135 L (137-145) mmol/L Potassium 2.6 L* (3.5-5.1) mmol/L BUN 23 H (7-17) mg/dL Glucose 113 H (74-99) mg/dL POC Glucose (mg/dL) 148 H (70-110) mg/dL Total Protein 5.8 L (6.3-8.2) g/dL Albumin 3.1 L (3.5-5.0) g/dL Free T3 pg/mL 1.60 L (2.30-4.20) pg/mL Thrombosis Risk Factor Assmnt - Choose All That Apply Each Factor Represents 1 point: Varicose veins Each Risk Factor Represents 2 Points: Age 61-74 years Each Risk Factor Represents 5 Points: Stroke (< 1 month) Thrombosis Risk Factor Assessment Total Risk Factor Score: 8 Thrombosis Risk Factor Assessment Level: High Risk Assessment and Plan Assessment: Acute, subacute right frontal CVA, with left-sided weakness in a patient with history of TIA, workup in progress Symptomatic right internal carotid artery stenosis Hypokalemia Chronic left ICA occlusion Noncompliance of medications in a patient with history of Diabetes mellitus CAD, history of CABG Hypertension Hyperlipidemia Nicotine dependence Hypoalbuminemia Plan: Continue on current medication resume ,monitoring and symptomatic treatment. Echo pending .evaluated by neurology, neuro workup in progress including MRI ,neck CTA. Electrolyte supplementation for potassium with repeat level at 1600. Magnesium level added on/pending. Protein supplementation between meals. Speech therapy evaluation pending, PT/OT consulted. evaluated by vascular surgery with recommendations noted. Medication compliance, smoking cessation reinforced. Patient is deciding whether to proceed with carotid intervention at [facility] with Dr. Pena and Dr. Bauman or to stay local. The impression and plan of care has been dictated as directed. : I performed a history and examination of this patient, discussed the same with the dictator. I agree with the dictator's note ,documented as a scribe. Any additional findings or plans will be noted.
--- NOTE | 2024-01-19 15:36 | P.PN ---
Subjective Progress Note Date: 01/19/24 I am following up with the patient and she states she continues to be the same. She continues to have weakness over the left side. Objective - Vital Signs Vital signs: Vital Signs Temp 97.5 F L 01/19/24 14:41 Pulse 65 01/19/24 14:41 Resp 17 01/19/24 14:41 BP 131/74 01/19/24 14:41 Pulse Ox 99 01/19/24 14:41 FiO2 Intake & Output 01/18/24 01/19/24 01/19/24 18:59 06:59 18:59 Weight 62.596 kg 62.596 kg - Exam GENERAL: The patient is lying in bed and is not in acute distress. NEUROLOGICAL: Higher mental function: The patient is awake, alert, oriented to self, place and time. Patient is following commands. No aphasia and no neglect. Cranial nerves: The pupils are round, equal and reactive to light and accommodation. Visual melvin are full to confrontation throughout. Extraocular movement is intact no nystagmus is noted. Facial sensation is normal to touch throughout. The facial strength is normal throughout. Hearing is normal bilaterally to hand rub. Tongue is midline and moved [id number] without any difficulty. No dysarthria is noted. Shoulder shrug is normal bilaterally. Motor: The strength is right upper extremity is 5 out of 5, right lower extremity is about 5 - to 4+ out of 5. Left upper extremity is about a 4-4+ left lower extremity is also 4 to 4+ out of 5. Normal tone and bulk. Cerebellum: Normal finger to nose bilaterally. Sensation: Sensation is normal to touch throughout. Plantars are mute bilaterally. Some of the workup during this hospital visit consisted of: I reviewed the labs CT of the head is reported as finding suspicious for acute/subacute ischemic involving the medial aspect of the right frontal lobe in the SELENA distribution. Remote injury in the left frontal lobe with encephalomalacia. I personally r eviewed the CT and I agree it seems somewhat subacute to acute over the right frontal. Carotid duplex is reported as extensive atheromatous plaquing with severe stenosis. Right severe to critical stenosis over the right internal carotid artery. Left internal carotid artery occlusion, present previously. - Labs CBC & Chem 7: 01/19/24 05:55 01/19/24 05:55 Labs: Abnormal Lab Results - Last 24 Hours (Table) 01/18/24 01/19/24 01/19/24 Range/Units 12:37 05:55 12:43 Sodium 135 L (137-145) mmol/L Potassium 2.6 L* (3.5-5.1) mmol/L BUN 23 H (7-17) mg/dL Glucose 113 H (74-99) mg/dL POC Glucose (mg/dL) 148 H (70-110) mg/dL Total Protein 5.8 L (6.3-8.2) g/dL Albumin 3.1 L (3.5-5.0) g/dL Free T3 pg/mL 1.60 L (2.30-4.20) pg/mL Assessment and Plan Assessment: This is a 68-year-old woman with history of stroke, left carotid occlusion who presented emergency department because of right sided weakness that she noticed her weakness yesterday at night and that was mild but today she felt the weakness was severe and she had a hard time getting up. On examination patient has left-sided weakness and she did acknowledge that the left side is weak and is new compared to the right. CT of the head shows acute to subacute ischemic stroke suspicious over the right frontal. Acute ischemic stroke and it seems over the right frontal and on examination she had left-sided weakness. No IV thrombolytic since outside the window and the risk with the benefit. Likely etiology of stroke is symptomatic carotid stenosis. Severe stenosis over the right ICA carotid duplex and this seems symptomatic History of left ICA occlusion History of old stroke Diabetes mellitus Hypertension Tobacco use Plan: Patient is on aspirin 81 mg, Plavix 75 mg at home and since the patient has strokelike symptoms she failed her medication and I will stop the Plavix and started her on Brilinta with 180 mg loading dose (on 01/18/2024) then after that 90 mg twice daily. Patient is on Lipitor 80 mg daily and that sufficient for secondary stroke prophylaxis MRI of the brain is completed and pending final result. I felt patient has right SELENA stroke that is acute to subacute. CT angiography of the neck official report is pending. Consulted vascular surgery team for the carotid stenosis 2D echo, lipid panel are ordered and pending Continue neurochecks Cardiac monitoring PT OT and [employer] are consulted Patient was counseled on tobacco cessation Will defer the rest of the medical management to primary team and other sp ecialist. For DVT prophylaxis On subcu heparin Plan discussed with the patient. Time with Patient: Less than 30
[2024-01-19 16:15] LABS: Glucose,Whole Blood 249 mg/dL (70-110)
[2024-01-19] MEDS: INSULIN ASPART (NovoLOG) 100 UNIT/ML VIAL SQ SCH (16:45)
[2024-01-19 20:02] LABS: Glucose,Whole Blood 186 mg/dL (70-110)
[2024-01-20 06:18] LABS: Glucose,Whole Blood 97 mg/dL (70-110)
[2024-01-20 07:32] LABS: Basophils % (A) 0 %; Eosinophils # (A) 0.1 k/uL (0-0.7); Eosinophils % (A) 2 %; HCT 43.9 % (34.0-46.0); Lymphocytes # (A) 2.5 k/uL (1.0-4.8); Lymphocytes % (A) 33 %; MCH 29.8 pg (25.0-35.0); MCV 93.2 fL (80.0-100.0); Monocytes # (A) 0.5 k/uL (0-1.0); Monocytes % (A) 6 %; Neutrophils # (A) 4.4 k/uL (1.3-7.7); Neutrophils % (A) 57 %; Platelet Count 217 k/uL (150-450); RBC 4.71 m/uL (3.80-5.40); RDW 13.1 % (11.5-15.5); WBC 7.7 k/uL (3.8-10.6)
[2024-01-20 08:23] LABS: African American GFR (CKD) >90 (>60 ml/min/1.73 sqM); Anion Gap 5 mmol/L; Blood Urea Nitrogen 16 mg/dL (7-17); Calcium 8.7 mg/dL (8.4-10.2); Carbon Dioxide 25 mmol/L (22-30); Chloride 108 mmol/L (98-107); Glucose 80 mg/dL (74-99); Non-African American GFR(CKD) >90 (>60 ml/min/1.73 sqM); Potassium 3.5 mmol/L (3.5-5.1); Sodium 138 mmol/L (137-145)
--- NOTE | 2024-01-20 09:51 | P.PN ---
Subjective Progress Note Date: 01/20/24 Principal diagnosis: Carotid stenosis Patient seen and examined today as a follow-up. No new acute focal deficits. No acute changes through the night. Patient is alert and oriented. Objective - Vital Signs Vital signs: Vital Signs Temp 98.1 F 01/19/24 20:31 Pulse 65 01/20/24 04:20 Resp 18 01/20/24 04:20 BP 175/78 01/20/24 04:20 Pulse Ox 97 01/20/24 04:20 FiO2 Intake & Output 01/19/24 01/20/24 01/20/24 18:59 06:59 18:59 Intake Total 0 Balance 0 Weight 62.596 kg 62.5 kg Intake: Oral 0 Other: Voiding Method Toilet # Voids 1 1 - Exam General appearance: The patient is alert, oriented, appears in no acute distress. HET: Head is normocephalic and atraumatic. Pupils are equal and reactive. Neck: Supple. No audible bruit. Heart: Regular. Lungs: Equal expansion, normal respiratory effort. Abdomen: Soft, nondistended. Extremities: Normal skin color and turgor. Neurological: Alert and oriented. Left upper and lower extremity weakness compared to right, 4/5. - Labs CBC & Chem 7: 01/20/24 06:48 01/20/24 06:48 Labs: Abnormal Lab Results - Last 24 Hours (Table) 01/19/24 01/19/24 01/19/24 Range/Units 12:43 16:13 20:01 Chloride (98-107) mmol/L POC Glucose (mg/dL) 148 H 249 H 186 H (70-110) mg/dL 01/20/24 Range/Units 06:48 Chloride 108 H (98-107) mmol/L POC Glucose (mg/dL) (70-110) mg/dL Assessment and Plan Assessment: 1. Symptomatic right internal carotid artery stenosis 2. Acute/subacute stroke of right frontal lobe 3. Left-sided weakness 4. Chronic left ICA occlusion 5. Current every day smoker 6. Coronary artery disease status post CABG 7. Peripheral arterial disease status post stents 8. Hypertension 9. Hyperlipidemia 10. Diabetes mellitus Plan: 1. CT angiogram head and neck pending 2. Continue aspirin and statin. Plavix has been changed to Brilinta per neurology 3. Agree with PT/OT/ST 4. Discussed with patient importance of smoking cessation. Patient offered nicotine patch. Quit smoking hotline 1 800 quit-now given to patient. 5. Continue with recommendations from neurology 6. Patient has symptomatic right ICA stenosis and we would recommend carotid intervention. Patient has followed with Dr. Bauman and Dr. Pena interventional cardiology in the past for CABG as well as peripheral arterial revascularization. Patient considering having intervention done here in [place]. She will need cardiology clearance prior to any vascular surgical intervention for carotid stenosis, and this can be done as an outpatient with her director patient accounting. Thank you for this consultation, patient is cleared from vascular surgery for discharge. The impression and plan of care has been dictated as directed. Dr. Marroquin I performed a history and examination of this patient, discussed the same with the dictator. I agree with the dictator's note ,documented as a scribe. Any additional findings or plans will be noted.
[2024-01-20 11:17] LABS: Glucose,Whole Blood 301 mg/dL (70-110)
[2024-01-20 13:44] VITALS: BMI 23.6
--- NOTE | 2024-01-20 13:58 | CA ---
Transthoracic Echo Report Name: Candi Burch Age: 68 Gender: F : 1955 Exam Date: 01/20/2024 08:36 Exam Location: [facility] Ht (in): 64 Wt (lb): 138 Ordering Physician: Asif Nguyen DO Attending/Referring Phys: Stage Electrician Mally Stinson RDCS Procedure CPT: Indications: Thrombus Cardiac Hx: Hx of CABG Technical Quality: Fair Contrast 1: Total Dose (mL): Contrast 2: Total Dose (mL): MEASUREMENTS (Male / Female) Normal Values 2D ECHO LV Diastolic Diameter PLAX 5.2 cm 4.2 - 5.9 / 3.9 - 5.3 cm LV Systolic Diameter PLAX 3.7 cm IVS Diastolic Thickness 1.1 cm 0.6 - 1.0 / 0.6 - 0.9 cm LVPW Diastolic Thickness 1.3 cm 0.6 - 1.0 / 0.6 - 0.9 cm LV Relative Wall Thickness 0.5 RV Internal Dim ED PLAX 3.2 cm LVOT Diameter 2.0 cm LA Systolic Diameter LX 5.0 cm 3.0 - 4.0 / 2.7 - 3.8 cm LV Diastolic Volume MOD 4C 108.5 cm??? LV Systolic Volume MOD 4C 58.4 cm??? LV Ejection Fraction MOD 4C 46.2 % LV Cardiac Index MOD 4C 1753.0 cm???/min???m??? LV Diastolic Length 4C 7.8 cm LV Systolic Length 4C 6.8 cm LV Diastolic Volume MOD 2C 107.9 cm??? LV Systolic Volume MOD 2C 66.0 cm??? LV Ejection Fraction MOD 2C 38.8 % LV Cardiac Index MOD 2C 1460.9 cm???/min???m??? LV Diastolic Length 2C 7.5 cm LV Systolic Length 2C 6.6 cm LA Volume 67.7 cm??? 18 - 58 / 22 - 52 cm??? LA Volume Index 40.1 cm???/m??? 16 - 28 cm???/m??? M-MODE Aortic Root Diameter MM 3.0 cm AV Cusp Separation MM 1.9 cm DOPPLER AV Peak Velocity 112.5 cm/s AV Peak Gradient 5.1 mmHg MV Area PHT 3.0 cm??? Mitral E Point Velocity 115.5 cm/s Mitral A Point Velocity 88.5 cm/s Mitral E to A Ratio 1.3 MV Deceleration Time 250.5 ms FINDINGS Left Ventricle Left ventricular ejection fraction is estimated at 40 %. Mildly increased septal wall thickness. Mildly increased posterior wall thickness. Moderately reduced global left ventricular systolic function. Right Ventricle Normal right ventricular size. Unable to estimate the right ventricular systolic pressure. Right Atrium Normal right atrial size. No right atrial thrombus or mass seen. Left Atrium Severely increased left atrial diameter. Moderately increased left atrial volume. Mildly increased left atrial area. No left atrial thrombus or mass present. Mitral Valve Mitral valve thickened. Mitral annular calcification. Aortic Valve Trileaflet aortic valve. Aortic valve sclerosis. Tricuspid Valve Structurally normal tricuspid valve. No tricuspid stenosis, regurgitation or prolapse. Pulmonic Valve Structurally normal pulmonic valve. No pulmonic regurgitation. Pericardium No pericardial or pleural effusion. Aorta Normal size aortic root and proximal ascending aorta. CONCLUSIONS Left ventricular ejection fraction 40% Mildly increased left ventricular wall thickness Moderately dilated left atrium No pericardial effusion Previewed by: Dr. Sidney Padron DO (Electronically Signed) Final Date: 20 January 2024 13:58
--- NOTE | 2024-01-20 14:18 | P.DS ---
Providers Date of admission: 01/18/24 15:56 Expected date of discharge: 01/20/24 Attending physician: Amish Verma Consults: 01/18/24 15:56 Consult Physician Urgent Consulting Provider: Jae Phelps Consult Reason/Comments: cva Do you want consulting provider notified?: Yes 01/18/24 18:05 Consult Physician Urgent Consulting Provider: Maine Davies Consult Reason/Comments: carotid stenosis Do you want consulting provider notified?: Yes Primary care physician: Amish Verma Hospital Course: Final Diagnoses: Acute, subacute right frontal CVA, with left-sided weakness in a patient with history of TIA, workup in progress Symptomatic right internal carotid artery stenosis, outpatient intervention recommended. Hypokalemia Chronic left ICA occlusion Noncompliance of medications in a patient with history of. Compliance reinforced Diabetes mellitus, hemoglobin A1c 16.9, further diabetic teaching outpatient in clinic with PCP CAD, history of CABG Hypertension Hyperlipidemia Nicotine dependence, cessation reinforced Hypoalbuminemia Hospital course: This is a 68-year-old female with past medical history significant for noncompliance of medications, CAD, CABG, TIA x 2, left carotid occlusion, follows with Dr. Pena at [facility], hypertension, hyperlipidemia, PAD-post stents, diabetes mellitus type 2, nicotine dependence and multiple other medical issues. Patient is a vague historian, does not recall the event, family at bedside reports they were not home there at the time but patient fell while attempting to go to the bathroom. ER chart reports a couple falls over the last few days. Denies head trauma. Family at bedside reports patient had stopped taking her meds unsure of timeframe. Patient and family reported right- sided weakness and some confusion since her fall. Patient reports mild frontal headache, denies visual changes/blurry vision, denies chest pain, palpitations or shortness of breath. Denies any difficulty with speech, swallowing brain CT reported acute/subacute ischemic stroke of the right frontal lobe with remote injury to the left frontal lobe with encephalomalacia. Carotid Doppler reported left ICA occlusion and severe right ICA stenosis. Currently maintained on aspirin, Plavix-changed to Brilinta, statin. Echo pending .evaluated by neurology, neuro workup in progress including MRI ,neck CTA. Electrolyte supplementation for potassium with repeat level at 1600. Magnesium level added on/pending. Protein supplementation between meals. Speech therapy evaluation pending, PT/OT consulted. evaluated by vascular surgery with recommendations noted. Medication compliance, smoking cessation reinforced. Patient is deciding whether to proceed with carotid intervention at [facility] with Dr. Pena and Dr. Bauman or to stay local. Echo reporting EF 40%, moderately dilated left atrium, no pericardial effusion. Brain MRI reported restricted diffusion along the right SELENA territory predominantly in the cortex, no evidence of intracranial mass, remote left frontal injury versus nonspecific white matter changes likely secondary to small vessel ischemic disease.Neck CTA reported mild to moderate arteriosclerotic calcifications throughout changes resulting in a moderate just under 70% proximal right ICA stenosis, left ICA occlusion at its origin, intracranial left ICA reconstitution by the level of the carotid terminus, apparent direct takeoff of the left vertebral artery directly from the aortic arch. Moderate anterior sclerotic stenosis at the origin of both vertebral arteries.No new symptoms reported. No overnight events. Patient will be discharged home with home care today in a stable condition with guarded prognosis, pending neurology's final DC recommendations and clearance. The impression and plan of care has been dictated as directed. : I performed a history and examination of this patient, discussed the same with the dictator. I agree with the dictator's note ,documented as a scribe. Any additional findings or plans will be noted. Patient Condition at Discharge: Stable Plan - Discharge Summary New Discharge Prescriptions: New Ticagrelor [Brilinta] 90 mg PO BID #60 tab Atorvastatin [Lipitor] 80 mg PO DAILY #30 tab Continue Semaglutide [Ozempic] 1 mg SQ Q7D Escitalopram [Lexapro] 10 mg PO DAILY Pioglitazone [Actos] 15 mg PO DAILY Insulin Glargine,Hum.rec.anlog [Toujeo Solostar] 35 units SQ DAILY Dapagliflozin Propanediol [Farxiga] 10 mg PO DAILY Aspirin EC [Ecotrin Low Dose] 81 mg PO DAILY carvediloL [Coreg] 12.5 mg PO BID lisinopriL [Zestril] 20 mg PO DAILY Cholecalciferol [Vitamin D3 (25 Mcg = 1000 Iu)] 25 mcg PO DAILY Discontinued Clopidogrel [Plavix] 75 mg PO DAILY 30 Days #30 tab Rosuvastatin Calcium [Crestor] 40 mg PO DAILY Discharge Medication List Semaglutide [Ozempic] 1 mg SQ Q7D 02/27/22 [History] lisinopriL [Zestril] 20 mg PO DAILY 02/27/22 [History] Escitalopram [Lexapro] 10 mg PO DAILY 07/08/23 [History] Aspirin EC [Ecotrin Low Dose] 81 mg PO DAILY 01/18/24 [History] Cholecalciferol [Vitamin D3 (25 Mcg = 1000 Iu)] 25 mcg PO DAILY 01/18/24 [History] Dapagliflozin Propanediol [Farxiga] 10 mg PO DAILY 01/18/24 [History] Insulin Glargine,Hum.rec.anlog [Toujeo Solostar] 35 units SQ DAILY 01/18/24 [History] Pioglitazone [Actos] 15 mg PO DAILY 01/18/24 [History] carvediloL [Coreg] 12.5 mg PO BID 01/18/24 [History] Atorvastatin [Lipitor] 80 mg PO DAILY #30 tab 01/20/24 [Rx] Ticagrelor [Brilinta] 90 mg PO BID #60 tab 01/20/24 [Rx] Follow up Appointment(s)/Referral(s): [facility], [NON-STAFF] - Maine Davies DO [STAFF PHYSICIAN] - 1 Week Amish Verma DO [Primary Care Provider] - 3 Days Patient Instructions/Handouts: How to Stop Smoking (DC), Cigarette Smoking and Your Health (GEN) Activity/Diet/Wound Care/Special Instructions: No smoking Discharge Disposition: HOME WITH HOME HEALTH SERVICES
[2024-01-20 16:27] LABS: Glucose,Whole Blood 175 mg/dL (70-110)
--- NOTE | 2024-01-20 17:29 | P.PN ---
Subjective Progress Note Date: 01/20/24 I am Following-up with the patient and she feels about the same. No new neurological issues. I spoke with the vascular surgery team, spoke with Dr. Davies and they will not perform intervention as inpatient and will have her follow-up with her cardiology interventionalist (Dr. Pena) as outpatient. Objective - Vital Signs Vital signs: Vital Signs Temp 98.5 F 01/20/24 15:57 Pulse 56 L 01/20/24 15:57 Resp 17 01/20/24 15:57 BP 169/72 01/20/24 15:57 Pulse Ox 98 01/20/24 11:30 FiO2 Intake & Output 01/19/24 01/20/24 01/20/24 18:59 06:59 18:59 Intake Total 0 1838 Balance 0 1838 Weight 62.596 kg 62.5 kg 62.5 kg Intake: Intake, IV Titration 700 Amount Sodium Chloride 0.9% 1, 700 000 ml @ 100 mls/hr IV . Q10H TU Rx#:[id number] Oral 0 1138 Other: Voiding Method Toilet Toilet # Voids 1 1 3 - Exam GENERAL: The patient is lying in bed and is not in acute distress. NEUROLOGICAL: Higher mental function: The patient is awake, alert, oriented to self, place and time. Patient is following commands. No aphasia and no neglect. Cranial nerves: The pupils are round, equal and reactive to light and acco mmodation. Visual melvin are full to confrontation throughout. Extraocular movement is intact no nystagmus is noted. Facial sensation is normal to touch throughout. The facial strength is normal throughout. Hearing is normal bilaterally to hand rub. Tongue is midline and moved [id number] without any difficulty. No dysarthria is noted. Shoulder shrug is normal bilaterally. Motor: The strength is right upper extremity is 5 out of 5, right lower extremity is about 5 - to 4+ out of 5. Left upper extremity is about a 4-4+ left lower extremity is also 4 to 4+ out of 5. Normal tone and bulk. Cerebellum: Normal finger to nose bilaterally. Sensation: Sensation is normal to touch throughout. Plantars are mute bilaterally. Some of the workup during this hospital visit consisted of: CT of the head is reported as finding suspicious for acute/subacute ischemic involving the medial aspect of the right frontal lobe in the SELENA distribution. Remote injury in the left frontal lobe with encephalomalacia. I personally reviewed the CT and I agree it seems somewhat subacute to acute over the right frontal. Carotid duplex is reported as extensive atheromatous plaquing with severe stenosis. Right severe to critical stenosis over the right internal carotid artery. Left internal carotid artery occlusion, present previously. MRI of the brain is reported as restricted diffusion along the right SELENA territory predominantly in the cortex. No evidence of intracranial mass. Remote left frontal injury versus nonspecific white matter changes, likely secondary to small vessel ischemic disease. CT angiography of the neck: Reported as mild to moderate atherosclerotic calcification throughout. Changes result in moderate just under 70% proximal right ICA stenosis. Left ICA occlusion at the origin. Intracranial left ICA reconstitution by the level of the carotid terminus. Aberrant direct takeoff of the left vertebral artery directly from the aortic arch. Moderate atherosclerotic stenosis at the origin of both vertebral artery. 2D echo is reported as left ventricle ejection fraction 40%. Moderately dilated left atrium. - Labs CBC & Chem 7: 01/20/24 06:48 01/20/24 06:48 Labs: Abnormal Lab Results - Last 24 Hours (Table) 01/19/24 01/20/24 01/20/24 Range/Units 20:01 06:48 06:48 Chloride 108 H (98-107) mmol/L POC Glucose (mg/dL) 186 H (70-110) mg/dL Hemoglobin A1c 16.9 H (<=6.0) % 01/20/24 01/20/24 Range/Units 11:15 16:25 Chloride (98-107) mmol/L POC Glucose (mg/dL) 301 H 175 H (70-110) mg/dL Hemoglobin A1c (<=6.0) % Assessment and Plan Assessment: This is a 68-year-old woman with history of stroke, left carotid occlusion who presented emergency department because of right sided weakness that she noticed her weakness yesterday at night and that was mild but today she felt the weakness was severe and she had a hard time getting up. On examination patient has left-sided weakness and she did acknowledge that the left side is weak and is new compared to the right. CT of the head shows acute to subacute ischemic stroke suspicious over the right frontal. Acute ischemic stroke (over the right SELENA territory) l and on examination she had left-sided weakness. No IV thrombolytic since outside the window and the risk with the benefit. Likely etiology of stroke is symptomatic carotid stenosis. Severe stenosis over the right ICA carotid duplex and this seems symptomatic History of left ICA occlusion History of old stroke Diabetes mellitus Hypertension Tobacco use Plan: Patient is on aspirin 81 mg, Plavix 75 mg at home and since the patient has strokelike symptoms she failed her medication and I will stop the Plavix and started her on Brilinta with 180 mg loading dose (on 01/18/2024) then after that 90 mg twice daily. Patient to remain on dual antiplatelet for at least 90 days and will have discontinuation of Brilinta to her outpatient neurologist or inter ventional cement paver/vascular surgeon. Patient is on Lipitor 80 mg daily and that sufficient for secondary stroke prophylaxis Vascular surgery team agreed that patient has symptomatic right ICA stenosis and they stated no intervention as an inpatient and she will have the patient follow-up with her cardiac interventionalists as an outpatient, Dr. Pena. Pending lipid panel. Continue neurochecks Cardiac monitoring PT OT and FULL TIME are consulted Patient was counseled on tobacco cessation Will defer the rest of the medical management to primary team and other specialist. For DVT prophylaxis On subcu heparin Plan discussed with the patient and spoke with Dr. Davies (vascular surgeon). Otherwise, no further neurological work-up. Time with Patient: Less than 30
[2024-01-20 19:55] LABS: Glucose,Whole Blood 196 mg/dL (70-110)
[2024-01-21 06:01] LABS: Glucose,Whole Blood 76 mg/dL (70-110)
--- NOTE | 2024-01-21 11:09 | P.PN ---
Subjective Progress Note Date: 01/21/24 Principal diagnosis: Carotid stenosis Patient is seen and examined today as a follow-up. Discharge was placed yesterday however apparently patient's son stated patient did not have appropriate supplies at home for discharge. Discharge was held. No acute changes through the night. Plan is for discharge home today. Objective - Vital Signs Vital signs: Vital Signs Temp 98.1 F 01/21/24 03:14 Pulse 55 L 01/21/24 06:30 Resp 16 01/21/24 03:14 BP 152/66 01/21/24 03:14 Pulse Ox 98 01/20/24 11:30 FiO2 Intake & Output 01/20/24 01/21/24 01/21/24 18:59 06:59 18:59 Intake Total 1955 240 Balance 1955 240 Weight 62.5 kg 62.1 kg Intake: Intake, IV Titration 700 Amount Sodium Chloride 0.9% 1, 700 000 ml @ 100 mls/hr IV . Q10H TU Rx#:[id number] Oral 1256 240 Other: Voiding Method Toilet Toilet # Voids 3 1 - Exam General appearance: The patient is alert, oriented, appears in no acute distress. HET: Head is normocephalic and atraumatic. Pupils are equal and reactive. Neck: Supple. No audible bruit. Heart: Regular. Lungs: Equal expansion, normal respiratory effort. Abdomen: Soft, nondistended. Extremities: Normal skin color and turgor. Neurological: Alert and oriented. Left upper and lower extremity weakness compared to right, 4/5. - Labs CBC & Chem 7: 01/20/24 06:48 01/20/24 06:48 Labs: Abnormal Lab Results - Last 24 Hours (Table) 01/20/24 01/20/24 01/20/24 Range/Units 06:48 11:15 16:25 POC Glucose (mg/dL) 301 H 175 H (70-110) mg/dL Hemoglobin A1c 16.9 H (<=6.0) % 01/20/24 Range/Units 19:53 POC Glucose (mg/dL) 196 H (70-110) mg/dL Hemoglobin A1c (<=6.0) % Assessment and Plan Assessment: 1. Symptomatic right internal carotid artery stenosis 2. Acute/subacute stroke of right frontal lobe 3. Left-sided weakness 4. Chronic left ICA occlusion 5. Current every day smoker 6. Coronary artery disease status post CABG 7. Peripheral arterial disease status post stents 8. Hypertension 9. Hyperlipidemia 10. Diabetes mellitus Plan: 1. CT angiogram head and neck pending 2. Continue aspirin and statin. Plavix has been changed to Brilinta per neurology 3. Agree with PT/OT/ST 4. Discussed with patient importance of smoking cessation. Patient offered nicotine patch. Quit smoking hotline 1 800 quit-now given to patient. 5. Continue with recommendations from neurology 6. Patient has symptomatic right ICA stenosis and we would recommend carotid intervention. Patient has followed with Dr. Bauman and Dr. Pena interventional cardiology in the past for CABG as well as peripheral arterial revascularization. Patient considering having intervention done here in [place]. 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 Thank you for this consultation, patient is cleared from vascular surgery for discharge. The impression and plan of care has been dictated as directed. Dr. Davies I performed a history and examination of this patient, discussed the same with the dictator. I agree with the dictator's note ,documented as a scribe. Any additional findings or plans will be noted.
[2024-01-21 11:24] LABS: Glucose,Whole Blood 205 mg/dL (70-110)
[2024-01-21 14:27] VITALS: RESP 17
[2024-01-21 14:35] VITALS: BP 151/62; PULSE 59; TEMP 98.5
[2024-01-21 16:24] LABS: Glucose,Whole Blood 99 mg/dL (70-110)
== END 2024-01-21 17:32 | disposition home health service (06) | DRG 65 ==
LOC: EC 12:05 → 3SCARD 15:56 → 3NCARDOBS 01-19 09:51 → 3SCARD 01-19 13:31 → 3NCARDOBS 01-19 14:12 → 3SCARD 01-19 14:12
PROVIDERS: ADMIT Family Medicine; ATTEND Family Medicine
DX: I63.521 Cerebral infarction due to unspecified occlusion or stenosis of right anterior cerebral artery (principal); G81.94 Hemiplegia, unspecified affecting left nondominant side; I69.351 Hemiplegia and hemiparesis following cerebral infarction affecting right dominant side; I65.23 Occlusion and stenosis of bilateral carotid arteries; E87.6 Hypokalemia; Z91.148 Patient's other noncompliance with medication regimen for other reason; E11.51 Type 2 diabetes mellitus with diabetic peripheral angiopathy without gangrene; Z95.1 Presence of aortocoronary bypass graft; E78.5 Hyperlipidemia, unspecified; F17.210 Nicotine dependence, cigarettes, uncomplicated; I65.03 Occlusion and stenosis of bilateral vertebral arteries; E11.42 Type 2 diabetes mellitus with diabetic polyneuropathy; E88.09 Other disorders of plasma-protein metabolism, not elsewhere classified; I10 Essential (primary) hypertension; Z95.820 Peripheral vascular angioplasty status with implants and grafts; I25.10 Atherosclerotic heart disease of native coronary artery without angina pectoris; W19.XXXA Unspecified fall, initial encounter; Z79.02 Long term (current) use of antithrombotics/antiplatelets; Z79.82 Long term (current) use of aspirin; Z79.84 Long term (current) use of oral hypoglycemic drugs; Z79.899 Other long term (current) drug therapy; Z82.49 Family history of ischemic heart disease and other diseases of the circulatory system; Z91.128 Patient's intentional underdosing of medication regimen for other reason; Z91.81 History of falling
CPT/HCPCS: 36415; 70450; 70498; 70551; 71046; 80048; 80053; 80061; 81001; 83036; 83605; 83735; 84100; 84132; 84439; 84443; 84481; 84484; 85025; 85610; 85730; 93005; 93306; 93880; 96361; 96365; 96366; 96372; 96375; 99285